=== PATIENT | male | born 1965 | race Caucasian/White ===

== ENCOUNTER 2021-04-20 14:09 | Outpatient (REF) | payer MEDICAID, SELFPAY | END 2021-04-20 14:10 | disposition home or self-care (01) | LOC: HO.SCI 14:09 | PROVIDERS: Visit Provider Nurse Practitioner Family | DX: Z13.89 Encounter for screening for other disorder (principal) ==

== ENCOUNTER 2021-07-24 10:24 | Outpatient (REF) | payer MEDICAID, SELFPAY ==
--- NOTE | ~2021-07-24 | US_ITS ---
EXAMINATION: US COMPLETE ABDOMEN WITH LIVER ELASTOGRAPHY CLINICAL INFORMATION: Viral hepatitis C. COMPARISON: None. TECHNIQUE: Real-time imaging of the abdominal viscera. Noninvasive ultrasound liver fibrosis assessment is performed using Uriah ElastPQ point quantification shear wave elastography (pSWE) with a C5-2 MHz transducer. Multiple elastography samples are obtained. FINDINGS: PANCREAS: Normal. The visualized pancreatic head and body are normal in appearance. The remainder of the pancreas is obscured from visualization by the overlying bowel gas. ABDOMINAL AORTA: The proximal, middle, and distal aortic segments are normal in caliber. INFERIOR VENA CAVA: Visualized portions are normal. LIVER: The liver demonstrates normal size, nodular contour and echogenicity. No focal lesion or intrahepatic biliary duct dilatation. The right lobe measures 17.3 cm in length. The left lobe measures 11.0 cm in length. Portal flow is hepatopedal. Shear wave liver elastography median stiffness is 1.71 m/s (reference: normal median stiffness is 1.3 m/s or less). IQR/median stiffness to assess sampling precision is 0.44 (reference: good quality data set is IQR/median stiffness of 0.15 or less). GALLBLADDER: Normal. The gallbladder is physiologically distended without evidence of stones, sludge, polyps, wall thickening or pericholecystic fluid. COMMON BILE DUCT: Normal in caliber measuring 0.2 cm in diameter. RIGHT KIDNEY: There is punctate foci lower pole with no twinkle artifact. No hydronephrosis. No renal calculi or focal parenchymal lesions. The kidney measures 11.4 cm in maximum dimension. LEFT KIDNEY: Normal. No hydronephrosis. No renal calculi or focal parenchymal lesions. The kidney measures 12.2 cm in maximum dimension. SPLEEN: Normal. The spleen measures 12.7 cm in maximum dimension. FREE FLUID: None. US/US abdomen comp w elastography IMPRESSION: 1. Punctate foci lower pole with no twinkle artifact. Question calcification right kidney. Slightly nodular surface of the liver but no focal lesion. Hepatopedal flow seen in the main portal vein on Doppler exam. 2. Liver elastography: Liver stiffness measures 1.71m/s; cACLD ruled out. REFERENCE: Society of Radiologists in Ultrasound Liver Stiffness Thresholds (2020): LIVER STIFFNESS THRESHOLDS: *Liver Stiffness equal or less than 1.3 m/s: High probability of being normal. *Liver Stiffness less than 1.7 m/s: In the absence of other known clinical signs, rules out compensated advanced chronic liver disease. *Liver Stiffness 1.7-2.1 m/s: Suggestive of compensated advanced chronic liver disease but need further test for confirmation. *Liver Stiffness over 2.1 m/s: Rules in compensated advanced chronic liver disease. *Liver Stiffness over 2.4 m/s: Suggestive of clinically significant portal hypertension. QUALITY OF DATA SET: *IQR/Median value equal or less than 0.15 implies a quality data set. *IQR/Median value over 0.15 implies a poor quality data set. SIGNIFICANT CHANGE FROM PRIOR EXAM: Significant change if liver stiffness measurement is 10% or greater from prior exam. OTHER CONSIDERATIONS: The stage of liver fibrosis may be overestimated in the setting of acute hepatitis, liver inflammation, elevated liver function tests, hepatic vascular congestion, obstructive cholestasis, non-fasting state, and infiltrative diseases such as amyloidosis and lymphoma. In some patients with NAFLD, the liver stiffness thresholds for compensated advanced chronic liver disease may be lower. In causes other than viral hepatitis and NAFLD, liver stiffness thresholds are not well established.
== END 2021-07-24 10:25 | disposition home or self-care (01) ==
LOC: HO.US 10:24
DX: B19.20 Unspecified viral hepatitis C without hepatic coma (principal)
CPT/HCPCS: 76705; 76981

== ENCOUNTER 2023-04-21 11:31 | Outpatient (REF) | payer MEDICAID, SELFPAY | END 2023-04-21 11:32 | disposition home or self-care (01) | LOC: HO.HHCL 11:31 | PROVIDERS: Visit Provider Emergency Medicine | DX: F11.20 Opioid dependence, uncomplicated (principal) | CPT/HCPCS: 36415; 86780 ==

== ENCOUNTER 2023-05-06 18:45 | Outpatient (REF) | payer MEDICAID, SELFPAY | END 2023-05-06 18:46 | disposition home or self-care (01) | LOC: HO.HHCLNP 18:45 | PROVIDERS: Visit Provider Registered Nurse | DX: L03.818 Cellulitis of other sites (principal) | CPT/HCPCS: 87070; 87491; 87591 ==

== ENCOUNTER 2023-05-16 08:56 | Outpatient (REF) | payer MEDICAID, SELFPAY ==
--- NOTE | ~2023-05-16 | XR_ITS ---
EXAMINATION: Bilateral knee x-ray CLINICAL INFORMATION: Pain COMPARISON: None. TECHNIQUE: Standing AP, lateral and sunrise views of both knees FINDINGS: Right: Bone alignment is normal. No fracture or dislocation. Normal joint spaces. No joint effusion. Left: Bone alignment is normal. No fracture or dislocation. Normal joint spaces. No joint effusion. XR/XR knee standing BI IMPRESSION: Unremarkable examination.
--- NOTE | ~2023-05-16 | XR_ITS ---
EXAMINATION: Bilateral knee x-ray CLINICAL INFORMATION: Pain COMPARISON: None. TECHNIQUE: Standing AP, lateral and sunrise views of both knees FINDINGS: Right: Bone alignment is normal. No fracture or dislocation. Normal joint spaces. No joint effusion. Left: Bone alignment is normal. No fracture or dislocation. Normal joint spaces. No joint effusion. XR/XR knee LT 2V IMPRESSION: Unremarkable examination.
--- NOTE | ~2023-05-16 | XR_ITS ---
EXAMINATION: Bilateral knee x-ray CLINICAL INFORMATION: Pain COMPARISON: None. TECHNIQUE: Standing AP, lateral and sunrise views of both knees FINDINGS: Right: Bone alignment is normal. No fracture or dislocation. Normal joint spaces. No joint effusion. Left: Bone alignment is normal. No fracture or dislocation. Normal joint spaces. No joint effusion. XR/XR knee RT 2V IMPRESSION: Unremarkable examination.
== END 2023-05-16 08:57 | disposition home or self-care (01) ==
LOC: HO.HOSX 08:56
PROVIDERS: Visit Provider Orthopaedic Surgery
DX: M17.11 Unilateral primary osteoarthritis, right knee (principal); M25.562 Pain in left knee; Z91.81 History of falling
CPT/HCPCS: 73560; 73565; 99202

== ENCOUNTER 2023-05-16 09:54 | Outpatient (AMB) | payer MEDICAID, SELFPAY ==
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
[2023-05-16 10:11] VITALS: BMI 32.7
== END 2023-05-16 10:33 | disposition home or self-care (01) ==
PROVIDERS: PCP Registered Nurse; Visit Provider Orthopaedic Surgery
DX: M17.11 Unilateral primary osteoarthritis, right knee (principal)
CPT/HCPCS: 99203

== ENCOUNTER 2023-06-20 10:38 | Outpatient (REF) | payer MEDICAID, SELFPAY | END 2023-06-20 10:39 | disposition home or self-care (01) | LOC: HO.HOSX 10:38 | PROVIDERS: Visit Provider Orthopaedic Surgery | DX: Z13.89 Encounter for screening for other disorder (principal) ==

== ENCOUNTER 2023-07-07 12:06 | Outpatient (REF) | payer MEDICAID, SELFPAY | END 2023-07-07 12:07 | disposition home or self-care (01) | LOC: HO.HOSX 12:06 | PROVIDERS: Visit Provider Orthopaedic Surgery | DX: Z13.89 Encounter for screening for other disorder (principal) ==

== ENCOUNTER 2024-01-28 15:02 | Outpatient (REF) | payer MEDICAID, SELFPAY ==
[2024-01-28 18:20] LABS: Appearance Urine Clear; Color Urine Yellow; Glucose Urine UA Negative (Negative); Leukocyte Esterase Urine Negative (Negative); Nitrite Urine Negative (Negative); Specific Gravity - Urine 1.015 (1.005-1.025); Urine Blood Negative (Negative); Urine Ketones Negative (Negative); Urine Protein Negative (Neg-Trace)
[2024-01-28 18:23] LABS: Bacteria Urine None Seen (None Seen); Hyaline Casts Urine 0-2 /LPF (0-2); RBC Urine 0-2 /HPF (0-2); Squamous Epithelial Cell Urine 0-2 /HPF (0-2); WBC Urine 0-5 /HPF (0-5)
[2024-01-28 18:37] LABS: Alanine Aminotransferase 49 U/L (0-40); Albumin Level 4.1 g/dL (3.5-5.0); Alkaline Phosphatase 77 U/L (39-117); Anion Gap 13 (12-20); Aspartate Amino Transferase 60 U/L (5-37); Bilirubin Total 0.4 mg/dL (0.0-1.0); Blood Urea Nitrogen 12 mg/dL (9-16); Calcium 8.4 mg/dL (8.4-10.2); Carbon Dioxide 23 mmol/L (22-29); Chloride 110 mmol/L (96-108); Estimated Glomerular Filt Rate > 60; Glucose Random 102 mg/dL (60-115); Potassium 3.8 mmol/L (3.3-5.1); Sodium 142 mmol/L (135-145)
[2024-01-28 18:48] LABS: TSH reflex Free T4 1.86 uIU/mL (0.32-4.0)
== END 2024-01-28 15:03 | disposition home or self-care (01) ==
LOC: HO.CHCLDS 15:02
PROVIDERS: Visit Provider Internal Medicine
DX: R60.0 Localized edema (principal)
CPT/HCPCS: 36415; 80053; 81001; 84443

== ENCOUNTER 2024-02-06 08:56 | Outpatient (REF) | payer MEDICAID, SELFPAY ==
--- NOTE | ~2024-02-06 | XR_ITS ---
EXAMINATION: XR SHOULDER, RIGHT CLINICAL INFORMATION: Reason for Exam M25.519 - Pain in unspecified shoulder COMPARISON: Shoulder 12/05/2009 TECHNIQUE: Four views of the shoulder. FINDINGS: No acute fracture or dislocation. Moderate osteoarthritis of the shoulder with loss of glenohumeral joint space and bulky osteophytes. Osteolysis of the distal clavicle which may be chronic posttraumatic in etiology. Soft tissues are unremarkable. XR/XR shoulder RT min 2V IMPRESSION: 1. Moderate osteoarthritis of the shoulder with loss of glenohumeral joint space and bulky osteophytes. 2. Osteolysis of the distal clavicle which may be chronic posttraumatic in etiology.
== END 2024-02-06 08:57 | disposition home or self-care (01) ==
LOC: HO.HOSX 08:56
PROVIDERS: Visit Provider Orthopaedic Surgery
DX: M25.511 Pain in right shoulder (principal); M75.101 Unspecified rotator cuff tear or rupture of right shoulder, not specified as traumatic; Z91.81 History of falling
CPT/HCPCS: 73030; 99212

== ENCOUNTER 2024-02-06 12:26 | Outpatient (AMB) | payer MEDICAID, SELFPAY ==
--- NOTE | 2024-02-06 12:32 | MHC.OFFVIS ---
Intake Visit Reasons: New Prob - Right shoulder Pain Intake Note: Ananda is a 58 year old right hand dominant male who presents today for a new problem visit with complaints of right shoulder pain s/p fall. Patient reports that he took a fall on 01/12/34, since the fall he has had increased pain and limited ROM. He explains that he felt a tearing sensation. Pain is felt all the time but worse with particularly movements. hx of arthroscopic surgeries of bilateral shoulders. MRI done at [facility] 01/08/24: IMPRESSION: 1. Large central rotator cuff tear. 2. Full-thickness tear of the subscapularis tendon. 3. Moderate chondrosis inferior glenoid with subchondral cystic change. 4. Large joint effusion. 5. Probable anterior inferior labral tear. Pieter Hooker MD Signed by Pieter Hooker MD Allergies No Known Allergies Allergy (Verified 05/16/23 10:13) HPI HPI New Prob - Right shoulder Pain: Details: Ananda is a 58 year old right hand dominant male who presents today for a new problem visit with complaints of right shoulder pain s/p fall. Patient reports that he took a fall on 01/12/34, since the fall he has had increased pain and limited ROM. He explains that he felt a tearing sensation. Pain is felt all the time but worse with particularly movements. hx of arthroscopic surgeries of bilateral shoulders. The last one was done > 10 years ago on the right. He states this was a RTC repair. No he feels weak and cannot sleep or engage in lifting/reaching activities. 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 \ MRI done at [facility] 01/08/24: IMPRESSION: 1. Large central rotator cuff tear. There is no obvious atrophy. 2. Full-thickness tear of the subscapularis tendon. 3. Moderate chondrosis inferior glenoid with subchondral cystic change. 4. Large joint effusion. 5. Probable anterior inferior labral tear. Assessment & Plan Assessment & Plan (1) Rotator cuff tear, right: Code(s): M75.101 - Unspecified rotator cuff tear or rupture of right shoulder, not specified as traumatic Category: Medical Plan: This is a 58 yo M with a large massive RTC tear in setting of prior surgery > 10 years ago. He fell ~ one month ago and has pain and weakness in both abduction and internal rotation. I recommend RTC repair. I discussed the risks benefits and alternatives including but not limited to the risk of pain, infection, stiffness, need for further surgery as well as potential medical complications such as blood clots, pulmonary embolism and cardiac complications. He takes a very low dose of methadone which we discussed. This is chronic. Plan Our surgical forceps fabricator will reach out to book surgery, Right RTC Repair Orders: Orders XR shoulder RT min 2V 02/06/24 M25.519 - Pain in unspecified shoulder Coding Level of Care Code Est Pt Level 4 (99467) Diagnoses Rotator cuff tear, right M75.101
== END 2024-02-06 13:32 | disposition home or self-care (01) ==
PROVIDERS: PCP Registered Nurse; Visit Provider Orthopaedic Surgery
DX: S46.011A Strain of muscle(s) and tendon(s) of the rotator cuff of right shoulder, initial encounter (principal)
CPT/HCPCS: 99214

== ENCOUNTER 2024-04-16 11:12 | Outpatient (REF) | payer MEDICAID, SELFPAY | END 2024-04-16 11:13 | disposition home or self-care (01) | LOC: HO.LNP 11:12 | PROVIDERS: Visit Provider Emergency Medicine | DX: F11.20 Opioid dependence, uncomplicated (principal) | CPT/HCPCS: 80307 ==

== ENCOUNTER 2024-05-18 11:01 | Outpatient (REF) | payer MEDICAID, SELFPAY ==
[2024-05-18 13:30] LABS: MANUAL DIFF FLAG NO
[2024-05-18 13:38] LABS: INTERNATIONAL NORM RATIO 0.9 (0.9-1.1); Prothrombin Time 11.5 SEC (11.1-13.3)
[2024-05-18 13:50] LABS: Basophils Percent Auto 0.7 % (0-2); Eosinophils Absolute Auto 0.2 X10*3/uL (0.0-0.4); Eosinophils Percent Auto 4.8 % (0-4); Hematocrit 36.8 % (42.0-52.0); Hemoglobin 12.7 g/dl (14.0-18.0); Imm Gran Abs Auto 0.02 X10*3/uL (0.00-0.03); Imm Gran Pct Auto 0.4 % (0.0-0.4); Lymphocytes Absolute Auto 1.5 X10*3/uL (1.2-4.9); Lymphocytes Percent Auto 32.7 % (20-40); Mean Corpuscular HGB Conc 34.5 g/dl (31.0-36.0); Mean Corpuscular Hemoglobin 36.1 pg (27.0-33.0); Mean Corpuscular Volume 104.5 fL (80.0-98.0); Mean Platelet Volume 10.7 fL (9.4-12.4); Monocytes Absolute Auto 0.4 X10*3/uL (0.1-1.2); Monocytes Percent Auto 8.6 % (2-11); Neutrophils Absolute Auto 2.4 x10*3/uL (2.0-8.3); Neutrophils Percent Auto 52.8 % (45-73); Platelet Count 179 X10*3/uL (160-400); Red Blood Count 3.52 X10*6/uL (4.60-5.80); Red Cell Distribution Width 14.6 % (11.0-16.0); White Blood Count 4.6 X10*3/uL (4.8-10.8)
[2024-05-18 14:03] LABS: Alanine Aminotransferase 34 U/L (0-40); Albumin Level 3.9 g/dL (3.5-5.0); Alkaline Phosphatase 68 U/L (39-117); Anion Gap 15 (12-20); Aspartate Amino Transferase 58 U/L (5-37); Bilirubin Total 0.5 mg/dL (0.0-1.0); Blood Urea Nitrogen 9 mg/dL (9-16); Calcium 8.3 mg/dL (8.4-10.2); Carbon Dioxide 20 mmol/L (22-29); Chloride 112 mmol/L (96-108); Estimated Glomerular Filt Rate > 60; Glucose Random 122 mg/dL (60-115); Potassium 3.8 mmol/L (3.3-5.1); Sodium 143 mmol/L (135-145); Total Protein 6.7 g/dL (6.5-8.0)
== END 2024-05-18 11:02 | disposition home or self-care (01) ==
LOC: HO.HHCL 11:01
PROVIDERS: Visit Provider Family Medicine
DX: Z01.812 Encounter for preprocedural laboratory examination (principal)
CPT/HCPCS: 36415; 80053; 85025; 85610

== ENCOUNTER 2024-08-26 08:34 | Outpatient (AMB) | payer MEDICAID, SELFPAY ==
--- NOTE | 2024-08-26 08:36 | A.OFFVIS_ITS ---
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 He denies any previous cardiac history including coronary disease or myocardial infarction or cardiomyopathy. However, he has got many other issues listed including bronchiectasis, COPD, history of opiate dependence and currently taking Suboxone. Long-term smoking but not in the last few months. Per [facility], there is also mention of congestive heart failure. EKG today shows bifascicular block. Apparently, he also need shoulder surgery and requires preoperative evaluation. Within limits of his activity, he does not really have any overt complaints. Denies any angina or shortness of breath. [facility] Medical History (Updated 08/26/24 @ 08:55 by Vaughn Jacobo MD) Acute respiratory failure with hypoxia Knee pain Skin lesion Obesity Tobacco use Cellulitis Atopic dermatitis Opioid dependence Viral hepatitis C Rupture of rotator cuff of shoulder Orthopedic hardware present Opioid abuse Depression Anxiety Lumbar radiculopathy History of alcohol abuse Chronic pain Family History (Updated 08/26/24 @ 08:52 by Vaughn Jacobo MD) Father No problems noted. Mother No problems noted. 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 Review of Systems Const Denies chills, Denies fatigue, Denies fever(s), Denies frequent falls, Denies weakness, Denies weight gain and Denies weight loss ENT Denies dizziness Card Denies chest pain, Denies leg edema, Denies lightheadedness, Denies palpitations, Denies dyspnea, Denies dyspnea on exertion and Denies orthopnea Resp Denies cough, Denies dyspnea and Denies dyspnea on exertion GI Denies bloating and Denies change in bowel habits Musc Denies muscle weakness, Denies numbness and Denies tingling Neuro Denies dizziness, Denies frequent falls, Denies numbness, Denies tingling and Denies weakness Endo Denies fatigue and Denies palpitations Physical Exam Vital Signs: Last Vital Signs Pulse 91 08/26/24 08:37 BP 130/72 08/26/24 08:37 BMI result Body Mass Index 33.8 Const General: comfortable and no acute distress Orientation/consciousness: patient oriented x3 HEENT Other: Unremarkable Head: Yes normal to inspection Neck Neck: Yes normal visual inspection Chest Chest palpation & inspection: normal inspection of the chest Resp Auscultation: clear to auscultation bilaterally Cardio Palpation: normal PMI Heart sounds: S1 normal heart sound present, S2 normal heart sound present, no gallops, no murmurs and no rubs GI Palpation (GI): Soft to palpation Back/Spine/Pelvis Other: unremarkable Skin General skin exam: no rashes or lesions noted Neuro General: patient oriented x3 Extrem General: Yes normal to inspection Psych Mental Status: mental status grossly normal Office Procedures EKG Details: EKG with underlying sinus rhythm at 91/Min; right bundle-branch block and left anterior fascicular [place]; [place]. [id number], Complete Assessment & Plan Assessment & Plan (1) Preoperative cardiovascular examination: Code(s): Z01.810 - Encounter for preprocedural cardiovascular examination Category: Medical (2) Bifascicular block: Code(s): I45.2 - Bifascicular block Category: Medical Plan EKG with bifascicular block pattern. Clinically, no overt symptoms. Considering smoking history as well as substance abuse history, needs further cardiac evaluation. Echocardiogram/stress test ordered. He has some ankle pain but states he can still try to walk on the treadmill. Hence we can get as much information is able. We can review these and make an addendum. Orders: Orders CA echo transthoracic complete Today I45.2 - Bifascicular block CA echo stress exercise Today I45.2 - Bifascicular block Coding Level of Care Code New Pt Level 4 (79128) Diagnoses Preoperative cardiovascular examination Z01.810 Bifascicular block I45.2 CPT Codes EKG - CPT: 15384-[id number], Complete ([id number])
[2024-08-26 08:37] VITALS: BP 130/72; PULSE 91; BMI 33.8
== END 2024-08-26 09:05 | disposition home or self-care (01) ==
PROVIDERS: PCP Registered Nurse; Visit Provider Internal Medicine
DX: Z01.810 Encounter for preprocedural cardiovascular examination (principal); I45.2 Bifascicular block
CPT/HCPCS: 93010; 99204

== ENCOUNTER → 2024-08-26 08:34 | Outpatient (BNVA) | payer MEDICAID, SELFPAY | PROVIDERS: PCP Registered Nurse; Visit Provider Internal Medicine | DX: Z01.810 Encounter for preprocedural cardiovascular examination (principal); I45.2 Bifascicular block; F11.20 Opioid dependence, uncomplicated; Z79.899 Other long term (current) drug therapy | CPT/HCPCS: 93005; 99202 ==

== ENCOUNTER → 2024-09-21 14:06 | Outpatient (REF) | payer MEDICAID, SELFPAY ==
--- NOTE | 2024-09-21 14:08 | CA_ITS ---
Transthoracic Echocardiogram Patient (Last, First, Middle): Ananda Coles, Gender: Male Date of : 1965 Age: 59 Procedure Date: 09/21/2024 Procedure Type: Transthoracic Echocardiogram Location: OP Height: 172.72 cm Weight: 97.52 kg BSA: 2.11 m2 Heart Rate: bpm BP: 124 / 70 mmHg Hospital Education Coordinator: Referring MD: Vaughn Jacobo MD Panel Flow Machine Operator: Erasmo Tang MD Symptoms: I45.2 - Bifascicular block, Pre op Study Quality: Fair ECG Rhythm: Sinus Conclusions: - 1. Technically limited study 2. Normal LV ejection fraction of 55-60% with mild LVH with grade 1 diastolic dysfunction 3. Cardiac valvular Dopplers within normal limits 4. Mildly dilated ascending aorta at 3.8 cm 5. Normal RV systolic pressure Findings Procedure Information Contrast agent, definity, is being given per protocol without apparent complications. Left Ventricle Normal left ventricular size and systolic function. There is mildly increased left ventricular wall thickness. The visually estimated ejection fraction is between 55-60%. Regional wall motion abnormalities can not be excluded due to suboptimal endocardial definition. Spectral Doppler is indicative of an impaired relaxation filling pattern. E/E prime ratio is <8, consistent with normal filling pressures. Evidence suggests grade I (mild) diastolic dysfunction. Right Ventricle The right ventricle was not well visualized. Atria The left atrium is likely dilated. Interatrial shunt cannot be excluded. The right atrium was not well visualized. Aortic Valve The aortic valve was not well visualized. There is no aortic valve stenosis. There is no aortic valve regurgitation. Mitral Valve Likely normal mitral valve structure and function. There is trace mitral valve regurgitation. There is no mitral valve stenosis. Pulmonic Valve The pulmonic valve was not well visualized. Tricuspid Valve Likely normal tricuspid valve structure and function. There is trace tricuspid valve regurgitation. The right ventricular systolic pressure is normal. The right ventricular systolic pressure is 13 mmHg. Normal right atrial pressure. There is no evidence of pulmonary hypertension. Great Vessels The pulmonary artery was not well visualized. There is mild dilatation of the ascending aorta measuring 3.80 cm. Venous The inferior vena cava is normal in size. Pericardium/Pleural There is no evidence of pericardial effusion. Prior Study Comparison No prior study available for comparison. Measurements 2D Linear Measurements IVSd: 1.33 0.6-0.9/0.6-1.0 cm LVIDd: 5.21 3.9-5.3/4.2-5.9 cm LVIDd Index: 2.47 2.4-3.2/2.2-3.1 cm/m2 LVIDs: 3.24 2.0-3.6 cm LVPWd: 1.30 0.7-1.1 cm Ao Root: 3.90 2.1-3.5 cm LA Diam: 4.40 2.7-3.8/3.0-4.0 cm LAIDs Index: 2.09 1.5-2.3 cm/m2 LV Mass: 354.09 67-162/88-224 g LV Mass Index: 167.81 43-95/49-115 g/m2 LVOT Diam: 2.60 3.0+(-)1.3 cm 2D Systolic Function EF 4C: 60.00 >55% EF 2C: 58.20 >55% EF BiP: 58.70 >55% Mitral Valve MV Pk E: 0.38 MV PK A: 0.76 MV Decel Time: 127.00 E/A: 0.50 E'Lateral: 7.29 E'Medial: 3.59 E/E' Med: 10.60 E/E' Lat: 5.20 PHT: 37.00 MVA PHT: 5.95 Decel Woodruff: 2.99 Aortic Valve AoV Pk Ho: 1.15 AoV Mn Ho: 0.77 AoV VTI: 0.25 AoV Pk Grad: 5.00 Aov Mn Grad: 3.00 SELENA Cont.VTI: 3.81 LVOT LVOT Pk Ho: 0.89 LVOT Mn Ho: 0.58 LVOT VTI: 0.18 LVOT Pk Grad: 3.00 LVOT Mn Grad: 2.00 LVOT Diam: 2.60 LVOT Area: 5.31 Diastolic Function MV Pk E: 0.38 MV Pk A: 0.76 E/A: 0.50 E'Medial: 3.59 E/E' Med: 10.60 E' Laterial: 7.29 E/E' Lat: 5.20 Right Ventricle TAPSE (mm): 19.00 TVS' Ho: 10.00 Tricuspid Valve TR Pk Ho: 1.55 TR Pk Grad: 10.00 RA Press: 3.00 RVSP: 13.00 Great Vessels Aorta Ao Root-2D: 3.90 2.0-3.7 cm Ao Asc: 3.80 2.1-3.4 cm Pulmonary Valve PV Pk Ho: 0.77 Peak PV Grad: 2.00 Updated in Other Vendor System with Status of Final Erasmo Tang MD electronically signed on 09/22/2024 5:44:32 PM with status of Final
== END ==
LOC: HO.CARD 14:06
PROVIDERS: PCP Registered Nurse; Visit Provider Internal Medicine
DX: I45.2 Bifascicular block (principal)
CPT/HCPCS: 93306; Q9957

== ENCOUNTER → 2024-09-21 14:08 | Outpatient (BNV) | payer MEDICAID, SELFPAY | PROVIDERS: PCP Registered Nurse; Visit Provider Internal Medicine Cardiovascular Disease | DX: I42.8 Other cardiomyopathies (principal) | CPT/HCPCS: 93306 ==

== ENCOUNTER 2024-09-30 17:28 | Inpatient (IN) | payer MEDICAID, SELFPAY ==
--- NOTE | ~2024-09-30 | CT_ITS ---
EXAMINATION: CT HEAD WITHOUT CONTRAST CLINICAL INFORMATION: Seizure , fall and dizziness. COMPARISON: None available. TECHNIQUE: Contiguous axial imaging was performed from the skull base to vertex without intravenous administration of contrast. This CT examination was performed using dose optimization techniques as appropriate, variously including the following: *Automated exposure control *Adjustment of mA and/or kV according to patient size (this includes techniques or standardized protocols for targeted exams where dose is matched to indication/reason for exam; i.e. extremities or head) *Use of iterative reconstruction technique DLP: 716 mGy-cm FINDINGS: There is no acute intra-axial, extra-axial bleed, masses or midline shift. There is no acute infarction evolution. There is no edema. The mortensen to white matter differentiation is maintained normal. The lateral ventricles are symmetrical in size but enlarged. Bone windows reveal no calvarial abnormality. There is no scalp soft tissue abnormality. Mild mucoperiosteal thickening seen in the right maxillary sinus. Rest of the paranasal sinuses are well-aerated and clear. CT/CT head/brain wo IV con IMPRESSION: 1. No acute intracranial process seen. 2. Mild chronic right maxillary sinus inflammatory changes. Electronically signed by: Vu Lopez MD 09/30/2024 10:15 PM THIERRY
[2024-09-30 17:35] VITALS: BP 141/73; PULSE 114; O2SAT 92
--- NOTE | 2024-09-30 17:44 | ECG_ITS ---
Test Reason : SEIZURE Blood Pressure : / mmHG Vent. Rate : 083 BPM Atrial Rate : 083 BPM P-R Int : 178 ms QRS Dur : 164 ms QT Int : 434 ms P-R-T Axes : 047 -43 010 degrees QTc Int : 509 ms Normal sinus rhythm Left axis deviation Right bundle branch block Abnormal ECG No previous ECGs available Referred By: Kyung Oconnor Electronically Signed By:CHASE SAMANO
[2024-09-30 17:49] VITALS: BP 123/89; PULSE 103; RESP 18; TEMP 36.6; O2SAT 96; BMI 34.2
--- NOTE | 2024-09-30 18:00 | ED_ITS ---
HPI - Seizure General Chief Complaint: Seizure Stated Complaint: found unresponsive,hx seizures,nips found on scene Time Seen by Provider: 09/30/24 17:33 Source: patient, EMS and old records reviewed Mode of arrival: EMS Limitations: other (postictal) History of Present Illness ED Provider: MUKUL HPI Narrative: 59 yo male with PMH of depression, anxiety, opiate abuse, ETOH abuse, reported prior seizure but he tells me he is not on meds and they are not related to withdrawal - he reportedly was sitting in a chair and friends found him confused, speech slurred and nips were on the scene. He tells me he had a seizure, no head trauma. He states he is fine and this has happened before. He is very upset at the mention of possible CT head and states he had no trauma and he refuses imaging. He is alert and oriented x 3 but speech is hard to understand he did bite his tongue. MD complaint: possible seizure Onset (ago): unknown Witnessed: No Trauma: No Seizure History: Yes Place: Home Possible Precipitating Event: alcohol withdrawal and medication Associated symptoms: denies other symptoms Treatments prior to arrival: none Related Data Home Medications ?Medication ?Instructions ?Recorded ?Confirmed gabapentin 300 mg capsule 300 mg PO TID 08/26/24 08/26/24 Allergies Allergy/AdvReac Type Severity Reaction Status Date / Time No Known Allergies Allergy Verified 09/30/24 17:57 Review of Systems 2 Review of Systems: Constitutional : No Fever, No Chills, No Fatigue ENT/Mouth : No sore throat, No Rhinorrhea Eyes: No Eye Pain, No Swelling, No Redness Cardiovascular : No Chest Pain, No SOB, No Dyspnea on Exertion Respiratory : No Cough, No Sputum Gastrointestinal : No Nausea, No Vomiting, No Diarrhea, No abdominal Pain Genitourinary : No Dysuria, No Urinary Frequency, No Hematuria, Musculoskeletal : No joint pain, No Myalgias, No Joint Swelling Skin : No Skin Lesions, No rash Neuro : No Weakness, No Numbness, No Dizziness, no Headache Psych : No Anxiety/Panic, No Depression All other systems reviewed and are negative [facility] Past Medical History Attestation statement: The following information was validated with the patient. Source: old records reviewed Medical History Acute respiratory failure with hypoxia Knee pain Skin lesion Obesity Tobacco use Cellulitis Atopic dermatitis Opioid dependence Viral hepatitis C Rupture of rotator cuff of shoulder Orthopedic hardware present Opioid abuse Depression Anxiety Lumbar radiculopathy History of alcohol abuse Chronic pain Family History Family History (Updated 08/26/24 @ 08:52 by Vaughn Jacobo MD) Father No problems noted. Mother No problems noted. 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 Oriented X3. No acute distress. Eyes: Pupils equal, round and reactive to light. ENT: Pharynx mild abrasion on L lateral aspect of tongue Neck: Normal inspection. Neck supple. CVS: Normal heart rate and rhythm. Pulses normal. Respiratory: No respiratory distress. Breath sounds normal. Abdomen: Soft and non-tender. Skin: Skin warm and dry. Normal skin color. Normal skin turgor. Extremities: No lower extremity edema. No calf ttp Neuro: Oriented X 3. No motor deficit. No sensory deficit. speech slurred on arrival then cleared up Course Course Course Narrative: agreed to labs consistent with elevated liver enzymes and ETOH use 171 level Medications Administered Discontinued Medications Generic Name Dose Route Start Last Admin Trade Name Freq PRN Reason Stop Dose Admin Thiamine HCl 200 mg/ Sodium 102 mls @ 204 mls/hr 09/30/24 20:56 09/30/24 21:10 Chloride IV 09/30/24 21:25 204 mls/hr ONCE ONE Administration Medical Decision Making Medical Decision Making MDM Narrative: 59 yo male with PMH of depression, anxiety, opiate abuse, ETOH abuse, reported prior seizure here with c/o possible seizure but then refuses imaging, labs, he states this has happened before but not due to withdrawal. He is GCS 15 and is able to refuse care. Will continue to offer workup and monitor Differential Diagnosis Differential Diagnoses: The differential diagnosis associated with the presentation includes seizure, intoxication, withdrawal Admission/Observation Consideration of admission/observation: Escalation of care including admission/observation considered patient now less angry he states he remembers talking to friends sitting in a chair felt his body tense and then he cannot remember he states he drank as much ETOH as he normally does, he agrees to labs now and CT scan will start on phenobarb and admit for seizure and ETOH use Consult Healthcare Provider Management of the patient was discussed with: Hospitalist (will admit) Lab Data MDM Lab Attestation statement: I reviewed the patient's lab results. 09/30/24 19:46 09/30/24 19:46 Labs: Lab Results 09/30/24 Range/Units 19:46 WBC 6.8 (4.8-10.8) X10*3/uL RBC 3.93 L (4.60-5.80) X10*6/uL Hgb 14.2 (14.0-18.0) g/dl Hct 38.5 L (42.0-52.0) % MCV 98.0 (80.0-98.0) fL MCH 36.1 H (27.0-33.0) pg MCHC 36.9 H (31.0-36.0) g/dl RDW 13.8 (11.0-16.0) % Plt Count 166 (160-400) X10*3/uL MPV 9.8 (9.4-12.4) fL Immature Gran % (Auto) 0.4 (0.0-0.4) % Neut % (Auto) 55.9 (45-73) % Lymph % (Auto) 36.5 (20-40) % Andrews % (Auto) 5.4 (2-11) % Eos % (Auto) 1.2 (0-4) % Baso % (Auto) 0.6 (0-2) % Lymph # (Auto) 2.5 (1.2-4.9) X10*3/uL Andrews # (Auto) 0.4 (0.1-1.2) X10*3/uL Eos # (Auto) 0.1 (0.0-0.4) X10*3/uL Baso # (Auto) 0.0 (0.0-0.2) X10*3/uL Abs Immat Gran (auto) 0.03 (0.00-0.03) X10*3/uL Absolute Neuts (auto) 3.8 (2.0-8.3) x10*3/uL Absolute Nucleated RBC 0.000 (0.0-0.012) X10*3/uL Nucleated RBC % (auto) 0.0 (0.0-0.2) /100WBC Sodium 145 (135-145) mmol/L Potassium 3.3 (3.3-5.1) mmol/L Chloride 108 (96-108) mmol/L Carbon Dioxide 23 (22-29) mmol/L Anion Gap 17 (12-20) BUN 14 (9-16) mg/dL Creatinine 1.08 (0.5-1.4) mg/dL Estim Creat Clear Calc 85.2 Estimated GFR > 60 Random Glucose 116 H (60-115) mg/dL Calcium 8.5 (8.4-10.2) mg/dL Magnesium 1.8 (1.6-2.6) mg/dL Total Bilirubin 1.6 H (0.0-1.0) mg/dL Direct Bilirubin 0.7 H (0.0-0.5) mg/dL AST 377 H (5-37) U/L ALT 144 H (0-40) U/L Alkaline Phosphatase 51 (39-117) U/L Total Creatine Kinase 199 H (38-174) U/L Troponin I High Sens 5.2 (<3.5-35.0) ng/L Total Protein 7.2 (6.5-8.0) g/dL Albumin 4.2 (3.5-5.0) g/dL Lipase 21 (8-78) U/L Ethyl Alcohol 171 mg/dL Influenza Type A (PCR) NEGATIVE (Negative) Influenza Type B (PCR) NEGATIVE (Negative) RSV RNA Qual (PCR) NEGATIVE (Negative) SARS-CoV-2 RNA (RT-PCR) NEGATIVE (Negative) Independent Interpretation I performed an independent interpretation of an: EKG and CT Scan (normal ) Interpretation: Rate: 83 Rhythm: NSR Melissa: left Normal P waves. Normal GRACE. RBBB ST T wave : inverted t waves V1 and V2/V3, no NADINE qTC: 509 prior studies: no acute ischemia The study has been interpreted contemporaneously by me. . Radiology Impression Discussion of test interpretation with radiology: I have reviewed the radiologist's reading. Independent Historian Clinical information obtained from an independent historian. History obtained from or confirmed by: EMS External Record Review External record reviewed: Outpatient record Discharge Plan Discharge Clinical Impression: Seizure, Elevated liver enzymes, Alcohol intoxication Patient Disposition: Admitted As Inpatient Prescriptions: No Action gabapentin 300 mg capsule 300 mg PO TID Print Language: Pashto
--- NOTE | 2024-09-30 18:23 | PC.NURSE ---
patient being rude and aggressive and refusing lab draw and medications.
--- NOTE | 2024-09-30 18:25 | PC.NURSE ---
after some attempt at therapeutic communication and education on importance of treatment patient refuses any further care and states I just need a little more time to wake up and so I can just walk out . made aware.
--- NOTE | 2024-09-30 18:35 | MHC.EDTECH ---
Patient was sitting on edge of the bed when T/W entered the room . Patient started to yell that he didn't feel good. T/W approached patient he became belligerent refusing blood draws, seizure pads. Stating he was already stuck like a fucking stuffed pig. . I explained the EKG and patient reluctantly agreed. As I prepared patient for EKG he raised a fist at me .I told patient that behavior would not be tolerated. Heallowed the EKG. Nurse and notified.
[2024-09-30 19:52] LABS: MANUAL DIFF FLAG NO
[2024-09-30 19:53] LABS: Basophils Percent Auto 0.6 % (0-2); Eosinophils Absolute Auto 0.1 X10*3/uL (0.0-0.4); Eosinophils Percent Auto 1.2 % (0-4); Hematocrit 38.5 % (42.0-52.0); Hemoglobin 14.2 g/dl (14.0-18.0); Imm Gran Abs Auto 0.03 X10*3/uL (0.00-0.03); Imm Gran Pct Auto 0.4 % (0.0-0.4); Lymphocytes Absolute Auto 2.5 X10*3/uL (1.2-4.9); Lymphocytes Percent Auto 36.5 % (20-40); Mean Corpuscular HGB Conc 36.9 g/dl (31.0-36.0); Mean Corpuscular Hemoglobin 36.1 pg (27.0-33.0); Mean Platelet Volume 9.8 fL (9.4-12.4); Monocytes Absolute Auto 0.4 X10*3/uL (0.1-1.2); Monocytes Percent Auto 5.4 % (2-11); Neutrophils Absolute Auto 3.8 x10*3/uL (2.0-8.3); Neutrophils Percent Auto 55.9 % (45-73); Platelet Count 166 X10*3/uL (160-400); Red Blood Count 3.93 X10*6/uL (4.60-5.80); Red Cell Distribution Width 13.8 % (11.0-16.0); White Blood Count 6.8 X10*3/uL (4.8-10.8)
[2024-09-30 20:11] LABS: Ethanol 171 mg/dL
[2024-09-30 20:13] VITALS: BP 142/91; PULSE 70; RESP 18; TEMP 36.7; O2SAT 92
[2024-09-30 20:15] LABS: Alanine Aminotransferase 144 U/L (0-40); Albumin Level 4.2 g/dL (3.5-5.0); Alkaline Phosphatase 51 U/L (39-117); Anion Gap 17 (12-20); Aspartate Amino Transferase 377 U/L (5-37); Bilirubin Direct 0.7 mg/dL (0.0-0.5); Bilirubin Total 1.6 mg/dL (0.0-1.0); Blood Urea Nitrogen 14 mg/dL (9-16); Calcium 8.5 mg/dL (8.4-10.2); Carbon Dioxide 23 mmol/L (22-29); Chloride 108 mmol/L (96-108); Creatinine Clr Calc Pharmacy 85.2; Estimated Glomerular Filt Rate > 60; Glucose Random 116 mg/dL (60-115); Lipase 21 U/L (8-78); Magnesium 1.8 mg/dL (1.6-2.6); Potassium 3.3 mmol/L (3.3-5.1); Sodium 145 mmol/L (135-145); Total Protein 7.2 g/dL (6.5-8.0)
[2024-09-30 20:20] LABS: Troponin-I High Sensitivity 5.2 ng/L (<3.5-35.0)
[2024-09-30 20:35] LABS: Influenza A PCR NEGATIVE (Negative); Influenza B PCR NEGATIVE (Negative); Resp Syncy Virus RNA Qual PCR NEGATIVE (Negative); SARS COV2 PCR INHOUSE NEGATIVE (Negative)
--- NOTE | 2024-09-30 20:43 | PC.NURSE ---
Assumed care of pt at 1900. PT a/ox4, calm and cooperative and apologized for prior behaviors states he is no longer grumpy willing to do labs- labs. PT reports he drinks daily 7 nips. PT requested and provided sandwich and beverage.
[2024-09-30] MEDS: Thiamine HCL 200 MG in 0.9 % Sodium Chloride 100 ML 204 MG IV (21:10)
--- NOTE | 2024-09-30 21:56 | PM.IMHP ---
History of Present Illness Date of Service: 09/30/24 <MEIR Grossman - Last Filed: 09/30/24 23:14> Attending physician on admission: Reina Phillips <MEIR Grossman - Last Filed: 09/30/24 23:14> Chief Complaint: ?Seizure <MEIR Grossman - Last Filed: 09/30/24 23:14> Pt is a 59-year-old male with a PMH significant for HTN, COPD, ?CHF, opiate use disorder on Suboxone, and alcohol use disorder not on home meds who presents to the ED after pt was found by friends in a motel room sitting in a chair unresponsive. Pt apparently eventually woke up and was confused with slurred speech. Multiple nips were also found near the patient. Patient is a rather poor and vague historian. States he was visiting friends when he ?felt a seizure? coming on. [place] very sweaty, though is unable to further elaborate on what other symptoms he experienced. Reports this has happened a few times in the past, though it is unclear exactly how long ago these were, possibly a few years ago. Patient reports he is currently experiencing a great deal anxiety, though otherwise feels fine without any acute medical complaints. Denies headache or acute vision changes. No auditory or visual hallucinations. Denies diaphoresis. No nausea, vomiting, abdominal pain. Denies chest pain/pressure, palpitations. No shortness a breath or difficulty breathing. Patient is a rather vague as to how much he drinks, though admits to drinking at least 7 nips daily for ?quite awhile?; last drink around noon today. Denies history of alcohol withdrawal in the past. Has not seen anyone from Neurology for possible seizure disorder. In the ED pt was tachycardic up to 103 with vitals otherwise WNL and stable Labs were significant for T bili 1.6, AST 377, ALT 144, and ethyl alcohol level 171. No leukocytosis. Stable H&H. No significant electrolyte abnormalities. Renal function baseline. Troponin WNL. Magnesium WNL. Tested negative for flu, COVID, RSV. CTA of head negative for acute intracranial process. EKG demonstrated normal sinus rhythm with RBBB. Pt was treated with thiamine 200 mg IV, acetaminophen, and started on phenobarb protocol. Pt will be admitted to the hospital for treatment and further evaluation of possible seizure activity in the setting of acute alcohol withdrawal. <MEIR Grossman - Last Filed: 09/30/24 23:14> Review of Systems Review of Systems: Negative except for that which is stated in the HPI <MEIR Grossman - Last Filed: 09/30/24 23:14> FOR[facility] Medical History: Medical History Acute respiratory failure with hypoxia Knee pain Skin lesion Obesity Tobacco use Cellulitis Atopic dermatitis Opioid dependence Viral hepatitis C Rupture of rotator cuff of shoulder Orthopedic hardware present Opioid abuse Depression Anxiety Lumbar radiculopathy History of alcohol abuse Chronic pain <MEIR Grossman - Last Filed: 09/30/24 23:14> Family History: Family History Father No problems noted. Mother No problems noted. 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 <MEIR Grossman - Last Filed: 09/30/24 23:14> Meds Allergies/Adverse reactions: Allergies Allergy/AdvReac Type Severity Reaction Status Date / Time No Known Allergies Allergy Verified 09/30/24 17:57 <MEIR Grossman - Last Filed: 09/30/24 23:14> Active Medications: Current Medications Pharmacy Consult (Consult Rx Etoh Phenob Im/Po) 1 each MISCELLANE ONCE PRN; Protocol PRN Reason: Consult order Phenobarbital (Phenobarbital 15 Mg Tablet) 45 mg PO BID NATHALIE Stop: 10/02/24 21:01 Phenobarbital (Phenobarbital 15 Mg Tablet) 15 mg PO BID NATHALIE Stop: 10/04/24 21:01 Phenobarbital (Phenobarbital 15 Mg Tablet) 15 mg PO DAILY NATHALIE Stop: 10/06/24 09:01 Phenobarbital Sodium (Phenobarbital Sodium 130 Mg/Ml Im Once) 274 mg IM ONCE@2200 NATHALIE Stop: 09/30/24 22:01 Phenobarbital Sodium (Phenobarbital Sodium 130 Mg/Ml Vial Im Q3hx2) 205 mg IM 0100,0400 NATHALIE Stop: 10/01/24 04:01 <MEIR Grossman - Last Filed: 09/30/24 23:14> Home medications: Home Medications ?Medication ?Instructions ?Recorded ?Confirmed ?Last Taken ?Type gabapentin 300 mg capsule 300 mg PO TID 08/26/24 08/26/24 Unknown History <MEIR Grossman - Last Filed: 09/30/24 23:14> Physical Exam Vital Signs and Narrative: Vital Signs: Last Vital Signs Temp 98.0 F 09/30/24 20:13 Pulse 70 09/30/24 20:13 Resp 18 09/30/24 20:13 BP 142/91 H 09/30/24 20:13 Pulse Ox 92 09/30/24 20:13 O2 Del Method Room Air 09/30/24 20:13 BMI result Body Mass Index 34.2 <MEIR Grossman - Last Filed: 09/30/24 23:14> Constitutional: Alert, in no acute distress. Mental Status: Oriented to person, place and time. Eyes: Pupils are equal, round, and reactive to light. Ear, Nose, and Throat: Oropharynx clear, mucous membranes moist. Ears and nose without deformities. Trachea midline. Respiratory: Clear to auscultation bilaterally. No wheezing, rales, or rhonchi. Cardiovascular: S1, S2 regular. No murmurs, rubs, or gallops. Gastrointestinal: Abdomen soft, non-tender, non-distended. Normal bowel sounds. Neurologic: Cranial nerves II-XII are grossly intact bilaterally. No focal neurological deficits. Moves all extremities spontaneously. Mild upper extremity tremors noted. Skin: Warm, dry. Musculoskeletal: No cyanosis or clubbing. Extremities: No edema. Psychiatric: Normal mood and affect. <MEIR Grossman - Last Filed: 09/30/24 23:14> Results Labs CBC and Chem 7: 09/30/24 19:46 09/30/24 19:46 <MEIR Grossman - Last Filed: 09/30/24 23:14> Labs: Laboratory Results - last 24 hr 09/30/24 19:46 MCV 98.0 MCH 36.1 H MCHC 36.9 H RDW 13.8 Plt Count 166 MPV 9.8 Immature Gran % (Auto) 0.4 Neut % (Auto) 55.9 Lymph % (Auto) 36.5 Mccone % (Auto) 5.4 Eos % (Auto) 1.2 Baso % (Auto) 0.6 Lymph # (Auto) 2.5 Mccone # (Auto) 0.4 Eos # (Auto) 0.1 Baso # (Auto) 0.0 Abs Immat Gran (auto) 0.03 Absolute Neuts (auto) 3.8 Absolute Nucleated RBC 0.000 Nucleated RBC % (auto) 0.0 Anion Gap 17 Estim Creat Clear Calc 85.2 Estimated GFR > 60 Random Glucose 116 H Calcium 8.5 Magnesium 1.8 Total Bilirubin 1.6 H Direct Bilirubin 0.7 H AST 377 H ALT 144 H Alkaline Phosphatase 51 Total Creatine Kinase 199 H Troponin I High Sens 5.2 Total Protein 7.2 Albumin 4.2 Lipase 21 Ethyl Alcohol 171 Influenza Type A (PCR) NEGATIVE Influenza Type B (PCR) NEGATIVE RSV RNA Qual (PCR) NEGATIVE SARS-CoV-2 RNA (RT-PCR) NEGATIVE <MEIR Grossman - Last Filed: 09/30/24 23:14> Assessment and Plan (1) Elevated liver enzymes: Status: Acute <MEIR Grossman - Last Filed: 09/30/24 23:14> Pt is a 59-year-old male with a PMH significant for HTN, COPD, ?CHF, opiate use disorder on Suboxone, and alcohol use disorder not on home meds who presents to the ED after pt was found by friends in a motel room sitting in a chair unresponsive. Pt will be admitted to the hospital for treatment and further evaluation of possible seizure activity in the setting of acute alcohol withdrawal. ?Seizure activity Pt found unresponsive with confusion and slurred speech upon awakening Likely secondary to alcohol withdrawal Patient daily drinker of unclear amount, last drink around noon today CT of head negative Patient given IV thiamine and started on phenobarb protocol in the ED Continue phenobarb protocol P.o. thiamine, multivitamin, folic acid, famotidine Addiction medicine consult Monitor on [place] Seizure precautions Monitor on telemetry If patient has repeat seizure episode will start on antiepileptics and get Neurology consult Opioid use disorder Reports sober for many years Continue Suboxone ?CHF Reports history of CHF 1 year ago Not verified by Cardiology on 08/26/2024 visit Not on home meds COPD Not in acute exacerbation Not on home inhalers Full Code Attending:?Dr. Phillips DVT Prophylaxis: Lovenox Pt will require a hospitalization of at least two nights for treatment of?possible seizure activity in the setting of acute alcohol withdrawal requiring phenobarb protocol as well as close cardiac and lab monitoring. <MEIR Grossman - Last Filed: 09/30/24 23:14> Pt is a 59-year-old male with a PMH significant for HTN, COPD, ?CHF, opiate use disorder on Suboxone, and alcohol use disorder not on home meds who presents to the ED after pt was found by friends in a motel room sitting in a chair unresponsive. Pt will be admitted to the hospital for treatment and further evaluation of possible seizure activity in the setting of acute alcohol withdrawal. Seizure activity Pt found unresponsive with confusion and slurred speech upon awakening Likely secondary to alcohol withdrawal Patient daily drinker of unclear amount, last drink around noon today CT of head negative Patient given IV thiamine and started on phenobarb protocol in the ED Continue phenobarb protocol P.o. thiamine, multivitamin, folic acid, famotidine Addiction medicine consult Monitor on [place] Seizure precautions Monitor on telemetry If patient has repeat seizure episode will start on antiepileptics and get Neurology consult Opioid use disorder Reports sober for many years Continue Suboxone ?CHF Reports history of CHF 1 year ago Not verified by Cardiology on 08/26/2024 visit Not on home meds COPD Not in acute exacerbation Not on home inhalers Full Code Attending:?Dr. Phillips DVT Prophylaxis: Lovenox Pt will require a hospitalization of at least two nights for treatment of?possible seizure activity in the setting of acute alcohol withdrawal requiring phenobarb protocol as well as close cardiac and lab monitoring. <Reina Phillips MD - Last Filed: 10/01/24 02:40> Quality Stroke Does the patient have a stroke diagnosis?: No <MEIR Grossman - Last Filed: 09/30/24 23:14> VTE Prior VTE?: No <MEIR Grossman - Last Filed: 09/30/24 23:14> VTE Risk Level:: Medical - moderate - high <MEIR Grossman - Last Filed: 09/30/24 23:14> VTE Device Contraindication: Treatment Not Indicated <MEIR Grossman - Last Filed: 09/30/24 23:14> VTE Drug Contraindication: N/A - Med Ordered <MEIR Grossman - Last Filed: 09/30/24 23:14>
[2024-09-30 22:15] VITALS: BP 124/77; PULSE 100; RESP 20; TEMP 36.7; O2SAT 95
[2024-09-30] MEDS: PHENobarbitaL sodium 130 MG/ML IM ONCE 274 MG IM (22:21)
[2024-09-30] MEDS: Acetaminophen 325 MG TABLET 650 MG PO (22:26)
[2024-09-30] MEDS: Enoxaparin Sodium 40 MG/0.4 ML SYRINGE SUBCUT (23:58)
[2024-10-01] LABS: Appearance Urine Clear; Color Urine Dark Yellow; Glucose Urine UA Negative (Negative); Leukocyte Esterase Urine Negative (Negative); Nitrite Urine Negative (Negative); Specific Gravity - Urine 1.025 (1.005-1.025); UMIC TRIGGER UACC YES; Urine Blood Moderate (2+) (Negative); Urine Ketones Trace mg/dL (Negative); Urine Protein 30 (1+) mg/dL (Neg-Trace)
[2024-10-01 00:04] LABS: Bacteria Urine None Seen (None Seen); Hyaline Casts Urine 0-2 /LPF (0-2); RBC Urine >20 /HPF (0-2); Squamous Epithelial Cell Urine 0-2 /HPF (0-2); WBC Urine 0-5 /HPF (0-5)
[2024-10-01 00:13] LABS: Amphetamine Screen Urine Not Detected (Not Detect); Barbiturates, Urine Not Detected (Not Detect); Benzodiazepines Screen Urine Not Detected (Not Detect); Buprenorphine Scr Positive (Not Detect); Cannabinoid Screen Urine Not Detected (Not Detect); Cocaine Screen Urine POSITIVE (Not Detect); Fentanyl, urine Not Detected (Not Detect); Methadone Screen, Urine Not Detected (Not Detect); Opiate Screen Urine Not Detected (Not Detect); Oxycodone Screen Urine Not Detected (Not Detect); Phencyclidine Screen Urine Not Detected (Not Detect)
[2024-10-01] MEDS: PHENobarbitaL sodium 130 MG/ML VIAL IM Q3Hx2 205 MG IM ×2 (03:06→06:53)
[2024-10-01 04:37] LABS: Anion Gap 15 (12-20); Blood Urea Nitrogen 15 mg/dL (9-16); Calcium 8.5 mg/dL (8.4-10.2); Carbon Dioxide 27 mmol/L (22-29); Chloride 106 mmol/L (96-108); Creatinine Clr Calc Pharmacy 94.9; Estimated Glomerular Filt Rate > 60; Glucose Random 118 mg/dL (60-115); Potassium 3.3 mmol/L (3.3-5.1); Sodium 145 mmol/L (135-145)
[2024-10-01 04:43] LABS: Basophils Percent Auto 0.7 % (0-2); Eosinophils Absolute Auto 0.1 X10*3/uL (0.0-0.4); Eosinophils Percent Auto 2.2 % (0-4); Hematocrit 35.8 % (42.0-52.0); Imm Gran Abs Auto 0.03 X10*3/uL (0.00-0.03); Imm Gran Pct Auto 0.5 % (0.0-0.4); Lymphocytes Absolute Auto 2.3 X10*3/uL (1.2-4.9); Lymphocytes Percent Auto 38.8 % (20-40); MANUAL DIFF FLAG SCAN; Mean Corpuscular Volume 96.5 fL (80.0-98.0); Mean Platelet Volume 9.4 fL (9.4-12.4); Monocytes Absolute Auto 0.4 X10*3/uL (0.1-1.2); Monocytes Percent Auto 6.4 % (2-11); Neutrophils Percent Auto 51.4 % (45-73); Platelet Count 142 X10*3/uL (160-400); Red Blood Count 3.71 X10*6/uL (4.60-5.80); SCAN SMEAR FLAG 1; White Blood Count 5.9 X10*3/uL (4.8-10.8)
[2024-10-01 04:51] VITALS: BP 157/94; PULSE 74; RESP 16; TEMP 36.6; O2SAT 95
[2024-10-01 04:57] LABS: Mean Corpuscular HGB Conc 33.5 g/dl (31.0-36.0); Mean Corpuscular Hemoglobin 32.3 pg (27.0-33.0)
[2024-10-01 05:07] LABS: SLIDE REVIEW VERIFIED
--- NOTE | 2024-10-01 08:34 | HO.PM.IMPN ---
Subjective Subjective Date of Service: 10/01/24 Interval History: light headed Physical Exam Vital Signs: Vital Signs: Last Vital Signs Temp 97.9 F 10/01/24 04:51 Pulse 74 10/01/24 04:51 Resp 16 10/01/24 04:51 BP 157/94 H 10/01/24 04:51 Pulse Ox 95 10/01/24 04:51 O2 Del Method Room Air 10/01/24 04:51 BMI result Body Mass Index 34.2 General: AO X 3, no acute distress Resp: CTA bilateral, no accessory muscles used CVS: S1,S2,RRR GI: soft, non tender, non distended Neuro: motor grossly intact, alert Psych: appropriate affect, appropriate insight Objective Data Active Medications Acetaminophen (Acetaminophen 325 Mg Tablet) 650 mg PO Q6H PRN PRN Reason: Pain, Mild (Pain Scale 1-3), fever or headache Calcium Carbonate (Calcium Carbonate 750 Mg Tab.Chew) 750 mg PO Q4H PRN PRN Reason: Heartburn Enoxaparin Sodium (Enoxaparin Sodium 40 Mg/0.4 Ml Syringe) 40 mg SUBCUT Q24H [facility] Last Admin: 09/30/24 23:58 Dose: 40 mg Documented By: RICH Folic Acid (Folic Acid 1 Mg Tablet) 1 mg PO DAILY [facility] Magnesium Hydroxide (Milk Of Magnesia 30 Ml Oral.Susp) 30 ml PO DAILY PRN PRN Reason: Constipation Melatonin (Melatonin 3 Mg Tablet) 6 mg PO BEDTIME PRN PRN Reason: Insomnia Multivitamins/Vitamin C (Multivitamin Tablet) 1 tab PO DAILY [facility] Ondansetron HCl (Ondansetron Hcl 4 Mg/2 Ml Vial) 4 mg IVPUSH Q8H PRN PRN Reason: Nausea and Vomiting Pharmacy Consult (Consult Rx Etoh Phenob Im/Po) 1 each MISCELLANE ONCE PRN; Protocol PRN Reason: Consult order Phenobarbital (Phenobarbital 15 Mg Tablet) 45 mg PO BID [facility] Stop: 10/02/24 21:01 Phenobarbital (Phenobarbital 15 Mg Tablet) 15 mg PO BID [facility] Stop: 10/04/24 21:01 Phenobarbital (Phenobarbital 15 Mg Tablet) 15 mg PO DAILY [facility] Stop: 10/06/24 09:01 Phenobarbital Sodium (Phenobarbital Sodium 130 Mg/Ml Vial Im Q3hx2) 205 mg IM 0300,0600 [facility] Stop: 10/02/24 03:01 Last Admin: 10/01/24 06:53 Dose: 205 mg Documented By: CARLENE Sodium Chloride (0.9 % Sodium Chloride Flush 3 Ml Syringe) 3 ml IVFLUSH QSHIFT [facility] Last Admin: 10/01/24 00:00 Dose: 3 ml Documented By: RICH Thiamine HCl (Thiamine Hcl 100 Mg Tablet) 100 mg PO DAILY [facility] Labs 10/01/24 04:12 10/01/24 04:12 Labs: Laboratory Results - last 24 hr 09/30/24 09/30/24 10/01/24 19:46 23:53 04:12 MCV 98.0 96.5 MCH 36.1 H 32.3 MCHC 36.9 H 33.5 RDW 13.8 14.0 Plt Count 166 142 L MPV 9.8 9.4 Immature Gran % (Auto) 0.4 0.5 H Neut % (Auto) 55.9 51.4 Lymph % (Auto) 36.5 38.8 [place] % (Auto) 5.4 6.4 Eos % (Auto) 1.2 2.2 Baso % (Auto) 0.6 0.7 Lymph # (Auto) 2.5 2.3 [place] # (Auto) 0.4 0.4 Eos # (Auto) 0.1 0.1 Baso # (Auto) 0.0 0.0 Abs Immat Gran (auto) 0.03 0.03 Absolute Neuts (auto) 3.8 3.0 Absolute Nucleated RBC 0.000 0.000 Nucleated RBC % (auto) 0.0 0.0 Smear Tech's Comments VERIFIED Anion Gap 17 15 Estim Creat Clear Calc 85.2 94.9 Estimated GFR > 60 > 60 Random Glucose 116 H 118 H Calcium 8.5 8.5 Magnesium 1.8 Total Bilirubin 1.6 H Direct Bilirubin 0.7 H AST 377 H ALT 144 H Alkaline Phosphatase 51 Total Creatine Kinase 199 H Troponin I High Sens 5.2 Total Protein 7.2 Albumin 4.2 Lipase 21 Urine Color Dark Yellow Urine Appearance Clear Urine pH 7.0 Ur Specific [place] 1.025 Urine Protein 30 (1+) H Urine Glucose (UA) Negative Urine Ketones Trace Urine Blood Moderate (2+) H Urine Nitrite Negative Ur Leukocyte Esterase Negative Urine RBC >20 H Urine WBC 0-5 Ur Squamous Epith Cells 0-2 Urine Bacteria None Seen Hyaline Casts 0-2 Urine Opiates Screen Not Detected Ur Buprenorphine Scrn Positive H Ur Oxycodone Screen Not Detected Urine Methadone Screen Not Detected Urine Fentanyl Screen Not Detected Ur Barbiturates Screen Not Detected Ur Phencyclidine Scrn Not Detected Ur Amphetamines Screen Not Detected U Benzodiazepines Scrn Not Detected Urine Cocaine Screen POSITIVE H U Marijuana (THC) Screen Not Detected Ethyl Alcohol 171 Influenza Type A (PCR) NEGATIVE Influenza Type B (PCR) NEGATIVE RSV RNA Qual (PCR) NEGATIVE SARS-CoV-2 RNA (RT-PCR) NEGATIVE Assessment and Plan (1) Alcohol intoxication: Status: Acute Plan 59M PMH etoh dependence, opiate dependence, copd, htn presented with unresponsiveness Alcohol dependence with withdrawal seizure Phenobarbital, monitor CIWA Addiction eval Opiate dependence Suboxone COPD Stable, bronchodilators as needed Obesity Weight loss recommended DVT prophylaxis with Lovenox Full Code reason for continued hospitalization: Treating and monitoring withdrawal Quality Stroke Does the patient have a stroke diagnosis?: No VTE Prior VTE?: No VTE Risk Level:: Medical - moderate - high VTE Device Contraindication: Treatment Not Indicated VTE Drug Contraindication: N/A - Med Ordered
[2024-10-01 09:13] VITALS: BP 140/93; PULSE 83; RESP 16; O2SAT 95
[2024-10-01] MEDS: Thiamine HCL 100 MG TABLET PO (09:15)
[2024-10-01] MEDS: Folic Acid 1 MG TABLET PO (09:15)
[2024-10-01] MEDS: PHENobarbitaL 15 MG TABLET 45 MG PO ×2 (09:15→20:30)
[2024-10-01] MEDS: 0.9 % Sodium Chloride Flush 3 ML SYRINGE IVFLUSH ×4 (09:16→20:30)
--- NOTE | 2024-10-01 09:21 | PHA.MEDREC ---
Addendum entered by Torres Nuñez 10/01/24 09:25: reviewed Original Note: Pharmacy Consult ? Medication Reconciliation Pharmacy has completed the medication reconciliation. Spoke to patient to confirm med list.
[2024-10-01 10:49] VITALS: BP 139/77; PULSE 72; RESP 16; TEMP 36.1; O2SAT 95
--- NOTE | 2024-10-01 11:04 | MHC.RECOVRN ---
AUDIT-C Brief Intervention Pt had positive screen for unhealthy alcohol use on admission. Attempted to meet with pt to discuss alcohol use and offer resources, pt declined.
[2024-10-01] MEDS: Buprenorphine/Naloxone 8/2 mg FILM 1 FILM SUBLINGUAL ×2 (15:15→20:30)
[2024-10-01 15:33] VITALS: BP 134/83; PULSE 66; RESP 17; TEMP 36.4; O2SAT 95
[2024-10-01 19:16] VITALS: BP 142/84; PULSE 76; RESP 18; TEMP 36.3; O2SAT 94
[2024-10-01] MEDS: Enoxaparin Sodium 40 MG/0.4 ML SYRINGE SUBCUT (22:50)
[2024-10-02 03:31] VITALS: BP 122/82; PULSE 87; RESP 18; TEMP 37.4; O2SAT 96
[2024-10-02] MEDS: Acetaminophen 325 MG TABLET 650 MG PO (03:50)
[2024-10-02 06:32] LABS: Hematocrit 36.7 % (42.0-52.0); Hemoglobin 13.5 g/dl (14.0-18.0); Mean Corpuscular HGB Conc 36.8 g/dl (31.0-36.0); Mean Corpuscular Hemoglobin 35.8 pg (27.0-33.0); Mean Corpuscular Volume 97.3 fL (80.0-98.0); Mean Platelet Volume 10.2 fL (9.4-12.4); Platelet Count 136 X10*3/uL (160-400); Red Blood Count 3.77 X10*6/uL (4.60-5.80)
[2024-10-02 06:49] LABS: Alanine Aminotransferase 95 U/L (0-40); Albumin Level 3.7 g/dL (3.5-5.0); Alkaline Phosphatase 87 U/L (39-117); Anion Gap 12 (12-20); Aspartate Amino Transferase 189 U/L (5-37); Blood Urea Nitrogen 12 mg/dL (9-16); Calcium 8.5 mg/dL (8.4-10.2); Carbon Dioxide 26 mmol/L (22-29); Chloride 104 mmol/L (96-108); Estimated Glomerular Filt Rate > 60; Glucose Random 108 mg/dL (60-115); Magnesium 1.7 mg/dL (1.6-2.6); Potassium 3.3 mmol/L (3.3-5.1); Sodium 139 mmol/L (135-145); Total Protein 6.4 g/dL (6.5-8.0)
--- NOTE | 2024-10-02 07:58 | PM.DS ---
DS: Providers Provider Date of Service: 10/02/24 Date of admission: 09/30/24 22:32 Date of discharge: 10/02/24 Primary care physician: GRECIA Dorman Consults: 09/30/24 21:56 Addiction Medicine Routine Consulting Provider: Sherry Etienne Reason for consultation: alcohol use disorder DS: Diagnosis Discharge Diagnosis (1) Alcohol intoxication: Status: Acute DS: Summary Hospital Course Hospital Course: from initial hpi: 59-year-old male with a PMH significant for HTN, COPD, ?CHF, opiate use disorder on Suboxone, and alcohol use disorder not on home meds who presents to the ED after pt was found by friends in a motel room sitting in a chair unresponsive. Pt apparently eventually woke up and was confused with slurred speech. Multiple nips were also found near the patient. Patient is a rather poor and vague historian. States he was visiting friends when he ?felt a seizure? coming on. [place] very sweaty, though is unable to further elaborate on what other symptoms he experienced. Reports this has happened a few times in the past, though it is unclear exactly how long ago these were, possibly a few years ago. Patient reports he is currently experiencing a great deal anxiety, though otherwise feels fine without any acute medical complaints. Denies headache or acute vision changes. No auditory or visual hallucinations. Denies diaphoresis. No nausea, vomiting, abdominal pain. Denies chest pain/pressure, palpitations. No shortness a breath or difficulty breathing. Patient is a rather vague as to how much he drinks, though admits to drinking at least 7 nips daily for ?quite awhile?; last drink around noon today. Denies history of alcohol withdrawal in the past. Has not seen anyone from Neurology for possible seizure disorder. In the ED pt was tachycardic up to 103 with vitals otherwise WNL and stable Labs were significant for T bili 1.6, AST 377, ALT 144, and ethyl alcohol level 171. No leukocytosis. Stable H&H. No significant electrolyte abnormalities. Renal function baseline. Troponin WNL. Magnesium WNL. Tested negative for flu, COVID, RSV. CTA of head negative for acute intracranial process. EKG demonstrated normal sinus rhythm with RBBB. Pt was treated with thiamine 200 mg IV, acetaminophen, and started on phenobarb protocol. Pt will be admitted to the hospital for treatment and further evaluation of possible seizure activity in the setting of acute alcohol withdrawal. hospital course: Patient was admitted for alcohol dependence with withdrawal seizure. Was treated phenobarbital and CIWA improved. Patient is feeling back to his baseline. For opiate dependence was continued on Suboxone. For COPD remained stable. For obesity weight loss recommended. Also noted to have mild acute alcoholic hepatitis. Recommendation to avoid alcohol. Time Attestation Discharge Coordination Time (in mins): 32 Quality: Safe Use of Opioids Does Pt have an Active Cancer Diagnosis on the Problem List?: No Quality: Stroke Does the patient have a stroke diagnosis?: No Physical Exam Vital Signs: Vital Signs: Last Vital Signs Temp 99.4 F 10/02/24 03:31 Pulse 87 10/02/24 03:31 Resp 18 10/02/24 03:31 BP 122/82 10/02/24 03:31 Pulse Ox 96 10/02/24 03:31 O2 Del Method Room Air 10/02/24 03:31 BMI result Body Mass Index 34.2 General: AO X 3, no acute distress Resp: CTA bilateral, no accessory muscles used CVS: S1,S2,RRR GI: soft, non tender, non distended Neuro: motor grossly intact, alert Psych: appropriate affect, appropriate insight DS: Data Data Completed and Pending Labs on day of discharge: Laboratory Results - last 24 hr 10/02/24 05:33 WBC 6.0 RBC 3.77 L Hgb 13.5 L Hct 36.7 L MCV 97.3 MCH 35.8 H MCHC 36.8 H RDW 14.0 Plt Count 136 L MPV 10.2 Absolute Nucleated RBC 0.000 Nucleated RBC % (auto) 0.0 Sodium 139 Potassium 3.3 Chloride 104 Carbon Dioxide 26 Anion Gap 12 BUN 12 Creatinine 0.78 Estim Creat Clear Calc 118.0 Estimated GFR > 60 Random Glucose 108 Calcium 8.5 Magnesium 1.7 Total Bilirubin 2.0 H Direct Bilirubin 1.0 H AST 189 H ALT 95 H Alkaline Phosphatase 87 Total Protein 6.4 L Albumin 3.7 Discharge Plan Discharge Anticipated Discharge Date/Time: 10/02/24 07:57 Patient Disposition: Home, Self-Care Discharge Diagnosis: etoh withdrawal, hepatitis, seizure Referrals: Lana Couch FNP [Primary Care Provider] - 1 Week Discharge Medications: Continued triamcinolone acetonide 0.1 % cream 1 appl topical BID buprenorphine-naloxone [Suboxone] 8-2 mg film 1 film sublingual TID ibuprofen 800 mg tablet 800 mg PO BID PRN (Reason: pain) Discharge Orders: Discharge Order (Routine); Ordered 10/02/24 Ordered By: Jani Auguste Diet: Advance to usual diet Activity on Discharge: no driving Stand Alone Forms: Patient Portal Discharge page Print Language: Estonian Care Plan Goals: recovery Health Concerns: etoh dependence, withdrawal Plan of Treatment: avoid etoh Assessment: see above
[2024-10-02 08:00] VITALS: BP 151/94; PULSE 73; RESP 18; TEMP 36.3; O2SAT 98
[2024-10-02 08:14] VITALS: BP 107/65; PULSE 98; RESP 16; TEMP 36.8; O2SAT 97
[2024-10-02] MEDS: Multivitamin TABLET 1 TAB PO (08:16)
[2024-10-02] MEDS: Thiamine HCL 100 MG TABLET PO (08:16)
[2024-10-02] MEDS: Folic Acid 1 MG TABLET PO (08:16)
[2024-10-02] MEDS: Buprenorphine/Naloxone 8/2 mg FILM 1 FILM SUBLINGUAL (08:17)
[2024-10-02] MEDS: PHENobarbitaL 15 MG TABLET 45 MG PO (08:17)
[2024-10-02] MEDS: 0.9 % Sodium Chloride Flush 3 ML SYRINGE IVFLUSH (08:18)
== END 2024-10-02 11:46 | disposition home or self-care (01) | DRG 773 ==
LOC: HO.ED 22:23 → HO.EDOVER 22:42 → HO.S3 10-01 09:29
PROVIDERS: Admitting Provider Student in an Organized Health Care Education/Training Program; Emergency Provider Emergency Medicine; PCP Registered Nurse; Visit Provider Internal Medicine
DX: F10.239 Alcohol dependence with withdrawal, unspecified (principal); F11.20 Opioid dependence, uncomplicated; F10.229 Alcohol dependence with intoxication, unspecified; Z20.822 Contact with and (suspected) exposure to COVID-19; Y90.6 Blood alcohol level of 120-199 mg/100 ml; Z87.891 Personal history of nicotine dependence; Z79.899 Other long term (current) drug therapy
CPT/HCPCS: 0241U; 36415; 70450; 80048; 80076; 80307; 81001; 81003; 82550; 83690; 83735; 84484; 85025; 85027; 93005; 99285; J1650; J2560; J3411

== ENCOUNTER → 2024-09-30 17:44 | Outpatient (BNV) | payer MEDICAID, SELFPAY | PROVIDERS: Admitting Provider Student in an Organized Health Care Education/Training Program; Emergency Provider Emergency Medicine; PCP Registered Nurse; Visit Provider Internal Medicine | DX: R94.31 Abnormal electrocardiogram [ECG] [EKG] (principal) | CPT/HCPCS: 93010 ==

== ENCOUNTER → 2024-09-30 22:32 | Outpatient (BNV) | payer MEDICAID, SELFPAY | PROVIDERS: Admitting Provider Student in an Organized Health Care Education/Training Program; Emergency Provider Emergency Medicine; PCP Registered Nurse; Visit Provider Student in an Organized Health Care Education/Training Program | DX: F10.929 Alcohol use, unspecified with intoxication, unspecified (principal) | CPT/HCPCS: 99239 ==

== ENCOUNTER → 2024-11-25 11:49 | Outpatient (REF) | payer MEDICAID, SELFPAY ==
--- NOTE | 2024-11-25 11:52 | CA_ITS ---
Acquisition Time: 2024-11-25 11:58:14 Total Exercise Time: 00:07:00 Test Indications: Abnormal ECG,Pre-Op Evaluation Medications: GABAPENTIN SUBOXONE Protocol: SILVA Max HR: 136 BPM 84% of Pred: 161 BPM Max BP: 140/88 mmHG Max Work Load: 6.3 METS Exercise Stress Test with exercise 7 minutes of Silva Protocol, held at Stage 1 due to ankle pain, able to increase speed to 2.0mph adn incline to 14%, achieving 83% MPHR, with no reports of anginal symptoms, with isolated PACs, with normotensive response to exercise. Without EKG changes meeting criteria for ischemia. Echo images obtained by tech at rest and post peak exercise. Definity contrast utilized. Test reviewed with Dr. Tang. Referred By: Vaughn Jacobo Electronically Signed By: Jeremiah Huff
== END ==
LOC: HO.CARD 11:49
PROVIDERS: PCP Registered Nurse; Visit Provider Internal Medicine
DX: I45.2 Bifascicular block (principal)
CPT/HCPCS: 93350; Q9957

== ENCOUNTER → 2024-11-25 11:52 | Outpatient (BNV) | payer MEDICAID, SELFPAY | PROVIDERS: PCP Registered Nurse | DX: I51.89 Other ill-defined heart diseases (principal); I49.1 Atrial premature depolarization | CPT/HCPCS: 93016; 93018; 93350; 93352 ==

== ENCOUNTER 2025-01-21 11:43 | Outpatient (REF) | payer MEDICAID, SELFPAY ==
[2025-01-24 10:59] LABS: Lorazepam GCMS Urine NEGATIVE; Nordiazepam, GCMS Urine NEGATIVE; Oxazepam, GCMS Urine 124
[2025-01-24 11:00] LABS: Alphahydroxymidazolam,GCMS Ur NEGATIVE; Alphahydroxytriazolam, GCMS Ur NEGATIVE; Alprazolam, GCMS Urine NEGATIVE; Aminoclonazepam, GCMS Urine NEGATIVE; Flurazepam Metabolite,GCMS Ur NEGATIVE; Temazepam, GCMS Urine NEGATIVE
== END 2025-01-21 11:44 | disposition home or self-care (01) ==
LOC: HO.HHCLNP 11:43
PROVIDERS: Visit Provider Emergency Medicine
DX: F11.20 Opioid dependence, uncomplicated (principal)
CPT/HCPCS: 80346

== ENCOUNTER 2025-02-23 10:26 | Outpatient (REF) | payer MEDICAID, SELFPAY ==
--- OUTSIDE RECORDS SUMMARY | 2025-02-23 11:27 | XMS_ITS | Encounter Summary ---
Author Organization [employer] Address [address] [facility] [address] [place] [address] Care Team Providers Care Automatic Serging Machine Operator Name Role Phone Lana Couch Primary Care Provider [phone] Reason for Visit * Reason Onset Date Comments Verbal Orders 02/04/2023 Encounter Details Date Type Department Care Team ([facility] st Contact Info) Description 02/04/2023 Telephone [facility] MEDICINE [address] [place] [address] Lana Couch FNP [address] [place] [address] Verbal Orders Social History Tobacco Use Types Packs/Day Years Used Date Smoking Tobacco: Every Day Cigarettes Passive Smoke Exposure: Current Smokeless Tobacco: Never Alcohol Use Standard Drinks/Week Comments Yes 0 (1 standard drink = 0.6 oz pur e alcohol) Sex and Gender Information Value Date Recorded Sex Assigned at Male 08/12/2022 10:37 AM EDT Legal Sex Male 10:37 AM EDT Gender Identity Male 08/12/2022 10:37 AM EDT Sexual Orientation Straight 08/12/2022 10 :37 AM EDT COVID-19 Exposure Response Date Recorded In the last 10 days, have yo u been in contact with someone who was confirmed or suspected to have Coronavirus/COVID-19? No / Unsure 01/28/2023 2:04 PM EDT documented as of this encounter Miscellaneous Notes * Telephone Encounter - Tito Worthington - 02/04/2023 11:43 AM EDT Tc from [facility] requesting some Verbal orders regarding pt Please contact at [phone] documented in this encounter Plan of Treatment Upcoming Encounters Date Type Department Care Team (Late st Contact Info) Description 03/14/2025 1:15 PM EDT Office Visit [facility] CHC MED & PEDS [address] [place], [place] [phone] Lana Couch FNP [address] [place], [place] 03/18/2025 10:00 AM EDT Office Visit [facility] MEDICINE [address] [place] [address] Anil Metzger MD [address] [place] [address] 03/25/2025 2:30 PM EDT Office Visit [facility] MEDICINE [address] [place] [address] Joe De Leon MD [address] [place] [address] documented as of this encounter Visit Diagnoses Not on filedocumented in this encounter Care Teams Automatic Serging Machine Operator Relationship Specialty Start Date End Date Lana Couch FNP [address] [place] [id number] PCP - General Family Medicine 01/28/23 documented as of this encounter
--- OUTSIDE RECORDS SUMMARY | 2025-02-23 11:27 | XMS_ITS | Encounter Summary ---
Author Organization [employer] Address [address] [facility] [address] [place] [address] Care Team Providers Care General Foreman Name Role Phone Lana Couch Primary Care Provider [phone] Encounter Details Date Type Department Care Team (Late st Contact Info) Description 03/24/2023 Orders Only [facility] MEDICINE [address] [place] [address] Lana Couch FNP [address] [place] [address] Social History Tobacco Use Types Packs/Day Years [...] Orientation Straight 08/12/2022 10 :37 AM EDT documented as of this encounter Plan of Treatment Upcoming Encounters Date Type Department Care Team (Late st Contact Info) Description 03/14/2025 1:15 PM EDT Office Visit [facility] CHC MED & PEDS [address] [place] [address] Lana Couch FNP [address] [place] [address] 03/18/2025 10:00 AM EDT Office Visit [facility] MEDICINE [address] [place] [address] Anil Metzger MD [address] [place] [address] 03/25/2025 2:30 PM EDT Office Visit [facility] MEDICINE [address] [place] [address] Joe De Leon MD [address] [place] [address] documented as of this encounter Visit Diagnoses Not on filedocumented in this encounter Care Teams General Foreman Relationship Specialty Start Date End Date Lana Couch FNP [address] [place] [address] PCP - General Family Medicine 01/28/23 documented as of this encounter
--- OUTSIDE RECORDS SUMMARY | 2025-02-23 11:27 | XMS_ITS | Encounter Summary ---
Author Organization [employer] Address [address] [facility] [address]t [place] [address] Care Team Providers Care Plant Propagator Name Role Phone Lana Couch GRECIA Primary Care Provider [phone] Reason for Visit * Reason Onset Date Comments Med Refill 12/27/2024 Encounter Details Date Type Department Care Team (Late st Contact Info) Description 12/27/2024 Refill [facility] MEDICINE [address] [place] [address] Macie Mcgregor RN Uncomplicated opioid dependence (CMS/HCC) Social History Tobacco Use Types Packs/Day Years Used Date Smoking Tobacco: Every Day Cigarettes Passive Smoke Exposure: Current Smokeless Tobacco: Never Alcohol Use Standard Drinks/Week Comments Yes 0 (1 standard drink = 0.6 oz pur e alcohol) Depression Answer Date Recorded Patient Health Questionnaire-9 Score 0 05/29/2023 Housing Stability Answer Date Recorded What is your housing situation today? I do not have housing (Staying with others, in a hotel, in a group home, living outside on the street, on a beach, in a car, or in a park 09/24/[address] you li ve. Do you have problems with any of the following? None of the above 09/24/2023 Food Insecurity Answer Date Recorded Within the past 12 months, y ou worried that your food would run out before you got money to buy more: Never True 08/14/2023 Within the past 12 months,th e food you bought just didn't last and you didn't have enough money to get more: Never True 11/2022 Transportation Answer Date Recorded In the past 12 months, has l ack of transportation kept you from medical appts, meetings, work or from getting things needed for daily living? Yes, it has kept me from medical appointments or getting medications. 09/24/2023 Utilities Answer Date Recorded In the past 12 months, has t he electric, gas, oil or water [employer] threatened to shut off services in your home? No 08/14/2023 Depression Answer Date Recorded Patient Health Questionnaire-2 Score 0 05/29/2023 Sex and Gender Information Value Date Recorded Sex Assigned at Male 08/12/2022 10:37 AM EDT Legal Sex Male 10:37 AM EDT Gender Identity Male 08/12/2022 10:37 AM EDT Sexual Orientation Straight 08/12/2022 10 :37 AM EDT documented as of this encounter Plan of Treatment Upcoming Encounters Date Type Department Care Team (Late st Contact Info) Description 03/14/2025 1:15 PM EDT Office Visit [facility] MED & PEDS [address] [place] [address] Lana Couch FNP [address] [place] [address] 03/18/2025 10:00 AM EDT Office Visit [facility] MEDICINE [address] [place] [address] Anil Metzger MD [address] [place] [address] 03/25/2025 2:30 PM EDT Office Visit [facility]INE [address] [place] [phone] Joe De Leon MD [address] [place] [address] documented as of this encounter Visit Diagnoses Diagnosis Uncomplicated opioid dependence (CMS/HCC) documented in this encounter Additional Health Concerns Assessment Noted Time PHQ-9 Depression Total Score: 0 05/29/20 11:15 AM EDT documented as of this encounter Care Teams Plant Propagator Relationship Specialty Start Date End Date Lana Couch FNP [address] [place] [address] PCP - General Family Medicine 01/28/23 documented as of this encounter
--- OUTSIDE RECORDS SUMMARY | 2025-02-23 11:27 | XMS_ITS | Encounter Summary ---
Author Organization [employer] Address [address] [facility] [address] [place] [address] Care Team Providers Care Hand Driller Name Role Phone Lana Couch Primary Care Provider [phone] Reason for Visit * Reason Onset Date Comments Pt1 12/31/2022 Encounter Details Date Type Department Care Team ([facility] st Contact Info) Description 12/31/2022 Telephone [facility] MEDICINE [address] [place] [address] Lana Couch FNP [address] [place] [address] Pt1 Social History Tobacco Use Types Packs/Day Years Used Date Smoking Tobacco: Every Day Cigarettes Passive Smoke Exposure: Current Smokeless Tobacco: Never Sex and Gender Information Value Date Recorded [...] suspected to have Coronavirus/COVID-19? No / Unsure 12/31/2022 1:48 PM EDT documented as of this encounter Miscellaneous Notes * Telephone Encounter - Tito Worthington - 12/31/2022 10:13 AM EDT Tc from pt requesting a PT1 PT1 Name of facility: [facility] Specialty: Appt Location: [address] [place] [address] Date: n/a Time: n/a fax: n/a Phone: n/a wheelchair: n/a Truck Trailer Mechanic: n/a documented in this encounter Plan of Treatment Upcoming Encounters Date Type Department Care Team (Late st Contact Info) Description 03/14/2025 1:15 PM EDT Office Visit [facility] CHC MED & PEDS [address] [place] [address] Lana Couch FNP [address] [place] [address] 03/18/2025 10:00 AM EDT Office Visit [facility] MEDICINE [address] [place] [address] Anil Metzger MD [address] [place] [address] 03/25/2025 2:30 PM EDT Office Visit [facility] [address] [place] [address] Joe De Leon MD [address] [place] [address] documented as of this encounter Visit Diagnoses Diagnosis Opioid abuse (CMS/[facility]) Nondependent opioid abuse, unspecified documented in this encounter Care Teams Hand Driller Relationship Specialty Start Date End Date Lana Couch FNP [address] [place] [phone] PCP - General Family Medicine 01/28/23 documented as of this encounter
--- OUTSIDE RECORDS SUMMARY | 2025-02-23 11:27 | XMS_ITS | Encounter Summary ---
Author Organization [employer] Address [address] [facility] [address] [place] [address] Care Team Providers Care Telegraphic Service Dispatcher Name Role Phone Lana Couch GRECIA Primary Care Provider [phone] Encounter Details Date Type Department Care Team (Late st Contact Info) Description 12/29/2024 Telephone [facility] MEDICINE [address] [place] [address] Macie Mcgregor RN Social History Tobacco Use Types Packs/Day Years [...] with others, in a hotel, in a mcc, living outside on the street, on a [...] t he electric, gas, oil or water company threatened to shut off services in your home? No 08/14/2023 Depression Answer Date Recorded Patient Health Questionnaire-2 Score 0 05/29/2023 Sex and Gender Information Value Date Recorded Sex Assigned at Male 08/12/2022 10:37 AM EDT Legal Sex Male 10:37 AM EDT Gender Identity Male 08/12/2022 10:37 AM EDT Sexual Orientation Straight 08/12/2022 10 :37 AM EDT documented as of this encounter Miscellaneous Notes * Telephone Encounter - GRECIA Dorman - 12/30/2024 6:47 PM EDT I am so sorry to hear about the loss of his . Sending my condolences. Unfortunately, I am unable to prescribe him the Ativan. However, if he is interested in speaking with one of our clinicians regarding grief, I am sure we could set that up HARRIETT. Thank you. * Telephone Encounter - Macie Mcgregor RN - 12/29/2024 3:11 PM EDT Ananda's . He is extremely anxious, and is asking for Ativan. He said he hasn't slept since she on Friday. I told him I would reach out to pcp and the team to see if this would be appropriate. documented in this encounter Plan of Treatment Upcoming Encounters Date Type Department Care Team (Late st Contact Info) Description 03/14/2025 1:15 PM EDT Office Visit [facility] CHC MED & PEDS [address] [place] [address] Lana Couch FNP [address] [place] [address] 03/18/2025 10:00 AM EDT Office Visit [facility] MEDICINE [address] [place] [address] Anil Metzger MD [address] [place] [address] 03/25/2025 2:30 PM EDT Office Visit [facility] MEDICINE [address] [place] [address] Joe De Leon MD [address] [place] [address] documented as of this encounter Visit Diagnoses Not on filedocumented in this encounter Additional Health Concerns Assessment Noted Time PHQ-9 Depression Total Score: 0 05/29/20 11:15 AM EDT documented as of this encounter Care Teams Telegraphic Service Dispatcher Relationship Specialty Start Date End Date Lana Couch FNP [address] [place] [address] PCP - General Family Medicine 01/28/23 documented as of this encounter
--- OUTSIDE RECORDS SUMMARY | 2025-02-23 11:27 | XMS_ITS | Encounter Summary ---
Author Organization [employer] Address 75 [facility] 7t [place] [address] Care Team Providers Care Crossing Supervisor Name Role Phone Lana Couch Primary Care Provider [phone] Reason for Visit * Reason Onset Date Comments Pre op 01/28/2025 Encounter Details Date Type Department Care Team (Late st Contact Info) Description 01/28/2025 Telephone [facility] MEDICINE [address] [place] [address] Lana Couch FNP [address] [place], [place] [phone] Pre op Social History Tobacco Use Types Packs/Day Years [...] with others, in a hotel, in a long-term, living outside on the street, on a [...] encounter Miscellaneous Notes * Telephone Encounter - Sharon Zheng - 02/03/2025 9:23 AM EDT Facility agreed to pre op appointment on 02/23/25 with Jose. Appointment reminder letter mailed. * Telephone Encounter - Javed Samson - 01/28/2025 10:26 AM EDT Date of Surgery: 03/16/25 Surgical procedure being done: Right Rotator Cuff repair Type of anesthesia: general anesthesia Lab needed: Yes EKG: Yes Surgeon's name: Dr.Noah Barcenas Facility name: [facility] Surgeon's office number: [phone] Surgeon's office fax number: [phone] Contact name (person you spoke with): Leann Last office note from surgeon requested: Yes Send Message to Sharon Zheng and Ricardo Javier Pt was Cleared by [facility] Cardiology. Contact Leann at [phone] documented in this encounter Plan of Treatment Upcoming Encounters Date Type Department Care Team (Late st Contact Info) Description 03/14/2025 1:15 PM EDT Office Visit [facility] MED & PEDS [address] [place] [address] Lana Couch, GRECIA [address] [place] [address] 03/18/2025 10:00 AM EDT Office Visit [facility] MEDICINE [address] [place] [address] Anil Metzger MD [address] [place], [place] [phone] 03/25/2025 2:30 PM EDT Office Visit [facility] MEDICINE [address] [place], [place] [phone] Joe De Leon MD [address] [place] [address] documented as of this encounter Visit Diagnoses Not on filedocumented in this encounter Additional Health Concerns Assessment Noted Time PHQ-9 Depression Total Score: 0 05/29/20 11:15 AM EDT documented as of this encounter Care Teams Crossing Supervisor Relationship Specialty Start Date End Date Lana Couch FNP [address] [place] [phone] PCP - General Family Medicine 01/28/23 documented as of this encounter
--- OUTSIDE RECORDS SUMMARY | 2025-02-23 11:27 | XMS_ITS | Encounter Summary ---
Author Organization [employer] Address 75 [facility] 7t [place] [address] Care Team Providers Care Guest Service Aide Name Role Phone Lana Couch Primary Care Provider [phone] Reason for Visit * Reason Onset Date Comments Pt1 05/16/2023 Encounter Details Date Type Department Care Team (Late st Contact Info) Description 05/16/2023 Telephone [facility] MEDICINE [address] [place] [address] Lana Couch FNP [address] [place] [address] Pt1 Social History Tobacco Use Types Packs/Day [...] suspected to have Coronavirus/COVID-19? No / Unsure 04/21/2023 9:20 AM EDT documented as of this encounter Miscellaneous Notes * Telephone Encounter - Hafsa Coello - 05/16/2023 2:00 PM EDT Fire Information Officer left message for pt stating to call [facility] today to schedule pickup for 05/20/23. Per [facility] policy you must call at least 3 days in advance to schedule transportation. * Telephone Encounter - Hafsa Coello - 05/16/2023 1:58 PM EDT Patient will recieve approval / denial letter via mail. PT-1 Request [id number] [address] [address] * Telephone Encounter - Carly Brown - 05/16/2023 1:02 PM EDT Tc from pt requesting a pt1 Location: [address] [place] [address] Specialty: Urology Date&Time: 05/20/23 Belt Builder Helper: no * Telephone Encounter - Carly Brown - 05/16/2023 12:52 PM EDT Tc from pt requesting a pt1 Location: [address] [place] [address] Specialty: Urology Date&Time: 05/20/23 Belt Builder Helper: no documented in this encounter Plan of Treatment Upcoming Encounters Date Type Department Care Team (Late st Contact Info) Description 03/14/2025 1:15 PM EDT Office Visit [facility] CHC MED & PEDS [address] [place] [address] Lana Couch FNP [address] [place] [address] 03/18/2025 10:00 AM EDT Office Visit [facility] MEDICINE [address] [place] [address] Anil Metzger MD [address] [place] [address] 03/25/2025 2:30 PM EDT Office Visit [address] [address] Joe De Leon MD 230 [place] [address] documented as of this encounter Visit Diagnoses Not on filedocumented in this encounter Care Teams Guest Service Aide Relationship Specialty Start Date End Date Lana Couch FNP [address] [place] [address] PCP - General Family Medicine 01/28/23 documented as of this encounter
--- OUTSIDE RECORDS SUMMARY | 2025-02-23 11:27 | XMS_ITS | Encounter Summary ---
Author Organization [employer] Address 75 [facility] 7t [place] [address] Care Team Providers Care Greeting Card Maker Name Role Phone Lana Couch Primary Care Provider [phone] Reason for Visit * Reason Onset Date Comments Nurse Triage 12/15/2023 Encounter Details Date Type Department Care Team ([facility] st Contact Info) Description 12/15/2023 Telephone [facility] CHC MED & PEDS [address] [place], [place] [phone] Lana Couch FNP [address] [place] [address] Nurse Triage Social History Tobacco Use Types Packs/Day Years [...] with others, in a hotel, in a care home, living outside on the street, on [...] encounter Miscellaneous Notes * Telephone Encounter - Wing Todd RN - 12/31/2023 10:05 AM EDT Tc to pt regarding pulmonary nodule concern. Pt was frustrated and requested MRI for right shoulderdue to falling at a gas station and saying in regards to his shoulder that he, tore it . Scheduledappt with Dr. Cooney for 01/04 at 3:30 pm to discuss pulmonary nodules along with the imaging that may be needed and the shoulder MRI question. Pt verbalizes understanding and agreement with plan. * Telephone Encounter - GRECIA Dorman - 12/31/2023 7:38 AM EDT Reviewed [facility] ED notes, there was concern for possible pulmonary nodules. Pt will require ED follow up visit to discuss next steps for imaging regarding lungs and shoulder. Thank you. * Telephone Encounter - Vee Lovelace RN - 12/19/2023 1:24 PM EST [facility] ED notes received and scanned into chart. Pt informed of need to be seen prior to MRI being ordered. Pt agrees to sick appt next week. * Telephone Encounter - GRECIA Dorman - 12/19/2023 12:02 PM EST Please call pt to let him know that we are still waiting on ED note from [facility]. If sufficient documentation, insurance may approve MRI w/o a visit. However, possible that he will still need to be seen here first for eval. If he would like to expedite eval, I would recommend that he be scheduled for avisit for further eval. Thank you! * Telephone Encounter - Vee Lovelace RN - 12/19/2023 9:36 AM EST ED notes not yet received. Faxed ED request to [facility] again and will scan into chart once it arrives for PCP review. * Telephone Encounter - Yara Geller - 12/17/2023 2:51 PM EST Tc from pt requesting MR order for shoulder pain. * Telephone Encounter - GRECIA Dorman - 12/16/2023 9:05 PM EST I will need some degree of documentation in order for further imaging to be ordered/approved through insurance. If [facility] ED note sufficient, I may be able to place order directly. [facility] * Telephone Encounter - Ericka Molina LPN - 12/15/2023 2:53 PM EST Please obtain notes from [facility] ED date 12/13/23. No appt scheduled at this time patient reports xray was completed at time of visit. * Telephone Encounter - Ericka Molina LPN - 12/15/2023 2:52 PM EST Triage call returned to patient for reported shoulder pain. Patient reports that he fell 2 [facility] in [facility] ED and had xray completed. is in a sling and reports i know my body i did not break anything i tore something in my shoulder . No ED report on file at time of call. No PCPor Team appts available. Patient does not want any further advice and request only a referral for MRI. Unable to complete triage at time of call. [facility] ED records requested. No appts booked as patient declines evaluation. Team tasked to follow with PCP and patient. Protocol Used: Shoulder Injury (Adult) Protocol-Based Disposition: See in Office or Video Visit Today Override (Final) Disposition: Discuss with PCP and Callback by Nurse Today Override Reason: Caller refused suggested disposition Override Notes: Patient wants referral for MRI only. Please see note. Positive Triage Question: * Severe pain (e.g., excruciating) * All higher-acuity triage questions were negative * Telephone Encounter - Tito Worthington - 12/15/2023 2:32 PM EST Symptom: Shoulder Pain - Not From Injury Outcome: Schedule an urgent appointment (within 1 hour) or talk to a nurse or provider soon Reason: Severe pain now The caller accepted this outcome Please contact pt @ [phone] documented in this encounter Plan of Treatment Upcoming Encounters Date Type Department Care Team (Late st Contact Info) Description 03/14/2025 1:15 PM EDT Office Visit [facility] CHC MED & PEDS [address] [place] [address] Lana Couch FNP [address] [place] [address] 03/18/2025 10:00 AM EDT Office Visit [facility] MEDICINE [address] [place] [address] Anil Metzger MD [address] [place] [address] 03/25/2025 2:30 PM EDT Office Visit [facility] MEDICINE [address] [place] [address] Joe De Leon MD [address] [place] [address] documented as of this encounter Visit Diagnoses Not on filedocumented in this encounter Additional Health Concerns Assessment Noted Time PHQ-9 Depression Total Score: 0 05/29/20 11:15 AM EDT documented as of this encounter Care Teams Greeting Card Maker Relationship Specialty Start Date End Date Lana Couch FNP [address] [place] [address] PCP - General Family Medicine 01/28/23 documented as of this encounter
--- OUTSIDE RECORDS SUMMARY | 2025-02-23 11:27 | XMS_ITS | Encounter Summary ---
Author Organization [employer] Address 75 [facility] 7t [place] [address] Care Team Providers Care Oracle Agile Plm Consultant Name Role Phone Lana Couch Primary Care Provider [phone] Encounter Details Date Type Department Care Team (Late st Contact Info) Description 02/07/2023 Orders Only [facility] MEDICINE [address] [place], [place] [phone] Ying Rudolph RN Social History Tobacco Use Types Packs/Day [...] PM EDT documented as of this encounter Plan of Treatment Upcoming Encounters Date Type Department Care Team (Late st Contact Info) Description 03/14/2025 1:15 PM EDT Office Visit [facility] CHC MED & PEDS [address] [place] [address] Lana Couch FNP [address] [place], [place] [phone] 03/18/2025 10:00 AM EDT Office Visit [facility] MEDICINE [address] [place], [place] [phone] Anil Metzger MD [address] [place], [place] [phone] 03/25/2025 2:30 PM EDT Office Visit [facility] MEDICINE [address] [place], [place] [phone] Joe De Leon MD [address] [place], [place] [phone] documented as of this encounter Visit Diagnoses Not on filedocumented in this encounter Care Teams [employer] Pl[employer] Consultant Relationship Specialty Start Date End Date Lana Couch FNP [address] [place] [phone] PCP - General Family Medicine 01/28/23 documented as of this encounter
--- OUTSIDE RECORDS SUMMARY | 2025-02-23 11:27 | XMS_ITS | Encounter Summary ---
Author Organization [employer] Address 75 [facility] 7t [place] [address] Care Team Providers Care Detail Supervisor Name Role Phone Lana Couch Primary Care Provider [phone] Reason for Visit * Reason Onset Date Comments Letter for School/Work 05/05/2023 Encounter Details Date Type Department Care Team ([facility] st Contact Info) Description 05/05/2023 Telephone [facility] MEDICINE [address] [place] [address] Lana Couch FNP [address] [place] [address] Letter for School/Work Social History Tobacco Use Types Packs/Day Years [...] * Telephone Encounter - Tito Worthington - 05/05/2023 10:28 AM EDT Tc from pt requesting a letter for work indicating all pt medical conditions. Please contact pt at [phone] documented in this encounter Plan of Treatment Upcoming Encounters Date Type Department Care Team (Late st Contact Info) Description 03/14/2025 1:15 PM EDT Office Visit [facility] CHC MED & PEDS [address] [place], [place] [phone] Lana Couch FNP [address] [place] [address] 03/18/2025 10:00 AM EDT Office Visit [facility] MEDICINE [address] [place] [address] Anil Metzger MD 230 [place] [address] 03/25/2025 2:30 PM EDT Office Visit [address] [address] Joe De Leon MD [address] [place] [address] documented as of this encounter Visit Diagnoses Not on filedocumented in this encounter Care Teams Detail Supervisor Relationship Specialty Start Date End Date Lana Couch FNP [address] [place] [address] PCP - General Family Medicine 01/28/23 documented as of this encounter
--- OUTSIDE RECORDS SUMMARY | 2025-02-23 11:27 | XMS_ITS | Encounter Summary ---
Author Organization [employer] Address 75 [facility] 7t [place] [address] Care Team Providers Care Staff Nurse Midwife Name Role Phone Lana Couch Primary Care Provider [phone] Reason for Visit * Reason Onset Date Comments Call Back Request 10/09/2023 Encounter Details Date Type Department Care Team ([facility] st Contact Info) Description 10/09/2023 Telephone [facility] CHC MED & PEDS [address] [place], [place] [phone] Lana Couch FNP [address] [place] [address] Call Back Request Social History Tobacco Use Types Packs/Day Years [...] with others, in a hotel, in a custodial, living outside on the street, on a [...] encounter Miscellaneous Notes * Telephone Encounter - Heath Cole - 10/09/2023 4:21 PM EST Tc from pt calling in regards regards to message below. Please contact pt at [phone]. CHW Dori Braun placed outbound call to patient for follow up call on SDOH needs. No answer at this time. CHW LVM introducing herself from [facility] CM Department. Requested call back. CHW reinforced direct contact information or CM for any additional questions or concerns and extended clinic hours on Mondays and Wednesdays, and Walk-In Urgent Care Located in [facility] of [facility]. Patient provided with after-hours line for [facility], , which offer night time triage service and option to transfer to absorption and adsorption engineer provider if needed. CHW will attempt another follow up call within 10 days.[id number] documented in this encounter Plan of Treatment Upcoming Encounters Date Type Department Care Team (Late st Contact Info) Description 03/14/2025 1:15 PM EDT Office Visit [facility] CHC MED & PEDS [address] [place] [address] Lana Couch FNP [address] [place] [address] 03/18/2025 10:00 AM EDT Office Visit [facility] MEDICINE [address] [place] [address] Anil Metzger MD [address] [place] [address] 03/25/2025 2:30 PM EDT Office Visit [facility] MEDICINE [address] [place], [place] [phone] Jeo De Leon MD [address] [place] [address] documented as of this encounter Visit Diagnoses Not on filedocumented in this encounter Additional Health Concerns Assessment Noted Time PHQ-9 Depression Total Score: 0 05/29/20 11:15 AM EDT documented as of this encounter Care Teams Staff Nurse Midwife Relationship Specialty Start Date End Date Lana Couch FNP [address] [place] [phone] PCP - General Family Medicine 01/28/23 documented as of this encounter
--- OUTSIDE RECORDS SUMMARY | 2025-02-23 11:28 | XMS_ITS | Encounter Summary ---
Author Organization [employer] Address 75 [facility] 7t [place] [address] Care Team Providers Care Cant Gang Sawyer Name Role Phone Lana Couch GRECIA Primary Care Provider [phone] Reason for Visit * Reason Comments Med Refill Encounter Details Date Type Department Care Team (Late st Contact Info) Description 09/02/2024 Refill [facility] 230 [place], [place] [phone] Aditya Summers MD 230 [place], [place] [phone] Social History Tobacco Use Types Packs/Day Years [...] with others, in a hotel, in a jail, living outside on the street, on a [...] Description 03/14/2025 1:15 PM EDT Office Visit [facility] CHC MED & PEDS [address] [place], [place] [phone] Lana Couch FNP [address] [place] [address] 03/18/2025 10:00 AM EDT Office Visit [facility] MEDICINE [address] [place] [address] Anil Metzger MD [address] [place] [address] 03/25/2025 2:30 PM EDT Office Visit [address] [address] Joe De Leon MD [address] [place] [address] documented as of this encounter Visit Diagnoses Not on filedocumented in this encounter Additional Health Concerns Assessment Noted Time PHQ-9 Depression Total Score: 0 05/29/20 11:15 AM EDT documented as of this encounter Care Teams Cant Gang Sawyer Relationship Specialty Start Date End Date Lana Couch FNP [address] [place] [address] PCP - General Family Medicine 01/28/23 documented as of this encounter
--- OUTSIDE RECORDS SUMMARY | 2025-02-23 11:28 | XMS_ITS | Encounter Summary ---
Author Organization [employer] Address 75 [facility] 7t [place] [address] Care Team Providers Care Field Support Engineer Name Role Phone Lana Couch GRECIA Primary Care Provider [phone] Reason for Visit * Reason Comments Pre-op Exam Encounter Details Date Type Department Care Team ([facility] st Contact Info) Description 02/23/2025 9:45 AM EDT Office Visit [facility] CHC MED & PEDS [address] [place], [place] [phone] Megan Garcia MD 505 [place] [address] Preop examination (Primary Dx); Acute respiratory failure with hypoxia (CMS/HCC) Social History Tobacco Use Types Packs/Day [...] with others, in a hotel, in a prison, living outside on the street, on a [...] AM EDT documented as of this encounter Last Filed Vital Signs Vital Sign Reading Time Taken Comments Blood Pressure 124/91 02/23/2025 9:59 AM EDT Pulse 93 02/23/2025 9:59 AM EDT Temperature 36.1 ??C (96.9 ??F) 02/23/2025 9:59 AM ED T Respiratory Rate 20 02/23/2025 9:59 AM EDT Oxygen Saturation 97% 02/23/2025 9:59 AM EDT Inhaled Oxygen Concentration - - Weight 98.9 kg (218 lb) 02/23/2025 9:59 AM EDT Height 172.7 cm (5' 8 ) 02/23/2025 9:59 AM EDT Body Mass Index 33.15 02/23/2025 9:59 AM EDT documented in this encounter Plan of Treatment Upcoming Encounters Date Type Department Care Team (Late st Contact Info) Description 03/14/2025 1:15 PM EDT Office Visit [facility] CHC MED & PEDS [address] [place] [address] Lana Couch FNP [address] [place] [address] 03/18/2025 10:00 AM EDT Office Visit [facility] MEDICINE [address] [place] [address] Anil Metzger MD [address] [place] [address] 03/25/2025 2:30 PM EDT Office Visit [facility] MEDICINE [address] [place] [address] Joe De Leon MD [address] [place] [address] Scheduled Orders Name Type Priority Associated Diagnoses Orde r Schedule Basic Metabolic Panel Lab Routine Preop examination Expected: 02/23/2025 (Approximate), Expires: 02/23/2026 CBC auto differential Lab Routine Preop examination Expected: 02/23/2025 (Approximate), Expires: 02/23/2026 Prothrombin Time-INR Lab Routine Preop examination Expected: 02/23/2025, Expires: 02/23/2026 documented as of this encounter Visit Diagnoses Diagnosis Preop examination- Primary Unspecified pre-operative examination Acute respiratory failure with hypoxia (CMS/HCC) documented in this encounter Additional Health Concerns Assessment Noted Time PHQ-9 Depression Total Score: 0 05/29/20 11:15 AM EDT documented as of this encounter Care Teams Field Support Engineer Relationship Specialty Start Date End Date Lana Couch FNP [address] [place] [address] PCP - General Family Medicine 01/28/23 documented as of this encounter
--- OUTSIDE RECORDS SUMMARY | 2025-02-23 11:28 | XMS_ITS | Encounter Summary ---
Author Organization [employer] Address [address] [place] [address] Care Team Providers Care Reproductive Healthcare Assistant Name Role Phone Lana Couch GRECIA Primary Care Provider [phone] Reason for Visit * Reason Comments OBAT Encounter Details Date Type Department Care Team (Latest Contact Info) Description 02/18/2025 9:30 AM EDT Office Visit [facility] [address], [place] [phone] Anil Metzger MD [address], [place] [phone] Uncomplicated opioid dependence (CMS/HCC) (Primary Dx); Alcohol use disorder; Vapes nicotine containing substance; Cellulitis, unspecified cellulitis site; Seborrheic dermatitis Social History Tobacco Use Types Packs/Day Years [...] AM EDT documented as of this encounter Progress Notes * Anil Metzger MD - 02/18/2025 9:30 AM EDT Ananda Coles is a 59 y.o. male who presents for OBOT f/u. Suboxone dose 24/6 mg (12/26/23) On a 4 week schedule. Induction: 09/16/23 LFTs done: 04/07/23 WNL (post Hep C treatment) PCP: Lana Couch, last visit 08/15/23 Tobacco: vaping with occasional cigarette 01/21/25 Utox BUP BNZ Ananda's recently . It's been tough. No family contact. He is now staying with a good friend. She has been in recovery from alcohol for many years. This isreally helpful. Great that he is no longer in the motel. She she insistent that he not drink. Reports drinking around every 3 days. Gets a little, not bad. Can go 5 days without alcohol. He has not been to Detox and declines same. Denies any benzo use. Smoking ~ 1 cigarette daily. ~ 3 vapes per month. Declines BH. Needs a form filled for 'food stamps'. As above. Looks better than the last few times he did. Alcohol use way down. Aware of ANALY. Utox send to [facility]. F/U 4 weeks. Uncomplicated opioid dependence (CMS/HCC) Continues to do well. Ask him to do labs ordered by Dr. Keenan To bring food stamp form to his PCP's team. No ADRs Vapes nicotine containing substance As above. Continue to review. Today 02/18/25 F/U for opioid use disorder Utox BUP, THC Doing ok. 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 Asks for Rx for facial rash (has had some crusting of his ears in the the past. Short course of prednisone has helped in the past. Having trouble falling a sleep. Drinking a lot less. Can go 4 days without then gets shaky. When he drinks he has 4 + nips. He is interested in extended stay detox. Needs PT1 for post surgery appointments. Rotary cuff surgery 03/17. No ADRs. Objective Physical Exam Constitutional: Appearance: Normal appearance. Skin: Comments: Erythema and scaling labial folds. Scatter crusted lesions of arms and legs. Minimal surrounding erythema. No tenderness. Neurological: Mental Status: He is alert and oriented to person, place, and time. Psychiatric: Mood and Affect: Mood normal. Behavior: Behavior normal. Thought Content: Thought content normal. Assessment/Plan Alcohol use disorder Utox BUP, THC Doing ok. 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 Asks for Rx for facial rash (has had some crusting of his ears in the the past. Short course of prednisone has helped in the past. Having trouble falling a sleep. Also, areas of 'scabs' which seem to just come on. He scratches these. No drainage. Drinking a lot less. Can go 4 days without then gets shaky. When he drinks he has 4 + nips. He is interested in extended stay detox. Needs PT1 for post surgery appointments. Rotary cuff surgery 03/17. No ADRs. As above. Met with a refinery operator vapor recovery unit to assist in getting into Detox. Offer acamprosate or topiramate post Detox. If does not go to Detox, discuss gabapentin. Reminded he has a pre-op next week with Dr. Garcia and a March appointment with Dr. Goodrich. Will try HS hydroxyzine for sleep/anxiety. Will review other treatment on f/u if needed F/U 4 weeks. Uncomplicated opioid dependence ([facility]) As above. Doing well Vapes nicotine containing substance Not reviewed today. Seborrheic dermatitis Dicussed Reviewed. Ketoconazole 2%. ? etiology of arm and skin 'lesions'. Reports short term prednisone has helped in the past. Rxed prednisone 4o mg daily x 5 days. Diagnoses and all orders for this visit: Uncomplicated opioid dependence ([facility]) - POCT RONAK-14 Urine Drug Screen Alcohol use disorder Vapes nicotine containing substance Cellulitis, unspecified cellulitis site - predniSONE (Deltasone) 20 MG tablet; 2 tabs po daily for 5 days. Take with food. Seborrheic dermatitis Other orders - hydrOXYzine pamoate (Vistaril) 25 MG capsule; 1 or 2 capsule PO at bedtime prn sleep - ketoconazole (NIZOral) 2 % cream; Apply twice daily for rash This information has been disclosed to you from records protected by federal confidentiality rules(42 CFR Part 2). The federal rules prohibit you from making any further disclosure of information in this record that identifies a patient as having or having had a substance use disorder either directly, by reference to publicly available information, or through verification of such identificationby another person unless further disclosure is expressly permitted by the written consent of the individual whose information is being disclosed or as otherwise permitted by (see 2.3.1). The federal rules restrict any use of the information to investigate or prosecute with regard to a crime any patient with a substance use disorder, except as provided at 2.12??(5) and 2.65. documented in this encounter Plan of Treatment Upcoming Encounters Date Type Department Care Team (Late st Contact Info) Description 03/14/2025 1:15 PM EDT Office Visit [facility] [address] [place], [place] [phone] Lana CouchRAYMUNDOP [address] [place] [address] 03/18/2025 10:00 AM EDT Office Visit [facility] [address] [place] [phone] Anil Metzger MD [address], [place] [phone] 03/25/2025 2:30 PM EDT Office Visit [facility] [address] [place] [address] Joe De Leon MD [address] [place] [address] documented as of this encounter Procedures Procedure Name Priority Date/Time Associated Diagnosis Comments POCT RONAK-14 URINE DRUG SCREEN Routine 02/18/2025 9:27 AM EDT Uncomplicated opioid dependence ([facility]) documented in this encounter Results * POCT RONAK-14 Urine Drug Screen (02/18/2025 9:27 AM EDT) THC Positive Cocaine Screen, Urine Negative Opiate Screen, Urine Negative Methamphetamine Screen Urine Negative Amphetamine Screen, Urine Negative Benzodiazepines Screen, Urine Negative Barbiturate Screen, Urine Negative Methadone Screen, Urine Negative Buprenophine Screen, Urine Positive TCA, Urine Negative MDMA Urine Negative ng/mL Oxycodone Screen, Urine Negative Phencyclidine (PCP), Urine Negative Fentanyl, Urine Negative Urine Urine specimen obtained by clean catch procedure / Unknown 02/18/2025 9:27 AM EDT Anil Metzger MD POINT OF CARE TEST ENTER/EDIT ORDERABLES Final Result documented in this encounter Visit Diagnoses Diagnosis Uncomplicated opioid dependence ([facility])- Primary Alcohol use disorder Vapes nicotine containing substance Cellulitis, unspecified cellulitis site Seborrheic dermatitis Unspecified seborrheic dermatitis documented in this encounter Additional Health Concerns Assessment Noted Time PHQ-9 Depression Total Score: 0 05/29/20 11:15 AM EDT documented as of this encounter Care Teams Reproductive Healthcare Assistant Relationship Specialty Start Date End Date Lana Couch FNP [address] [place] [id number] PCP - General Family Medicine 01/28/23 documented as of this encounter
--- OUTSIDE RECORDS SUMMARY | 2025-02-23 11:28 | XMS_ITS | Clinical Summary ---
Author Organization [employer] Address [address] [facility] [place] [address] Care Team Providers Care Gmat Tutor Name Role Phone Lana Couch GRECIA Primary Care Provider [phone] Allergies No known active allergies Medications * This document contains information received from the source organization and may not represent a complete record from that organization. gabapentin (Neurontin) 800 MG tabletIndication s:Lumbar radiculopathy Take 1 tablet (800 mg) by mouth 3 times daily. 90 tablet 5 08/25/20 23 Active tiotropium (Spiriva Respimat) 1.25 MCG/ACT inhalerIndicatio ns:Acute respiratory failure with hypoxia (CMS/HCC) Inhale 2 puffs Once per day. 4 g 3 02/09/20 24 Active triamcinolone (Kenalog) 0.1 % cream Apply topically 2 times daily. 15 g 1 09/24/20 24 Active Blood Pressure kit 1 each 2 times daily. 1 kit 09/24/20 24 025 Active furosemide (Lasix) 40 MG tabletIndication s:Lower extremity edema Take 1 tablet (40 mg) by mouth Once per day. 90 tablet 1 11/16/19 25 026 Active amoxicillin (Amoxil) 500 MG capsuleIndicatio ns:Cellulitis, unspecified cellulitis site Take 1 tab po bid for 10 days 20 capsule 11/24/19 25 Active acamprosate (Campral) 333 MG EC tabletIndication s:Alcohol use disorder 1 pill PO BID on first, then 1 pill PO TID for 2 days, then 2 pills PO TID. day Do not crush, chew, or split. 90 tablet 12/03/19 25 Active folic acid (Folvite) 1 MG tabletIndication s:Alcohol use disorder Take 1 tablet (1 mg) by mouth Once per day. 90 tablet 2 12/03/19 25 026 Active Multiple Vitamin (multivitamin) tabletIndication s:Alcohol use disorder Take 1 tablet by mouth Once per day. 90 tablet 2 12/03/19 25 Active acamprosate (Campral) 333 MG EC tabletIndication s:Alcohol use disorder I tablet PO BID x 2 days, then 2 tablets PO TID. Do not crush, chew, or split. 90 tablet 2 12/08/19 25 Active folic acid (Folvite) 1 MG tabletIndication s:Alcohol use disorder Take 1 tablet (1 mg) by mouth Once per day. 90 tablet 2 12/08/19 25 025 Active thiamine (Vitamin B-1) 100 MG tabletIndication s:Alcohol use disorder Take 1 tablet (100 mg) by mouth Once per day. 90 tablet 2 12/08/19 25 025 Active Multiple Vitamin (multivitamin) tabletIndication s:Alcohol use disorder Take 1 tablet by mouth Once per day. 90 tablet 2 12/08/19 25 025 Active ibuprofen 800 MG tabletIndication s:Acute pain of right shoulder TAKE 1 TABLET BY MOUTH TWICE A DAY NEEDED FOR PAIN 100 tablet 2 02/03/20 25 Active Buprenorphine HCl-Naloxone HCl (Suboxone) 8-2 MG SL filmIndications: Uncomplicated opioid dependence (CMS/HCC) Place 1 Film under the tongue 3 times daily for 28 days. Do not start before February 18, 2025. 84 Film 02/19/20 25 025 Active hydrOXYzine pamoate (Vistaril) 25 MG capsule 1 or 2 capsule PO at bedtime prn sleep 30 capsule 1 02/19/20 25 Active predniSONE (Deltasone) 20 MG tabletIndication s:Cellulitis, unspecified cellulitis site 2 tabs po daily for 5 days. Take with food. 10 tablet 02/19/20 25 Active ketoconazole (NIZOral) 2 % cream Apply twice daily for rash 60 g 02/19/20 25 Active mupirocin (Bactroban) 2 % ointment APPLY TWICE A DAY FOR 7 DAYS 08/12/20 17 Active albuterol (Ventolin HFA) 108 (90 Base) MCG/ACT inhalerIndicatio ns:Acute respiratory failure with hypoxia (CMS/HCC) INHALE 2 PUFFS BY MOUTH EVERY 4 HOURS NEEDED FOR WHEEZING OR SHORTNESS OF BREATH 18 g 3 02/24/20 25 Active DULoxetine (Cymbalta) [address] capsule Take 20 mg by mouth 2 times daily. 12/04/19 23 025 Discontinued(T herapy completed) ibuprofen 800 MG tabletIndication s:Acute pain of right shoulder TAKE 1 TABLET BY MOUTH TWICE A DAY NEEDED FOR PAIN 100 tablet 2 12/24/19 24 025 Discontinued(R eorder (will not trigger notification to Pharmacy)) FLUoxetine (PROzac) 40 MG capsule TAKE 1 CAPSULE BY MOUTH EVERY MORNING WITH FOOD 02/03/20 24 025 Discontinued(T herapy completed) albuterol (Ventolin HFA) 108 (90 Base) MCG/ACT inhalerIndicatio ns:Acute respiratory failure with hypoxia (CMS/HCC) INHALE 2 PUFFS BY MOUTH EVERY 4 HOURS NEEDED FOR WHEEZING OR SHORTNESS OF BREATH 18 g 3 08/24/20 24 025 Discontinued(R eorder (will not trigger notification to Pharmacy)) diazePAM (Valium) 5 MG tablet 1 or 2 tablets Po TID (~ q8 hours) prn alcohol withdrawal. 20 tablet 10/29/19 25 025 Discontinued(T herapy completed) predniSONE (Deltasone) 20 MG tabletIndication s:Cellulitis, unspecified cellulitis site 2 tabs po daily for 5 days 10 tablet 11/24/19 25 025 Discontinued(R eorder (will not trigger notification to Pharmacy)) predniSONE (Deltasone) 20 MG tablet 2 pills PO once daily for 3 days. Take with food. 6 tablet 12/03/19 25 025 Discontinued(D uplicate order (will not trigger notification to Pharmacy)) Buprenorphine HCl-Naloxone HCl (Suboxone) 8-2 MG SL filmIndications: Uncomplicated opioid dependence (CMS/HCC) Place 1 Film under the tongue 3 times daily for 28 days. 84 Film 01/22/20 25 025 Discontinued(R eorder (will not trigger notification to Pharmacy)) ketoconazole (NIZOral) 2 % cream Apply twice daily for rash 60 g 02/19/20 25 025 Discontinued Active Problems Problem Noted Date Diagnosed Date Lower extremity edema 11/16/2024 Overview (11/16/2024): -H/o CHF, Off Lasix for months for unclear reasons advised to resume lasix 40 mg once a day Labs ordered. pt will be contacted w/ results. Assessment & Plan (11/16/2024 2:41 PM EST): H/o CHF, Off Lasix for months for unclear reasons. Refuses CXR or ER for further work up. Denies cerebral pain or SOB. -advised to resume lasix 40 mg once a day -labs ordered -ER precautions discussed Cellulitis 11/16/2024 Assessment & Plan (11/24/2024 4:29 PM EST): Rash with evidence of superimposed cellulitis. Pt refuses all medications except amoxicillin and prednisone. Not the first choice of coverage but he was instant on that combo which is likely better than nothing given evidence of inflammation. Assessment & Plan (11/16/2024 2:42 PM EST): Rash with evidence of superimposed cellulitis. Pt refuses all medications except amoxicillin and prednisone. I explained this is not the first choice of coverage but he was instant on that combo which is likely better than nothing given evidence of inflammation. Chronic left shoulder pain 05/23/2024 Acute respiratory failure with hypoxia 4 Assessment & Plan (02/15/2024 2:13 PM EDT): Hx of tobacco use - ?COPD Also with concern of possible pulm nodules during [facility] ED visit 12/31/23 Maintenance: Spiriva 1.25mcg/act, 2 puffs daily Rescue: albuterol PRN Referral to Pulm Abnormal electrocardiogram (ECG) (EKG) 4 Overview (11/24/2024): Dx: suspected CAD/diastolic CHF/EKG changes noted during hospitalization January: Referral to [facility] 08/26/24: [facility] Cards - Dr. Jacobo. Eval for abnormal EKG - at office demonstrated bifasicular block: right bundle branch block & left anterior fasicular block. Needs further cardiac clearance - Echo/stress test ordered. Assessment & Plan (11/24/2024 4:19 PM EST): - Reports scheduled for stress test on 11/25/2024 - Continues with furosemide 40 mg daily with good response - ED/urgent care precautions reviewed Assessment & Plan (02/15/2024 2:32 PM EDT): Echo and Cards eval pending Knee pain 04/07/2023 Assessment & Plan (04/07/2023 1:33 PM EDT): Reports acute on chronic knee pain w no jhx of trauma No major findings on exam but painful w ambulation no swelling -requested today SAGAR-Delisa in [facility] to try to get record of last XR report -x now lidocaine patch and diclofenac prn cream -will avoid tylenol and NSAIDS w significantly elevated hx of LFTS -referred To orthopedic -pt reports following w one x back pain and given acute on chronic symptoms advised to f w specialist Tobacco use 01/28/2023 Assessment & Plan (11/24/2024 4:29 PM EST): -Currently smoking 1 ppd, vaping -Encouraged smoking cessation resources such as pharmacomtherapy, [facility] smoking cessation group, and [facility] pharmacy smoking cessation clinic -Recommended low-dose CT for lung cancer screening. Patient declines 11/24/2024 Assessment & Plan (08/28/2023 2:22 PM EST): -Currently smoking 1 ppd -Encouraged smoking cessation resources such as pharmacomtherapy, [facility] smoking cessation group, and [facility] pharmacy smoking cessation clinic Assessment & Plan (04/27/2023 8:33 PM EDT): -Currently smoking 1/2-1 ppd -Encouraged smoking cessation resources such as pharmacomtherapy, [facility] smoking cessation group, and [facility] pharmacy smoking cessation clinic Assessment & Plan (01/28/2023 6:32 PM EDT): -Currently smoking 1 ppd -Initially hesitant about smoking cessation resources, but then expressed interest in patch -Start 21mg NRT patch daily Recurrent cellulitis 12/31/2022 Assessment & Plan (05/11/2023 11:00 AM EDT): -Scattered lesions on body, not affecting plantar surface of hands/feets -Acute on chronic concern for pt, concern for superimprosed bacterial infx/cellulitis from persistent excoriation -Tx for cellulitis with course of Bactrim and Duricef. Reviewed med safety and SE -Rx topical mupirocin for future use PRN to prevent need for PO abx -Wound culture to eval for MRSA - pt may benefit from decolonization protocol if positive -Encouraged to avoid picking as much as possible, cont following with psych team -Referral to [facility] Derm team placed Assessment & Plan (12/31/2022 3:48 PM EDT): Prescribed Bactrim for cellulitis infection and hydrocortisone for surrounding areas with atopic dermatitis. Opioid dependence, uncomplicated 12/10/2022 Alcohol use disorder 09/10/2022 Assessment & Plan (11/24/2024 4:29 PM EST): Currently drinking approximately 10 nips per day Declines assistance with rehab on 11/24/2024, met with refinery operator vapor recovery unit Scheduled for [facility] appointment on 11/26/2024 Continues with Suboxone for OUD. Naltrexone interacts with Suboxone, may be candidate for acamprosate Lumbar radiculopathy 09/10/2022 Assessment & Plan (05/23/2024 3:18 PM EDT): MRI on 01/14/23 showed multilevel degenerative changes of the lumbar spine most severe at L3-L4 and L4-L5 Soreness and pain in BLE, shared decision making to increase gabapentin to 800mg TID. Reviewed med safety and SE Referral to [facility] Pain Management placed 08/28/23 Referral to [facility] Pain Management place 05/23/24 Assessment & Plan (08/28/2023 2:18 PM EST): ?? MRI on 01/14/23 showed multilevel degenerative changes of the lumbar spine most severe at L3-L4 and L4-L5 ?? Soreness and pain in BLE, shared decision making to increase gabapentin to 800mg TID. Reviewed med safety and SE ?? Referral to [facility] Pain Management placed 08/28/23 Assessment & Plan (04/27/2023 8:39 PM EDT): Refill of gabapentin 600mg TID, reviewed med safety and SE Orthopedic hardware present 09/10/2022 Mixed anxiety and depressive disorder 10/25/2021 History of repair of rotator cuff 10/25/2021 Overview (02/15/2024): Followed by [facility] Ortho Per consult January 2024: Large massive RTC tear in setting of prior surgery > 10 years ago Plan to book surgery for RTC repair Assessment & Plan (05/23/2024 3:24 PM EDT): Pre-op completed 05/18/24. In need of cardiac clearance/eval prior to scheduling surgery Assessment & Plan (06/01/2023 9:07 AM EDT): With current chronic bilat shoulder pain Referral to [facility] Ortho on 05/30/23 History of hepatitis C virus infection Assessment & Plan (02/15/2024 2:21 PM EDT): -Pt with hx of Hep C s/p tx -Plan for Hep C screening, abd US, and AFP Q6 months Labs and abd US pending as of April 2023 Assessment & Plan (04/07/2023 12:56 PM EDT): -advised to have labs today order today and once from 01/2023 -Referred x liver US to f results w PCP at upcoming visit -pt will f up after hospital visit w PCP in 2 weeks but from bried review today -pt needs to see cardiology x possible CHF ? Referred to cards today and resumed lasix 20 mg daily and refilled inh sent from hospital --- I sent a message today to [facility] specialist to call w image and referrals apts to his current residency [facility] given pt does not have a phone number Resolved Problems Problem Noted Date Diagnosed Date Resolved Date Alcohol use disorder 10/20/2024 025 Alcohol use disorder 10/20/2024 025 Hepatitis C virus infection cured after antiviral drug therapy 05/12/2023 02/15/2024 Skin lesion 04/07/2023 08/28/2023 Assessment & Plan (04/07/2023 1:00 PM EDT): Pt w mx skin lesions appears from scratching -reports itching -from previous notes symptoms are recurrent -will need to eval systemic dx --Dr Summers did already mx orders in 01/2023 to check x liver , hiv,rpr,hepC,but pt not done yet--advised to have today already ordered labs ,specially to monitor hep C VL and LFTs and CBC -ok to continue topical steroids ,and antihistamines PO prn -will tx empirically w cephalexin BID x 5 days for possible superinfected lesions -pt to come to see PCP to f lab results and skin rash in 2 weeks -if no improvement will need to see procurement analyst if ongoing symptoms. Class 1 obesity 02/14/2023 02/15/2024 Atopic dermatitis 12/31/2022 08/28/2023 Assessment & Plan (12/31/2022 3:47 PM EDT): Prescribed hydrocortisone 2.5% cream. Instructed patient to use it on dry affected skin but to not place it on open wounds. Chronic pain 10/25/2021 08/28/2023 Opioid abuse 10/25/2021 08/28/2023 Encounters * This document contains information received from the source organization and may not represent a complete record from that organization. Date Type Department Care Team Description 02/23/2025 9:45 AM EDT Office Visit [facility] [address] [place] [address] Megan Garcia MD Preop examination (Primary Dx); Acute respiratory failure with hypoxia (CMS/HCC) 02/23/2025 Travel 02/22/2025 Telephone [facility] [address] [place] [address] Barbara Chakraborty MA 02/18/2025 9:30 AM EDT Office Visit [facility] [address] [place] [phone] Anil Metzger MD Uncomplicated opioid dependence ([facility]/HCC) (Primary Dx); Alcohol use disorder; Vapes nicotine containing substance; Cellulitis, unspecified cellulitis site; Seborrheic dermatitis 02/18/2025 Travel 02/15/2025 Patient Outreach [address] [address] David Marcial Recovery Supports 02/15/2025 Refill [facility] [address] [place] [phone] Macie Mcgregor RN Uncomplicated opioid dependence ([facility]/HCC) 02/14/2025 Patient Outreach [address] [address] Fabrice Cantu [facility]orts 02/14/2025 Telephone [facility] [address] [place] [address] Aditya Summers MD 02/02/2025 Refill [facility] [address] [place] [address] Lana Couch FNP Acute pain of right shoulder 01/28/[address] [address] Lana Couch FNP Pre op 01/21/2025 9:00 AM EDT Office Visit [address] [address] Anil Metzger MD Opioid type dependence, continuous (CMS/HCC) (Primary Dx); Alcohol use disorder; Uncomplicated opioid dependence (CMS/HCC); Vapes nicotine containing substance 01/21/2025 Travel 01/14/[address] [address] Macie Mcgregor RN Uncomplicated opioid dependence ([facility]/HCC) 01/03/2025 Patient Outreach [address] [address] Alfredo Coello Outreach/No Answer (F/u on possible inpatient detox treatment ) 12/31/[address] [address] Macie Mcgregor RN 12/29/2024 Refill [facility] [address] [place] [address] Macie Mcgregor RN Uncomplicated opioid dependence ([facility]/HCC) 12/29/2024 Telephone [facility] [address] [place] [address] Macie Mcgregor RN 12/27/2024 Refill [facility] [address] [place] [address] Macie Mcgregor RN Uncomplicated opioid dependence ([facility]/HCC) 12/27/2024 Refill [facility] [address] [place] [address] Lana Couch FNP Cellulitis, unspecified cellulitis site; Uncomplicated opioid dependence (CMS/HCC) 12/24/2024 Population Health Risk Score [facility] () [address] [phone] Provider, Population Health Generic 12/22/2024 Telephone [facility] [address] [place] [address] Lana Couch FNP 12/20/2024 Telephone [facility] [address] [place] [address] Sarika Escalante MA Chart Prep 12/20/2024 Refill [facility] [address] [place] [address] Macie Mcgregor RN Uncomplicated opioid dependence ([facility]/HCC) 12/08/2024 Telephone [facility] [address] [place] [address] Anil Metzger MD 12/08/2024 Telephone [facility] [address] [place] [address] Anil Metzger MD 12/03/2024 9:45 AM EST Office Visit [facility] [address] [place] [address] Anil Metzger MD Uncomplicated opioid dependence ([facility]/HCC) (Primary Dx); Alcohol use disorder; Vapes nicotine containing substance 12/03/2024 Travel 12/01/2024 Refill [facility] [address] [place] [address] Macie Mcgregor, RN Uncomplicated opioid dependence (CMS/HCC) 11/26/2024 Telephone [facility] [address] [place] [address] Macie Mcgregor, JOHN 11/26/2024 Refill [facility] [address] [place] [address] Lana Couch, GRECIA Cellulitis, unspecified cellulitis site from Last 3 Months Immunizations Immunization Administration Dates Next Due Influenza, IIV3, injectable 07/14/2013 Pfizer Covid-19 Vaccine 12+ 07/13/2021, Pfizer Covid-19 Vaccine 12+ Bivalent 12/31/2022 Tdap 09/01/2023 Social History Tobacco Use Types Packs/Day Years Used Date Smoking Tobacco: Every Day Cigarettes Passive Smoke Exposure: Current Smokeless Tobacco: Never Tobacco Cessation:Ready to Q uit: Not Asked; Counseling Given: Not Answered Alcohol Use Standard Drinks/Week Comments Yes 0 (1 standard drink = 0.6 oz pur e alcohol) Depression Answer Date Recorded Patient Health Questionnaire-9 Score 0 05/29/2023 Housing Stability Answer Date Recorded What is your housing situation today? I do not have housing (Staying with others, in a hotel, in a halfway, living outside on the street, on a [...] the past 12 months, has t he [employer], [employer], [employer] or ehealthtracker threatened to shut off services in your home? No 08/14/2023 Depression Answer Date Recorded Patient Health Questionnaire-2 Score 0 05/29/2023 Sex and Gender Information Value Date Recorded Sex Assigned at Male 08/12/2022 10:37 AM EDT Legal Sex Male 10:37 AM EDT Gender Identity Male 08/12/2022 10:37 AM EDT Sexual Orientation Straight 08/12/2022 10 :37 AM EDT Last Filed Vital Signs Vital Sign Reading [...] Mass Index 33.15 02/23/2025 9:59 AM EDT Plan of Treatment Upcoming Encounters Date Type Department Care Team (Late st Contact Info) Description 03/14/2025 1:15 PM EDT Office Visit [facility] [address] [place] [address] Lana Couch, SOLAR SALES ESTIMATOR [address] [place] [address] 03/18/2025 10:00 AM EDT Office Visit [facility] [address] [place] [address] Anil Metzger MD [address] [place] [id number] 03/25/2025 2:30 PM EDT Office Visit [facility] [address] [place] [phone] Joe De Leon MD [address] [place] [address] Health Maintenance Due Date Last Done Comments CT Colonography 1965 FIT DNA/Cologuard 1965 FIT 1965 FOBT 1965 Sigmoidoscopy 1965 Alcohol/Substance Use Screening 1977 Hepatitis A Vaccines (1 of 2 - Risk 2-dose series) 02/26/1984 Hepatitis B Vaccines (1 of 3 - 19+ 3-dose series) 02/26/1984 Pneumococcal Vaccine: 50+ Years (1 of 2 - PCV) 02/26/1984 Zoster Vaccines (1 of 2) 2015 Colonoscopy 02/26/2020 2010 Colorectal Cancer Screening 02/26/2020 Depression Screening 05/29/2024 05/29/2023, 05/29/2023 COVID-19 Vaccine (4 - 2023-2 5 season) 2024 12/31/2022, 07/13/2021, 06/22/2021 Influenza Vaccine (#1) 2024 07/14/2013 SDOH Screening 09/24/2024 09/24/2023 Tobacco Screening 11/24/2025 11/24/2024 Lipid Panel 03/01/2027 03/01/2022 DTaP/Tdap/Td Vaccines (2 - T d or Tdap) 09/01/2033 09/01/2023 RSV Patients and Patients Aged 60 years or older (1 - 1-dose 75+ series) 02/26/2040 HIV Screening Completed 04/07/2023, 01/12/2021 HIB Vaccines Aged Out No longer eligi ble based on patient's age to complete this topic HPV Vaccines Aged Out No longer eligi ble based on patient's age to complete this topic IPV Vaccines Aged Out No longer eligi ble based on patient's age to complete this topic Meningococcal B Vaccine Aged Out No l onger eligible based on patient's age to complete this topic Meningococcal Vaccine Aged Out No romina lissette eligible based on patient's age to complete this topic RSV under 20 months Aged Out No longe r eligible based on patient's age to complete this topic Rotavirus Vaccines Aged Out No longer eligible based on patient's age to complete this topic Procedures Procedure Name Priority Date/Time Associated Diagnosis Comments POCT RONAK-14 URINE DRUG SCREEN Routine 02/18/2025 9:27 AM EDT Uncomplicated opioid dependence (CMS/HCC) DRUG MONITORING, BENZODIAZEPINES, QUANTITATIVE, URINE Routine 01/21/2025 9:46 AM EDT Opioid type dependence, continuous (CMS/HCC) POCT RONAK-14 URINE DRUG SCREEN Routine 01/21/2025 9:08 AM EDT Opioid type dependence, continuous (CMS/HCC) HIV 1/2 ANTIGEN/ANTIBODY, FOURTH GENERATION W/RFL Routine 04/07/2023 10:08 AM EDT Opioid dependence, uncomplicated (CMS/HCC) LIPID PANEL, STANDARD Routine 03/01/2022 11:10 AM EDT HM COLONOSCOPY Routine 2010 from Last 3 Months or Most Recently Relevant to Health Maintenance Results * POCT RONAK-14 Urine Drug Screen (02/18/2025 9:27 AM EDT) Only the most recent of2 resultswithin the time period is included. THC Positive Cocaine Screen, Urine Negative Opiate [...] procedure / Unknown 02/18/2025 9:27 AM EDT us Anil Metzger MD POINT OF CARE TEST ENTER/EDIT ORDERABLES Final Result * Drug Monitoring, Benzodiazepines, Quantitative, Urine (01/21/2025 9:46 AM EDT) Nordiazepam, GCMS Urine NEGATIVE [facility] Comment:REFERENCE RANGE: <50 ng/mL Oxazepam, GCMS Urine 124 [facility] Comment:REFERENCE RANGE: <50 ng/mL Lorazepam GCMS Urine NEGATIVE [facility] Comment:REFERENCE RANGE: <50 ng/mL Alprazolam, GCMS Urine NEGATIVE [facility] Comment:REFERENCE RANGE: <25 ng/mL Alphahydroxytriazolam, GCMS Ur NEGATIVE [facility] Comment:REFERENCE RANGE: <50 ng/mL Temazepam, GCMS Urine NEGATIVE [facility] Comment:REFERENCE RANGE: <50 ng/mL Alphahydroxymidazolam,GC MS Ur NEGATIVE [facility] Comment:REFERENCE RANGE: <50 ng/mL Aminoclonazepam, GCMS Urine NEGATIVE [facility] Comment:REFERENCE RANGE: <25 ng/mL Flurazepam Metabolite,GCMS Ur NEGATIVE [facility] Comment:REFERENCE RANGE: <50 ng/mL Benzodiazepines Comments SEE NOTE [facility] Comment:This drug testing is for medical treatment only. Analysiswas performed as non-forensic testing and these resultsshould be used only by healthcare providers to renderdiagnosis or treatment, or to monitor progress of medicalconditions.Benzodiazepines Notes:Oxazepam detected is consistent with the use of the drugOxazepam. Oxazepam can be a prescribed drug and is also ametabolite of Diazepam, Chlordiazepoxide, Clorazepate andTemazepam.LDT Notes:Confirmation tests were developed and their analyticalperformance characteristics have been determined by [employer]. It has not been cleared or approved by the FDA.This assay has been validated pursuant to the CLIAregulations and is used for clinical purposes.Healthcare Providers needing Interpretation assistance,please contact us at [phone] ( ) M-F,8am to 10pm ESTTHIS TEST PERFORMED AT:[facility] [address] [phone] DIRECTOR: DIGNA HOOKS MD Urine 01/21/2025 9:46 AM EDT 01/21/2025 11:45 AM EDT us Anil Metzger MD LAB URINE ORDERABLES Final Res ult Performing Organization Address [facility] [place]/ZIP Co de Phone Number [facility] [address] [place] [address] [phone] * HIV-1/2 Antigen and Antibodies, Fourth Generation, with Reflexes (04/07/2023 10:08 AM EDT) Pathologist [facility] [place] [facility] HIV Antigen/Antibody, 4th Generation NON-REAC TIVE NON-REAC TIVE [facility] [place] [employer] Comment: HIV-1 antigen and HIV-1/HIV-2 antibodies were not detected. There is no laboratory evidence of HIV infection. PLEASE NOTE: This information has been disclosed to you from records whose confidentiality may be protected by state law. ??If your state requires such protection, then the state law prohibits you from making any further disclosure of the information without the specific written consent of the person to whom it pertains, or as otherwise permitted by law. A general authorization for the release of medical or other information is NOT sufficient for this purpose. ?? For additional information please refer to http://education.[employer]/faq/MSA222 (This link is being provided for informational/ educational purposes only.) The performance of this assay has not been clinically validated in patients less than 2 years old. Blood Venous blood specimen / Unknown 04/07/2023 10:08 AM EDT 04/07/2023 10:08 AM EDT Narrative [facility] - 04/13/2023 11:56 PM EDT FASTING:NO FASTING: NO Aditya Summers MD LAB BLOOD ORDERABLES Final Resul t Performing Organization Address City/[facility]/ZIP Co de Phone Number [facility] [address], [place] [address] [facility] [place] [facility] [address] [place] [address] * LIPID PANEL, STANDARD (03/01/2022 11:10 AM EDT) Chol/HDLC Ratio 3.3 <5.0 (calc) [facility] Cholesterol, Total 150 <200 mg/dL [facility] HDL Cholesterol 45 > OR = 40 mg/dL [facility] LDL Cholesterol 91 mg/dL (calc) [facility] Comment: Reference range: <100 ?? Desirable range <100 mg/dL for primary prevention; ?? <70 mg/dL for patients with CHD or diabetic patients ?? with > or = 2 CHD risk factors. ?? LDL-C is now calculated using the Denys ?? calculation, which is a validated novel method providing ?? better accuracy than the Friedewald equation in the ?? estimation of LDL-C. ?? Didier FLORES et al. DANIEL. 2013;310(19): 9117-0981 ?? (http://education.[employer]/faq/JSA207) Non-HDL Cholesterol 105 <130 mg/dL (calc) [facility] Comment: For patients with diabetes plus 1 major ASCVD risk ?? factor, treating to a non-HDL-C goal of <100 mg/dL ?? (LDL-C of <70 mg/dL) is considered a therapeutic ?? option. 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
--- OUTSIDE RECORDS SUMMARY | 2025-02-23 11:28 | XMS_ITS | Encounter Summary ---
Author Organization [employer] Address 75 [facility] 7t [place] [address] Care Team Providers Care Refrigeration Engineering Teacher Name Role Phone Lana Couch GRECIA Primary Care Provider [phone] Encounter Details Date Type Department Care Team (Latest Contact Info) Description 02/18/2025 Travel Social History Tobacco Use Types Packs/Day Years [...] with others, in a hotel, in a nursing home, living outside on the street, on [...] Description 03/14/2025 1:15 PM EDT Office Visit [facility] MED & PEDS [address] [place] [address] Lana Couch FNP 505 [place] [address] 03/18/2025 10:00 AM EDT Office Visit [facility] MEDICINE [address] [place] [address] Anil Metzger MD [address] [place] [address] 03/25/2025 2:30 PM EDT Office Visit [address] [address] Joe De Leon MD [address] [place] [address] documented as of this encounter Visit Diagnoses Not on filedocumented in this encounter Additional Health Concerns Assessment Noted Time PHQ-9 Depression Total Score: 0 05/29/20 23 11:15 AM EDT documented as of this encounter Care Teams Refrigeration Engineering Teacher Relationship Specialty Start Date End Date Lana Couch FNP [address] [place] [address] PCP - General Family Medicine 01/28/23 documented as of this encounter
--- OUTSIDE RECORDS SUMMARY | 2025-02-23 11:28 | XMS_ITS | Encounter Summary ---
Author Organization [employer] Address 75 [facility] 7t [place] [address] Care Team Providers Care Bull Rider Name Role Phone Lana Couch GRECIA Primary Care Provider [phone] Encounter Details Date Type Department Care Team (Latest Contact Info) Description 02/23/2025 Travel Social History Tobacco Use Types Packs/Day [...] Description 03/14/2025 1:15 PM EDT Office Visit [facility] MED & [facility]EDS [address] [place] [address] Lana Couch FNP 505 [place] [address] 03/18/2025 10:00 AM EDT Office Visit [facility] MEDICINE [address] [place] [address] Anil Metzger MD [address] [place] [address] 03/25/2025 2:30 PM EDT Office Visit [address] [address] Joe De Leon MD [address] [place] [address] documented as of this encounter Visit Diagnoses Not on filedocumented in this encounter Additional Health Concerns Assessment Noted Time PHQ-9 Depression Total Score: 0 05/29/20 23 11:15 AM EDT documented as of this encounter Care Teams Bull Rider Relationship Specialty Start Date End Date Lana Couch FNP [address] [place] [address] PCP - General Family Medicine 01/28/23 documented as of this encounter
--- OUTSIDE RECORDS SUMMARY | 2025-02-23 11:28 | XMS_ITS | Encounter Summary ---
Author Organization [employer] Address [address] [facility] [address] 7t [place] [address] Care Team Providers Care Nursing Informatics Specialist Name Role Phone Lana Couch Primary Care Provider [phone] Reason for Visit * Reason Onset Date Comments Appointment Request 09/22/2023 Encounter Details Date Type Department Care Team (Late st Contact Info) Description 09/22/2023 Telephone [facility] MEDICINE [address] [place] [address] Lana Couch FNP [address] [place], [place] [phone] Appointment Request Social History Tobacco Use Types Packs/Day [...] with others, in a hotel, in a fdc, living outside on the street, on a [...] encounter Miscellaneous Notes * Telephone Encounter - Vee Lovelace RN - 09/22/2023 2:44 PM EST TC X1 to pt regarding message below. Pt had appt on 09/26/23 and was cancelled. Unsure why appt wascancelled yet pt requesting appt. LVM to return call to nurses. * Telephone Encounter - Eleno Bal - 09/22/2023 10:48 AM EST Tc from patient requesting a appt to speak with PCP patient was not giving information on why needing appt documented in this encounter Plan of Treatment Upcoming Encounters Date Type Department Care Team (Late st Contact Info) Description 03/14/2025 1:15 PM EDT Office Visit [facility] MED & PEDS [address] [place] [address] Lana Couch FNP [address] [place] [address] 03/18/2025 10:00 AM EDT Office Visit [facility]INE [address] [place] [address] Anil Metzger MD [address] [place] [address] 03/25/2025 2:30 PM EDT Office Visit [facility] MED[facility]INE [address] [place] [address] Joe De Leon MD 230 [place] [address] documented as of this encounter Visit Diagnoses Not on filedocumented in this encounter Additional Health Concerns Assessment Noted Time PHQ-9 Depression Total Score: 0 05/29/20 11:15 AM EDT documented as of this encounter Care Teams Nursing Informatics Specialist Relationship Specialty Start Date End Date Lana Couch FNP [address] [place] [address] PCP - General Family Medicine 01/28/23 documented as of this encounter
--- OUTSIDE RECORDS SUMMARY | 2025-02-23 11:28 | XMS_ITS | Encounter Summary ---
Author Organization [employer] Address 75 [facility] 7t [place] [address] Care Team Providers Care Manager Landscape Name Role Phone Lana Couch GRECIA Primary Care Provider [phone] Encounter Details Date Type Department Care Team (Late st Contact Info) Description 02/22/2025 Telephone [facility] MEDICINE [address] [place], [place] [phone] Barbara Chakraborty [place] Social History Tobacco Use Types Packs/Day Years [...] with others, in a hotel, in a mcfp, living outside on the street, on a [...] encounter Miscellaneous Notes * Telephone Encounter - Barbara Chakraborty MA - 02/22/2025 9:00 AM EDT Called pt in regards to a letter pt wanted signed. No answer lvm to call back documented in this encounter Plan of Treatment Upcoming Encounters Date Type Department Care Team ([facility] st Contact Info) Description 03/14/2025 1:15 PM EDT Office Visit [facility] MED & PEDS [address] [place] [address] Lana Couch FNP [address] [place] [address] 03/18/2025 10:00 AM EDT Office Visit [facility] MEDICINE [address] [place] [address] Anil Metzger MD [address] [place] [address] 03/25/2025 2:30 PM EDT Office Visit [facility] MED[facility]INE [address] [place] [address] Joe De Leon MD [address] [place] [address] documented as of this encounter Visit Diagnoses Not on filedocumented in this encounter Additional Health Concerns Assessment Noted Time PHQ-9 Depression Total Score: 0 05/29/20 23 11:15 AM EDT documented as of this encounter Care Teams Manager Landscape Relationship Specialty Start Date End Date Lana Couch FNP [address] [place] [address] PCP - General Family Medicine 01/28/23 documented as of this encounter
[2025-02-23 14:55] LABS: MANUAL DIFF FLAG NO
[2025-02-23 15:03] LABS: Basophils Absolute Auto 0.1 X10*3/uL (0.0-0.2); Basophils Percent Auto 0.7 % (0-2); Eosinophils Absolute Auto 0.4 X10*3/uL (0.0-0.4); Eosinophils Percent Auto 5.2 % (0-4); Hematocrit 40.6 % (42.0-52.0); Hemoglobin 14.5 g/dl (14.0-18.0); Imm Gran Abs Auto 0.03 X10*3/uL (0.00-0.03); Imm Gran Pct Auto 0.4 % (0.0-0.4); Lymphocytes Absolute Auto 2.4 X10*3/uL (1.2-4.9); Lymphocytes Percent Auto 34.4 % (20-40); Mean Corpuscular HGB Conc 35.7 g/dl (31.0-36.0); Mean Corpuscular Hemoglobin 36.3 pg (27.0-33.0); Mean Corpuscular Volume 101.8 fL (80.0-98.0); Mean Platelet Volume 10.9 fL (9.4-12.4); Monocytes Percent Auto 14.6 % (2-11); Neutrophils Absolute Auto 3.2 x10*3/uL (2.0-8.3); Neutrophils Percent Auto 44.7 % (45-73); Platelet Count 271 X10*3/uL (160-400); Red Blood Count 3.99 X10*6/uL (4.60-5.80); Red Cell Distribution Width 13.1 % (11.0-16.0); White Blood Count 7.1 X10*3/uL (4.8-10.8)
[2025-02-23 15:16] LABS: Anion Gap 13 (12-20); Blood Urea Nitrogen 10 mg/dL (9-16); Calcium 8.9 mg/dL (8.4-10.2); Carbon Dioxide 20 mmol/L (22-29); Chloride 113 mmol/L (96-108); Estimated Glomerular Filt Rate > 60; Glucose Random 98 mg/dL (60-115); Potassium 3.8 mmol/L (3.3-5.1); Sodium 142 mmol/L (135-145)
[2025-02-24 07:41] LABS: Prothrombin Time 11.1 SEC (10.9-12.4)
== END 2025-02-23 10:27 | disposition home or self-care (01) ==
LOC: HO.CHCLDS 10:26
PROVIDERS: Visit Provider Pediatrics
DX: Z01.818 Encounter for other preprocedural examination (principal)
CPT/HCPCS: 36415; 80048; 85025; 85610

== ENCOUNTER 2025-03-10 14:07 | Outpatient (AMB) | payer MEDICAID, SELFPAY ==
--- OUTSIDE RECORDS SUMMARY | 2025-03-10 14:18 | XMS_ITS | Encounter Summary ---
Author Organization [employer] Address [address] [facility] 7t [place] [address] Care Team Providers Care Pcmh Specialist Name Role Phone Lana Couch GRECIA Primary Care Provider [phone] Encounter Details Date Type Department Care Team (Late st Contact Info) Description 12/29/2024 Telephone [facility] MEDICINE [address] [place] [address] Macie Mcgregor RN Social History Tobacco Use [facility] [address] [place] [address] Lana Couch FNP [address] [place] [address] 03/18/2025 10:00 AM EDT Office Visit [facility] MEDICINE [address] [place] [address] Anil Metzger MD [address] [place] [address] 03/25/2025 2:30 PM EDT Office Visit [facility] MEDICINE [address] [place] [address] Joe De Leon MD [address] [place] [address] documented as of this encounter Visit Diagnoses Not on filedocumented in this encounter Additional Health Concerns Assessment Noted Time PHQ-9 Depression Total Score: 0 05/29/20 11:15 AM EDT documented as of this encounter Care Teams Pcmh Specialist Relationship Specialty Start Date End Date Lana Couch FNP [address] [place] [address] PCP - General Family Medicine 01/28/23 documented as of this encounter
--- NOTE | 2025-03-10 14:41 | MHC.OFFVIS ---
Vital Signs 03/10/25 14:42 Height 5 ft 8 in Weight 219 lb BMI 33.3 Intake Visit Reasons: Preop RT RTC repair 03/16/25 NE Intake Note: Ananda is a 60 year old - hand dominant male who presents today for a pre op appointment for his right rotator cuff repair 03/16/25 NE. Patient was sized for the ultra sling. Patient was given the pain management form to sign with pendulum exercises. Allergies No Known Allergies Allergy (Verified 03/10/25 14:42) HPI HPI Preop RT RTC repair 03/16/25 NE: Details: Mr. Coles is a 60-year-old right-hand dominant male who presents to the office today for his routine preoperative history and physical examination pending right shoulder rotator cuff repair scheduled on 03/16/[address] Barcenas[address] [facility] Medical History (Updated 02/28/25 @ 10:50 by Britney Greene RN) Wears dentures Recent bereavement Back pain History of fracture of ankle Acute respiratory failure with hypoxia Knee pain Skin lesion Obesity Tobacco use Cellulitis Atopic dermatitis Opioid dependence Viral hepatitis C Rupture of rotator cuff of shoulder Orthopedic hardware present Opioid abuse Depression Anxiety Lumbar radiculopathy History of alcohol abuse Chronic pain Surgical History (Updated 02/28/25 @ 10:26 by Britney Greene RN) History of surgery History of repair of rotator cuff Family History Father No problems noted. Mother No problems noted. Social History (Updated 02/28/25 @ 10:50 by Britney Greene RN) Household Members Other:: step sister Housing: Apartment Are you a primary rn acute care to a significant other at home: No Do you presently have visiting nurse or other home services: No Patient Tobacco Use Status: Current everyday Tobacco user Tobacco use type: Cigarette Cigarettes Per Day: 3 Second Hand Smoke Exposure: No Substance Use Type: Opiates Current occupational status: unemployed Review of Systems Const All systems reviewed & are unremarkable except as noted in HPI and below Physical Exam Vital Signs: BMI result Body Mass Index 33.3 Const General: cooperative, healthy appearing, comfortable, no acute distress, well developed, alert and awake Orientation/consciousness: patient oriented x3 HEENT Head: Yes normal to inspection, Yes normocephalic and Yes atraumatic Eyes General: appearance normal, both eyes and all related structures Neck Neck: Yes normal visual inspection and Yes no lymphadenopathy Resp Effort & Inspection: normal respiratory effort and able to speak in complete sentences Cardio Rate: regular rate Peripheral pulses: Peripheral pulses 2+ throughout GI Inspection: Yes normal to inspection Palpation (GI): Soft to palpation Skin General skin exam: no rashes or lesions noted Neuro General: patient oriented x3 Extrem Other: 4/5 empty can 4-/5 lift off 45 deg passive ER Psych Mental Status: mental status grossly normal Assessment & Plan Assessment & Plan (1) Rotator cuff tear, right: Code(s): M75.101 - Unspecified rotator cuff tear or rupture of right shoulder, not specified as traumatic Category: Medical Plan Mr. Coles is a 60-year-old right-hand dominant male who presents to the office today for his routine preoperative history and physical examination pending right shoulder rotator cuff repair scheduled on 03/16/[address] Barcenas. I discussed in detail the procedure and what to expect pre and post operatively. We discussed the risks, benefits and alternatives to the surgery as well as the rehabilitation course. The risks; which include, but are not limited to infection, bleeding, nerve injury, ongoing pain, swelling, and stiffness, perioperative risk of injury to bones and soft tissues, and blood clots. I?ve answered all questions and with their understanding they have consented to move forward with right shoulder rotator cuff repair with Dr. Barcenas. Patient would like his postoperative pain medication sent to the [facility] pharmacy on the day of surgery. Physical therapy order has been placed while the office today with instruction with the patient calling to make an appointment within the 1st week postoperatively. Physical therapy business card was also provided to the patient attached to his postoperative instructions. Sling will be obtained in the operating room for correct sizing. Patient is going to have his friend Ananda pick him up from surgery. Please call him once patient reaches the PACU as it takes this friend 35 minutes to arrive at the hospital. His phone number is [phone]. Coding Level of Care Code Global (98653) Diagnoses Rotator cuff tear, right M75.101
[2025-03-10 14:42] VITALS: BMI 33.3
== END 2025-03-10 14:59 | disposition home or self-care (01) ==
LOC: HO.HOS 14:08
PROVIDERS: PCP Registered Nurse; Visit Provider Physician Assistant
DX: M75.101 Unspecified rotator cuff tear or rupture of right shoulder, not specified as traumatic (principal)
CPT/HCPCS: 99024

== ENCOUNTER → 2025-03-10 14:07 | Outpatient (BNVA) | payer MEDICAID, SELFPAY | PROVIDERS: PCP Registered Nurse; Visit Provider Physician Assistant | DX: Z47.89 Encounter for other orthopedic aftercare (principal); Z98.890 Other specified postprocedural states | CPT/HCPCS: 99212 ==

== ENCOUNTER 2025-03-16 06:11 | Day surgery (SDC) | payer MEDICAID, SELFPAY ==
[2025-02-28 10:10] VITALS: BP 136/90; PULSE 98; RESP 16; O2SAT 94; BMI 33.3
--- OUTSIDE RECORDS SUMMARY | 2025-02-28 10:38 | XMS_ITS | Encounter Summary ---
Author Organization [employer] Address 75 [facility] 7t [place] [address] Care Team Providers Care Forestry Aide Name Role Phone Lana Couch Primary Care Provider [phone] Reason for Visit * Reason Onset Date Comments Pt1 05/16/2023 Encounter Details Date Type Department Care Team (Late st Contact Info) Description 05/16/2023 Telephone [facility] MEDICINE [address] [place] [address] Lana Couch FNP [address] [place] [address] Pt1 Social History Tobacco Use Types Packs/Day [...] Hafsa Coello - 05/16/2023 2:00 PM EDT Automation Controls Expert left message for pt stating to call PT1 today to schedule pickup for 05/20/23. Per PT1 policy you must call at least 3 days in advance to schedule transportation. * Telephone Encounter - Hafsa Coello - 05/16/2023 1:58 PM EDT Patient will recieve approval / denial letter via mail. PT-1 Request [id number] [address] [address] * Telephone Encounter - Carly Brown - 05/16/2023 1:02 PM EDT Tc from pt requesting a pt1 Location: [address] [place] [address] Specialty: Urology Date&Time: 05/20/23 Crochet Machine Operator: no * Telephone Encounter - Carly Brown - 05/16/2023 12:52 PM EDT Tc from pt requesting a pt1 Location: [address] [place] [address] Specialty: Urology Date&Time: 05/20/23 Crochet Machine Operator: no documented in this encounter Plan of Treatment Upcoming Encounters Date Type Department Care Team (Late st Contact Info) Description 03/14/2025 1:15 PM EDT Office Visit [facility] MED & PEDS [address] [place] [address] Lana Couch FNP 505 [place] [address] 03/18/2025 10:00 AM EDT Office Visit [facility] MEDICINE [address] [place] [address] Anil Metzger MD [address] [place] [address] 03/25/2025 2:30 PM EDT Office Visit [address] [address] Joe De Leon MD 230 [place] [address] documented as of this encounter Visit Diagnoses Not on filedocumented in this encounter Care Teams Forestry Aide Relationship Specialty Start Date End Date Lana Couch FNP [address] [place] [address] PCP - General Family Medicine 01/28/23 documented as of this encounter
--- OUTSIDE RECORDS SUMMARY | 2025-02-28 10:38 | XMS_ITS | Encounter Summary ---
Author Organization [employer] Address 75 [facility] 7t [place] [address] Care Team Providers Care Microbiology Lab Analyst Name Role Phone Lana Couch Primary Care Provider [phone] Reason for Visit * Reason Onset Date Comments Pt1 12/31/2022 Encounter Details Date Type Department Care Team ([facility] st Contact Info) Description 12/31/2022 Telephone [facility] MEDICINE [address] [place] [address] Lana Couch FNP [address] [place] [address] Pt1 Social History Tobacco Use Types Packs/Day [...] requesting a PT1 PT1 Name of facility: [facility] Specialty: Appt Location: [address] [place] [address] Date: n/a Time: n/a fax: n/a Phone: n/a wheelchair: n/a Medical Unit Secretary: n/a documented in this encounter Plan of Treatment Upcoming Encounters Date Type Department Care Team (Late st Contact Info) Description 03/14/2025 1:15 PM EDT Office Visit [facility] MED & PEDS 505 [place] [address] Lana Couch FNP 505 [place] [address] 03/18/2025 10:00 AM EDT Office Visit [facility] MEDICINE 230 [place] [address] Anil [place]zger MD [address] [place] [address] 03/25/2025 2:30 PM EDT Office Visit [facility] [address] [place] [address] Joe De Leon MD [address] [place] [address] documented as of this encounter Visit Diagnoses Diagnosis Opioid abuse (CMS/[facility]) Nondependent opioid abuse, unspecified documented in this encounter Care Teams Microbiology Lab Analyst Relationship Specialty Start Date End Date Lana Couch FNP [address] [place] [address] PCP - General Family Medicine 01/28/23 documented as of this encounter
--- OUTSIDE RECORDS SUMMARY | 2025-02-28 10:38 | XMS_ITS | Encounter Summary ---
Author Organization [employer] Address 75 [facility] 7t [place] [address] Care Team Providers Care Shot Peen Operator Name Role Phone Lana Couch Primary Care Provider [phone] Reason for Visit * Reason Onset Date Comments Verbal Orders 02/04/2023 Encounter Details Date Type Department Care Team ([facility] st Contact Info) Description 02/04/2023 Telephone [facility] MEDICINE [address] [place] [address] Lana Couch FNP [address] [place] [address] Verbal Orders Social History Tobacco Use Types [...] - 02/04/2023 11:43 AM EDT Tc from [facility] requesting some Verbal orders regarding pt Please contact at [phone] documented in this encounter Plan of Treatment Upcoming Encounters Date Type Department Care Team (Late st Contact Info) Description 03/14/2025 1:15 PM EDT Office Visit [facility] MED & PEDS [address] [place], [place] [phone] Lana Couch FNP [address] [place], [place] 03/18/2025 10:00 AM EDT Office Visit [facility] MEDICINE [address] [place] [address] Anil Metzger MD [address] [place] [address] 03/25/2025 2:30 PM EDT Office Visit [facility] MEDICINE [address] [place] [address] Joe De Leon MD [address] [place] [address] documented as of this encounter Visit Diagnoses Not on filedocumented in this encounter Care Teams Shot Peen Operator Relationship Specialty Start Date End Date Lana Couch FNP [address] [place] [address] PCP - General Family Medicine 01/28/23 documented as of this encounter
--- OUTSIDE RECORDS SUMMARY | 2025-02-28 10:38 | XMS_ITS | Encounter Summary ---
Author Organization [employer] Address 75 [facility] 7t [place] [address] Care Team Providers Care Sandal Parts Assembler Name Role Phone Lana Couch GRECIA Primary Care Provider [phone] Reason for Visit * Reason Onset Date Comments Med Refill 12/27/2024 Encounter Details Date Type Department Care Team (Late st Contact Info) Description 12/27/2024 Refill [facility] MEDICINE [address] [place] [address] Macie Mcgregor RN Uncomplicated opioid dependence (CMS/HCC) [...] t he electric, gas, oil or water [employer] threatened to shut off services in your [...] Description 03/14/2025 1:15 PM EDT Office Visit [facility] MED & PEDS [address] [place] [address] Lana Couch FNP 505 [place] [address] 03/18/2025 10:00 AM EDT Office Visit [facility] MEDICINE [address] [place] [address] Anil Metzger MD [address] [place] [address] 03/25/2025 2:30 PM EDT Office Visit [facility] MEDICINE [address] [place] [address] Joe De Leon MD [address] [place] [address] documented as of this encounter Visit Diagnoses Diagnosis Uncomplicated opioid dependence (CMS/HCC) documented in this encounter Additional Health Concerns Assessment Noted Time PHQ-9 Depression Total Score: 0 05/29/20 11:15 AM EDT documented as of this encounter Care Teams Sandal Parts Assembler Relationship Specialty Start Date End Date Lana Couch FNP [address] [place] [address] PCP - General Family Medicine 01/28/23 documented as of this encounter
--- OUTSIDE RECORDS SUMMARY | 2025-02-28 10:38 | XMS_ITS | Encounter Summary ---
Author Organization [employer] Address 75 [facility] 7t [place] [address] Care Team Providers Care Lift Team Technician Name Role Phone Lana Couch Primary Care Provider [phone] Reason for Visit * Reason Onset Date Comments Nurse Triage 12/15/2023 Encounter Details Date Type Department Care Team ([facility] st Contact Info) Description 12/15/2023 Telephone [facility] MED & PEDS [address] [place], [place] [phone] Lana Couch FNP [address] [place] [address] Nurse Triage Social History Tobacco Use Types [...] with others, in a hotel, in a alf, living outside on the street, on a [...] Dorman - 12/31/2023 7:38 AM EDT Reviewed [facility] ED notes, there was concern for possible pulmonary nodules. Pt will require ED follow up visit to discuss next steps for imaging regarding lungs and shoulder. Thank you. * Telephone Encounter - Vee Lovelace RN - 12/19/2023 1:24 PM EST [facility] ED notes received and scanned into chart. Pt informed of need to be seen prior to MRI being ordered. Pt agrees to sick appt next week. * Telephone Encounter - GRECIA Dorman - 12/19/2023 12:02 PM EST Please call pt to let him know that we are still waiting on ED note from [facility]. If sufficient documentation, insurance may approve MRI [...] not yet received. Faxed ED request to [facility] again and will scan into chart once it arrives for PCP review. * Telephone Encounter - Yara Geller - 12/17/2023 2:51 PM EST Tc from pt requesting MR order for shoulder pain. * Telephone Encounter - GRECIA Dorman - 12/16/2023 9:05 PM EST I will need some degree of documentation in order for further imaging to be ordered/approved through insurance. If [facility] ED note sufficient, I may be able to place order directly. [facility] * Telephone Encounter - Ericka Molina LPN - 12/15/2023 2:53 PM EST Please obtain notes from [facility] ED date 12/13/23. No appt scheduled at this time patient reports xray was completed at time of visit. * Telephone Encounter - Ericka Molina LPN - 12/15/2023 2:52 PM EST Triage call returned to patient for reported shoulder pain. Patient reports that he fell 2 days agowas seen in [facility] ED and had xray completed. is in a sling and reports i know my body i did not break anything i tore something in my shoulder . No ED report on file at time of call. No PCPor Team appts available. Patient does not want any further advice and request only a referral for MRI. Unable to complete triage at time of call. [facility] ED records requested. No appts booked as [...] accepted this outcome Please contact pt @ [phone] documented in this encounter Plan of Treatment Upcoming Encounters Date Type Department Care Team (Late st Contact Info) Description 03/14/2025 1:15 PM EDT Office Visit [facility] MED & PEDS [address] [place] [address] Lana Couch FNP [address] [place] [address] 03/18/2025 10:00 AM EDT Office Visit [facility] MEDICINE [address] [place] [address] Anil Metzger MD [address] [place] [address] 03/25/2025 2:30 PM EDT Office Visit [facility] MEDICINE [address] [place] [address] Joe De Leon MD [address] [place] [address] documented as of this encounter Visit Diagnoses Not on filedocumented in this encounter Additional Health Concerns Assessment Noted Time PHQ-9 Depression Total Score: 0 05/29/20 11:15 AM EDT documented as of this encounter Care Teams Lift Team Technician Relationship Specialty Start Date End Date Lana Couch FNP [address] [place] [address] PCP - General Family Medicine 01/28/23 documented as of this encounter
--- OUTSIDE RECORDS SUMMARY | 2025-02-28 10:38 | XMS_ITS | Encounter Summary ---
Author Organization [employer] Address 75 [facility] 7t [place] [address] Care Team Providers Care Childcare Worker Name Role Phone Lana Couch GRECIA Primary Care Provider [phone] Encounter Details Date Type Department Care Team (Late st Contact Info) Description 12/29/2024 Telephone [facility] MEDICINE [address] [place] [address] Macie Mcgregor RN Social History Tobacco Use [...] Description 03/14/2025 1:15 PM EDT Office Visit [facility] MED & PEDS [address] [place] [address] Lana Couch FNP 505 [place] [address] 03/18/2025 10:00 AM EDT Office Visit [facility] MEDICINE [address] [place] [address] Anil [place]zger MD [address] [place] [address] 03/25/2025 2:30 PM EDT Office Visit [facility] MEDICINE [address] [place] [address] Joe De Leon MD [address] [place] [address] documented as of this encounter Visit Diagnoses Not on filedocumented in this encounter Additional Health Concerns Assessment Noted Time PHQ-9 Depression Total Score: 0 05/29/20 11:15 AM EDT documented as of this encounter Care Teams Childcare Worker Relationship Specialty Start Date End Date Lana Couch FNP [address] [place] [address] PCP - General Family Medicine 01/28/23 documented as of this encounter
--- OUTSIDE RECORDS SUMMARY | 2025-02-28 10:38 | XMS_ITS | Encounter Summary ---
Author Organization [employer] Address [address] [facility] 7t [place] [address] Care Team Providers Care Nurse Sitter Name Role Phone Lana Couch Primary Care Provider [phone] Encounter Details Date Type Department Care Team (Late st Contact Info) Description 02/07/2023 Orders Only [facility] MEDICINE [address] [place], [place] [phone] Ying Rudolph RN Social History Tobacco Use [...] Description 03/14/2025 1:15 PM EDT Office Visit [facility] CHC MED & PEDS [address] [place] [address] Lana Couch FNP [address] [place], [place] [phone] 03/18/2025 10:00 AM EDT Office Visit [facility] MEDICINE [address] [place], [place] [phone] Anil Metzger MD [address] [place], [place] [phone] 03/25/2025 2:30 PM EDT Office Visit [facility] MEDICINE [address] [place], [place] [phone] Joe De Leon MD [address] [place], [place] [phone] documented as of this encounter Visit Diagnoses Not on filedocumented in this encounter Care Teams Nurse Sitter Relationship Specialty Start Date End Date Lana Couch FNP [address] [place] [phone] PCP - General Family Medicine 01/28/23 documented as of this encounter
--- OUTSIDE RECORDS SUMMARY | 2025-02-28 10:38 | XMS_ITS | Encounter Summary ---
Author Organization [employer] Address [address] [facility] 7t [place] [address] Care Team Providers Care Director Of Group Counseling Program Name Role Phone Lana Couch Primary Care Provider [phone] Reason for Visit * Reason Onset Date Comments Pre op 01/28/2025 Encounter Details Date Type Department Care Team (Late st Contact Info) Description 01/28/2025 Telephone [facility] MEDICINE [address] [place] [address] Lana Couch FNP [address] [place], [place] [phone] Pre op Social History Tobacco Use Types [...] with others, in a hotel, in a intermediate, living outside on the street, on a [...] Yes Surgeon's name: Dr.Noah Barcenas Facility name: [facility] Surgeon's office number: [phone] Surgeon's office fax number: [phone] Contact name (person you spoke with): Leann Last office note from surgeon requested: Yes Send Message to Sharon Zheng and Ricardo Javier Pt was Cleared by [facility] Cardiology. Contact Leann at [phone] documented in this encounter Plan of Treatment Upcoming Encounters Date Type Department Care Team (Late st Contact Info) Description 03/14/2025 1:15 PM EDT Office Visit [facility] CHC MED & PEDS [address] [place] [address] Lana Couch, GRECIA [address] [place] [address] 03/18/2025 10:00 AM EDT Office Visit [facility] MEDICINE [address] [place] [address] Anil Metzger MD [address] [place], [place] [phone] 03/25/2025 2:30 PM EDT Office Visit [facility] MEDICINE [address] [place], [place] [phone] Joe De Leon MD [address] [place] [address] documented as of this encounter Visit Diagnoses Not on filedocumented in this encounter Additional Health Concerns Assessment Noted Time PHQ-9 Depression Total Score: 0 05/29/20 11:15 AM EDT documented as of this encounter Care Teams Director Of Group Counseling Program Relationship Specialty Start Date End Date Lana Couch FNP [address] [place] [address] [phone] PCP - General Family Medicine 01/28/23 documented as of this encounter
--- OUTSIDE RECORDS SUMMARY | 2025-02-28 10:39 | XMS_ITS | Encounter Summary ---
Author Organization [employer] Address [address] [facility] 7t [place] [address] Care Team Providers Care Composing Machine Operator Name Role Phone Lana Couch Primary Care Provider Reason for Visit * Reason Onset Date Comments Letter for School/Work 05/05/2023 Encounter Details Date Type Department Care Team ([facility] st Contact Info) Description 05/05/2023 Telephone [facility] MEDICINE [address] [place] [address] Lana Couch FNP [address] [place] [address] Letter for School/Work Social History Tobacco Use [...] pt medical conditions. Please contact pt at [phone] documented in this encounter Plan of Treatment Upcoming Encounters Date Type Department Care Team (Late st Contact Info) Description 03/14/2025 1:15 PM EDT Office Visit [facility] CHC MED & PEDS [address] [place], [place] [phone] Lana Couch FNP 505 [place] [address] 03/18/2025 10:00 AM EDT Office Visit [facility] MEDICINE [address] [place] [address] Anil Metzger MD [address] [place] [address] 03/25/2025 2:30 PM EDT Office Visit [address] [address] Joe De Leon MD [address] [place] [address] documented as of this encounter Visit Diagnoses Not on filedocumented in this encounter Care Teams Composing Machine Operator Relationship Specialty Start Date End Date Lana Couch FNP [address] [place] [phone] PCP - General Family Medicine 01/28/23 documented as of this encounter
--- OUTSIDE RECORDS SUMMARY | 2025-02-28 10:39 | XMS_ITS | Encounter Summary ---
Author Organization [employer] Address [address] [facility] 7t [place] [address] Care Team Providers Care Power Shovel Engineer Name Role Phone Lana Couch GRECIA Primary Care Provider [phone] Encounter Details Date Type Department Care Team (Late st Contact Info) Description 2025 Telephone [facility] MEDICINE [address] [place], [place] [phone] Anil Metzger MD [address] [place], [place] [phone] Social History Tobacco Use Types Packs/Day Years [...] with others, in a hotel, in a senior living, living outside on the street, on a [...] encounter Miscellaneous Notes * Telephone Encounter - Anil Metzger MD - 2025 12:[address] Garcia recently saw Ananda for a pre-op schedule. She asked that I contact Ananda to review pre, gus and post op Suboxone. I LVM. If I don't hear from him, I will try to reach next week. documented in this encounter Plan of Treatment Upcoming Encounters Date Type Department Care Team (Late st Contact Info) Description 03/14/2025 1:15 PM EDT Office Visit [facility] CHC MED & PEDS 505 [place] [address] Lana Couch FNP [address] [place] [address] 03/18/2025 10:00 AM EDT Office Visit [facility] MEDICINE [address] [place] [address] Anil Metzger MD [address] [place] [address] 03/25/2025 2:30 PM EDT Office Visit [facility] MEDICINE [address] [place] [address] Joe De Leon MD [address] [place] [phone] documented as of this encounter Visit Diagnoses Not on filedocumented in this encounter Additional Health Concerns Assessment Noted Time PHQ-9 Depression Total Score: 0 05/29/20 23 11:15 AM EDT documented as of this encounter Care Teams Power Shovel Engineer Relationship Specialty Start Date End Date Lana Couch FNP [address] [place] [address] PCP - General Family Medicine 01/28/23 documented as of this encounter
--- OUTSIDE RECORDS SUMMARY | 2025-02-28 10:39 | XMS_ITS | Encounter Summary ---
Author Organization [employer] Address [address] [facility] 7t [place] [address] Care Team Providers Care Underground Miner Name Role Phone Lana Couch Primary Care Provider [phone] Encounter Details Date Type Department Care Team (Late st Contact Info) Description 03/24/2023 Orders Only [facility] MEDICINE [address] [place] [address] Lana Couch FNP [address] [place] [address] Social History Tobacco Use Types Packs/Day Years [...] 1:15 PM EDT Office Visit [facility] CHC MED & PEDS [address] [place] [address] Lana Couch FNP [address] [place] [address] 03/18/2025 10:00 AM EDT Office Visit [facility] MEDICINE [address] [place] [address] Anil Metzger MD [address] [place] [address] 03/25/2025 2:30 PM EDT Office Visit [facility] MEDICINE [address] [place] [address] Joe De Leon MD [address] [place] [address] documented as of this encounter Visit Diagnoses Not on filedocumented in this encounter Care Teams Underground Miner Relationship Specialty Start Date End Date Lana Couch FNP [address] [place] [address] PCP - General Family Medicine 01/28/23 documented as of this encounter
--- OUTSIDE RECORDS SUMMARY | 2025-02-28 10:40 | XMS_ITS | Encounter Summary ---
Author Organization [employer] Address [address] [facility] [address]t [place] [address] Care Team Providers Care Wellness Guide Name Role Phone Lana Couch Primary Care Provider [phone] Reason for Visit * Reason Onset Date Comments Call Back Request 10/09/2023 Encounter Details Date Type Department Care Team ([facility] st Contact Info) Description 10/09/2023 Telephone [facility] CHC MED & PEDS [address] [place], [place] [phone] Lana Couch FNP [address] [place] [address] Call Back Request Social History Tobacco Use [...] others, in a hotel, in a senior care, living outside on the street, on a [...] to message below. Please contact pt at [phone]. CHW Dori Braun placed outbound call to patient for follow up call on SDOH needs. No answer at this time. CHW LVM introducing herself from [facility] CM Department. Requested call back. CHW reinforced direct contact information or CM for any additional questions or concerns and extended clinic hours on Mondays and Wednesdays, and Walk-In Urgent Care Located in [facility]. Patient provided with after-hours line for [facility], , which offer night time triage service and option to transfer to outside solar sales consultant provider if needed. CHW will attempt another follow up call within 10 days.[id number] documented in this encounter Plan of Treatment Upcoming Encounters Date Type Department Care Team (Late st Contact Info) Description 03/14/2025 1:15 PM EDT Office Visit [facility] CHC MED & PEDS [address] [place] [address] Lana Couch FNP [address] [place] [address] 03/18/2025 10:00 AM EDT Office Visit [facility] MEDICINE [address] [place] [address] Anil Metzger MD [address] [place] [address] 03/25/2025 2:30 PM EDT Office Visit [facility] MEDICINE [address] [place], [place] [phone] Joe De Leon MD [address] [place] [address] documented as of this encounter Visit Diagnoses Not on filedocumented in this encounter Additional Health Concerns Assessment Noted Time PHQ-9 Depression Total Score: 0 05/29/20 11:15 AM EDT documented as of this encounter Care Teams Wellness Guide Relationship Specialty Start Date End Date Lana Couch FNP [address] [place] [phone] PCP - General Family Medicine 01/28/23 documented as of this encounter
--- OUTSIDE RECORDS SUMMARY | 2025-02-28 10:40 | XMS_ITS | Clinical Summary ---
Author Organization [employer] Address [address] [facility] 7[address] [place] [address] Care Team Providers Care Breastfeeding Peer Counselor Name Role Phone Lana Couch GRECIA Primary Care Provider [phone] Allergies No known active allergies Medications * [...] (Ventolin HFA) 108 (90 Base) MCG/ACT inhalerIndicatio ns:Tobacco use INHALE 2 PUFFS BY MOUTH EVERY 4 [...] with concern of possible pulm nodules during [facility] visit 12/31/23 Maintenance: Spiriva 1.25mcg/act, 2 puffs daily Rescue: albuterol PRN Referral to Pulm Abnormal electrocardiogram (ECG) (EKG) 4 Overview (11/24/2024): Dx: suspected CAD/diastolic CHF/EKG changes noted during hospitalization January: Referral to [facility] 08/26/24: [facility] Cards - Dr. Jacobo. Eval for abnormal [...] ambulation no swelling -requested today SAGAR-Delisa in [facility] to try to get record of last [...] as pharmacomtherapy, [facility] smoking cessation group, and [facility] pharmacy smoking cessation clinic -Recommended low-dose CT for lung cancer screening. Patient declines 11/24/2024 Assessment & Plan (08/28/2023 2:22 PM EST): -Currently smoking 1 ppd -Encouraged smoking cessation resources such as pharmacomtherapy, [facility] smoking cessation group, and [facility] pharmacy smoking cessation clinic Assessment & Plan (04/27/2023 8:33 PM EDT): -Currently smoking 1/2-1 ppd -Encouraged smoking cessation resources such as pharmacomtherapy, [facility] smoking cessation group, and [facility] pharmacy smoking cessation clinic Assessment [...] cont following with psych team -Referral to [facility] Derm team placed Assessment & Plan (12/31/2022 3:48 PM EDT): Prescribed Bactrim for cellulitis infection and hydrocortisone for surrounding areas with atopic dermatitis. Opioid dependence, uncomplicated 12/10/2022 Alcohol use disorder 09/10/2022 Assessment & Plan (11/24/2024 4:29 PM EST): Currently drinking approximately 10 nips per day Declines assistance with rehab on 11/24/2024, met with head men's golf coach Scheduled for [facility] appointment on 11/26/2024 Continues [...] Reviewed med safety and SE Referral to [facility] Pain Management placed 08/28/23 Referral to [facility] Pain Management place 05/23/24 Assessment & Plan (08/28/2023 2:18 PM EST): ?? MRI on 01/14/23 showed multilevel degenerative changes of the lumbar spine most severe at L3-L4 and L4-L5 ?? Soreness and pain in BLE, shared decision making to increase gabapentin to 800mg TID. Reviewed med safety and SE ?? Referral to [facility] Pain Management placed 08/28/23 Assessment & Plan (04/27/2023 8:39 PM EDT): Refill of gabapentin 600mg TID, reviewed med safety and SE Orthopedic hardware present 09/10/2022 Mixed anxiety and depressive disorder 10/25/2021 History of repair of rotator cuff 10/25/2021 Overview (02/15/2024): Followed by [facility] Ortho Per consult January 2024: Large massive RTC tear in setting of prior surgery > 10 years ago Plan to book surgery for RTC repair Assessment & Plan (05/23/2024 3:24 PM EDT): Pre-op completed 05/18/24. In need of cardiac clearance/eval prior to scheduling surgery Assessment & Plan (06/01/2023 9:07 AM EDT): With current chronic bilat shoulder pain Referral to [facility] Ortho on 05/30/23 History of hepatitis C [...] to his current residency [facility] given pt does not have a phone [...] -if no improvement will need to see pet food deboner if ongoing symptoms. Class 1 obesity 02/14/2023 [...] organization. Date Type Department Care Team Description 2025 Telephone [facility] MEDICINE [address] [place] [address] Anil Metzger MD 02/23/2025 9:45 AM EDT Office Visit [facility] MED & PEDS [address] [place] [address] Megan Garcia MD Tobacco use (Primary Dx); Preop examination; Opioid dependence, uncomplicated (CMS/HCC); Alcohol use disorder 02/23/2025 Travel 02/22/2025 Telephone [facility] MEDICINE [address] [place] [address] Palmer BarbaraSAGAR 02/18/2025 9:30 AM EDT Office Visit [facility] MEDICINE [address] [place] [phone] Anil Metzger MD Uncomplicated opioid dependence (CMS/HCC) (Primary Dx); Alcohol use disorder; Vapes nicotine containing substance; Cellulitis, unspecified cellulitis site; Seborrheic dermatitis 02/18/2025 Travel 02/15/2025 Patient Outreach [facility]INE [address] [place] [phone] David Marcial Recovery Supports 02/15/2025 Refill [facility] [address] [place] [phone] Macie Mcgregor RN Uncomplicated opioid dependence (CMS/HCC) 02/14/2025 Patient Outreach [facility] MEDICINE [address] [place] [phone] Fabrice Cantu Recovery Supports 02/14/2025 Telephone [facility] WALK-IN CENTER [address] [place] [address] Aditya Summers MD 02/02/2025 Refill [facility]EDS [address] [place], [place] [phone] Lana Couch FNP Acute pain of right shoulder 01/28/2025 Telephone [facility] MED[facility]INE [address] [place] [phone] Lana Couch FNP Pre op 01/21/2025 9:00 AM EDT Office Visit [address] [phone] Anil Metzger MD Opioid type dependence, continuous (CMS/HCC) (Primary Dx); Alcohol use disorder; Uncomplicated opioid dependence (CMS/HCC); Vapes nicotine containing substance 01/21/2025 Travel 01/14/2025 Refill [facility] MED[facility]INE [address] [place] [phone] Macie Mcgregor RN Uncomplicated opioid dependence (CMS/HCC) 01/03/2025 Patient Outreach [facility]INE [address] [place] [phone] Alfredo Coello Outreach/No Answer (F/u on possible inpatient detox treatment ) 12/31/2024 Telephone [facility] MEDICINE [address] [place] [address] Macie Mcgregor, JOHN 12/29/2024 Refill [facility] [address] [place] [address] Macie Mcgregor, JOHN Uncomplicated opioid dependence (CMS/HCC) 12/29/2024 Telephone [facility] [address] [place] [address] Macie Mcgregor, JOHN 12/27/2024 Refill [facility] [address] [place] [address] Macie Mcgregor RN Uncomplicated opioid dependence (CMS/HCC) 12/27/2024 Refill [facility] [address] [place] [address] Lana Couch FNP Cellulitis, unspecified cellulitis site; Uncomplicated opioid dependence (CMS/HCC) 12/24/2024 Population Health [facility] () Department [address] [place] [phone] Provider, Population Health Generic 12/22/2024 Telephone [facility] MEDICINE [address] [place] [phone] Lana Couch FNP 12/20/2024 Telephone [facility] PED[facility] [address] [place], [place] [phone] Sarika Escalante MA Chart Prep 12/20/2024 Refill [facility] [address] [place] [address] Macie Mcgregor RN Uncomplicated opioid dependence ([facility]/HCC) 12/08/2024 Telephone [facility]INE [address] [place] [phone] Anil Metzger MD 12/08/2024 Telephone [facility] [address] [place] [phone] Anil Metzger MD 12/03/2024 9:45 AM EST Office Visit [facility]INE [address] [place] [phone] Anil Metzger MD Uncomplicated opioid dependence (CMS/HCC) (Primary Dx); Alcohol use disorder; Vapes nicotine containing substance 12/03/2024 Travel 12/01/2024 Refill [facility] MED[facility]INE [address] [place], [place] [phone] Macie Mcgregor RN Uncomplicated opioid dependence (CMS/HCC) from Last 3 Months Immunizations Immunization Administration [...] Description 03/14/2025 1:15 PM EDT Office Visit [facility] [address] [place] [address] Lana Couch FNP [address] [place] [address] 03/18/2025 10:00 AM EDT Office Visit [facility] MEDICINE [address] [place] [phone] Anil Metzger MD [address] [place] [address] 03/25/2025 2:30 PM EDT Office Visit [facility]INE [address] [place] [phone] Joe De Leon MD [address] [place] [address] Health Maintenance Due Date Last Done Comments CT Colonography 1965 FIT DNA/Cologuard 1965 FIT 1965 FOBT 1965 Sigmoidoscopy 1965 Alcohol/Substance Use Screening 1977 Hepatitis A Vaccines (1 of 2 - Risk 2-dose series) 02/26/1984 Pneumococcal Vaccine: 50+ Years (1 of 2 - PCV) 02/26/1984 Zoster Vaccines (1 of 2) 2015 Colonoscopy 02/26/2020 2010 Colorectal Cancer Screening 02/26/2020 Depression Screening 05/29/2024 05/29/2023, 05/29/2023 COVID-19 Vaccine (4 - 2023-2 5 season) 2024 12/31/2022, 07/13/2021, 06/22/2021 Influenza Vaccine (#1) 2024 07/14/2013 SDOH Screening 09/24/2024 09/24/2023 Hepatitis B Vaccines (1 of 3 - Risk 3-dose series) 2025 RSV Patients and Patients Aged 60 years or older (1 - Risk 60-74 years 1-dose series) 2025 Tobacco Screening 11/24/2025 11/24/2024 Lipid Panel 03/01/2027 03/01/2022 DTaP/Tdap/Td Vaccines (2 - T d or Tdap) 09/01/2033 09/01/2023 HIV Screening Completed 04/07/2023, 01/12/2021 HIB Vaccines [...] Procedure Name Priority Date/Time Associated Diagnosis Comments PROTHROMBIN TIME-INR Routine 02/23/2025 10:28 AM EDT Preop examination CBC WITH AUTO DIFFERENTIAL Routine 02/23/2025 10:28 AM EDT Preop examination BASIC METABOLIC PANEL Routine 02/23/2025 10:28 AM EDT Preop examination POCT RONAK-14 URINE DRUG SCREEN Routine 02/18/2025 [...] Recently Relevant to Health Maintenance Results * (ABNORMAL) CBC auto differential (02/23/2025 10:28 AM EDT) White Blood Count 7.1 4.8 - 10.8 X10*3/uL [facility] Red Blood Count 3.99(L) 4.60 - 5.80 X10*6/uL [facility] Hemoglobin 14.5 14.0 - 18.0 g/dl [facility] Hematocrit 40.6(L) 42.0 - 52.0 % [facility] Mean Corpuscular Volume 101.8(H) 80.0 - 98.0 fL [facility] Mean Corpuscular Hemoglobin 36.3(H) 27.0 - 33.0 pg [facility] Mean Corpuscular HGB Conc 35.7 31.0 - 36.0 g/dl [facility] Red Cell Distribution Width 13.1 11.0 - 16.0 % [facility] Platelet Count 271 160 - 400 X10*3/uL [facility] Mean Platelet Volume 10.9 9.4 - 12.4 fL [facility] Neutrophils Percent Auto 44.7(L) 45 - 73 % [facility] Imm Gran Pct Auto 0.4 0.0 - 0.4 % [facility] Lymphocytes Percent Auto 34.4 20 - 40 % [facility] Monocytes Percent Auto 14.6(H) 2 - 11 % [facility] Eosinophils Percent Auto 5.2(H) 0 - 4 % [facility] Basophils Percent Auto 0.7 0 - 2 % [facility] NRBC Pct Auto 0.0 0.0 - 0.2 /100WBC [facility] Neutrophils Absolute Auto 3.2 2.0 - 8.3 x10*3/uL [facility] Imm Gran Abs Auto 0.03 0.00 - 0.03 X10*3/uL [facility] Lymphocytes Absolute Auto 2.4 1.2 - 4.9 X10*3/uL [facility] Monocytes Absolute Auto 1.0 0.1 - 1.2 X10*3/uL [facility] Eosinophils Absolute Auto 0.4 0.0 - 0.4 X10*3/uL [facility] Basophils Absolute Auto 0.1 0.0 - 0.2 X10*3/uL [facility] NRBC Abs Auto 0.000 0.0 - 0.012 X10*3/uL [facility] Blood Venous blood specimen / Unknown 02/23/2025 10:28 AM EDT 02/23/2025 2:49 PM EDT us Megan Garcia MD LAB BLOOD ORDERABLES Final Re sult [facility] [address] [place] [address] [phone] * Prothrombin Time-INR (02/23/2025 10:28 AM EDT) Prothrombin Time 11.1 10.9 - 12.4 SEC [facility] INTERNATIONAL NORM RATIO 1.0 0.9 - 1.1 [facility] Comment:INTERNATIONAL NORMAL IZED RATIO (INR) REFERENCE RANGES Reference RangeFor patients not on anticoagulant therapy: 0.9 - 1.1INR ranges for oral anticoagulanttherapy:For prevention and treatment of venous thrombosis and pulmonary embolism: 2.0 - 3.0For acute myocardial infarction with aspirin therapy: 2.0 - 3.0For acute myocardial infarction without aspirin therapy: 3.0 - 4.0For patients with mechanical prosthetic heart valves: 2.5 - 3.5 Blood Venous blood specimen / Unknown 02/23/2025 10:28 AM EDT 02/23/2025 2:49 PM EDT us Megan Garcia MD LAB BLOOD ORDERABLES Final Re sult [facility] [address] [place] [phone] * (ABNORMAL) Basic Metabolic Panel (02/23/2025 10:28 AM EDT) Sodium 142 135 - 145 mmol/L [facility] Potassium 3.8 3.3 - 5.1 mmol/L [facility] Chloride 113(H) 96 - 108 mmol/L [facility] Carbon Dioxide 20(L) 22 - 29 mmol/L [facility] Anion Gap 13 12 - 20 [facility] Urea Nitrogen (BUN) 10 9 - 16 mg/dL [facility] Creatinine, Serum 0.79 0.5 - 1.4 mg/dL [facility] Estimated Glomerular Filt Rate >60 [facility] Comment:Chronic Kidney Disea se: Estimated GFR < 60 mL/min/1.11v9Ggypop Kidney Disease: Estimated GFR < 15 mL/min/1.73m2 Glucose 98 60 - 115 mg/dL [facility] Calcium 8.9 8.4 - 10.2 mg/dL [facility] Blood Venous blood specimen / Unknown 02/23/2025 10:28 AM EDT 02/23/2025 2:49 PM EDT Megan Garcia MD LAB BLOOD ORDERABLES Final Re sult [facility] [address] [place] [address] [phone] * POCT RONAK-14 Urine Drug Screen (02/18/2025 [...] 9:46 AM EDT) Nordiazepam, GCMS Urine NEGATIVE [facility] Comment:REFERENCE RANGE: <50 ng/mL Oxazepam, GCMS Urine 124 [facility] Comment:REFERENCE RANGE: <50 ng/mL Lorazepam GCMS Urine NEGATIVE [facility] Comment:REFERENCE RANGE: <50 ng/mL Alprazolam, GCMS Urine NEGATIVE [facility] Comment:REFERENCE RANGE: <25 ng/mL Alphahydroxytriazolam, GCMS Ur NEGATIVE [facility] Comment:REFERENCE RANGE: <50 ng/mL Temazepam, GCMS Urine NEGATIVE [facility] Comment:REFERENCE RANGE: <50 ng/mL Alphahydroxymidazolam,GC MS Ur NEGATIVE [facility] Comment:REFERENCE RANGE: <50 ng/mL Aminoclonazepam, GCMS Urine NEGATIVE [facility] Comment:REFERENCE RANGE: <25 ng/mL Flurazepam Metabolite,GCMS Ur NEGATIVE [facility] Comment:REFERENCE RANGE: <50 ng/mL Benzodiazepines Comments SEE NOTE [facility] Comment:This drug testing is for medical [...] their analyticalperformance characteristics have been determined by [employer]. It has not been cleared or approved by the FDA.This assay has been validated pursuant to the CLIAregulations and is used for clinical purposes.Healthcare Providers needing Interpretation assistance,please contact us at [phone] ( ) M-F,8am to 10pm ESTTHIS TEST PERFORMED AT:[facility] [address] [phone] DIRECTOR: DIGNA HOOKS MD Urine 01/21/2025 9:46 AM EDT 01/21/2025 11:45 AM EDT us Anil Metzger MD LAB URINE ORDERABLES Final Res ult [facility] [address] [place] [address] [phone] * HIV-1/2 Antigen and Antibodies, Fourth Generation, with Reflexes (04/07/2023 10:08 AM EDT) Pathologist [facility] HIV Antigen/Antibody, 4th Generation NON-REAC TIVE NON-REAC TIVE [employer] [facility] | [facility] Comment: HIV-1 antigen and HIV-1/HIV-2 antibodies were [...] ?? For additional information please refer to http://ITC.[employer]/faq/DVL745 (This link is being provided for informational/ educational purposes only.) The performance of this assay has not been clinically validated in patients less than 2 years old. Blood Venous blood specimen / Unknown 04/07/2023 10:08 AM EDT 04/07/2023 10:08 AM EDT Narrative [facility] - 04/13/2023 11:56 PM EDT FASTING:NO FASTING: NO Aditya Summers MD LAB BLOOD ORDERABLES Final Resul t [facility] [address], [place] [phone] [employer] [facility] [address] [place] [phone] * LIPID PANEL, STANDARD (03/01/2022 11:10 AM [...] ?? Didier FLORES et al. DANIEL. 2013;310(19): 3078-6119 ?? (http://education.[employer]/faq/KRR876) Non-HDL Cholesterol 105 <130 mg/dL (calc) [facility] Comment: For patients with diabetes plus 1 major ASCVD risk ?? factor, treating to a non-HDL-C goal of <100 mg/dL ?? (LDL-C of <70 mg/dL) is considered a therapeutic ?? option. Triglycerides 62 <150 mg/dL [facility] 03/01/2022 11:1 0 AM EDT Barbara Escobar PAPER STACKER LAB BLOOD ORDERABLES Final Res ult [facility] [address] * Colonoscopy (2010) Colonoscopy Normal Normal Historical Provider MD HEALTH MAINTENANCE Final Result from Last 3 Months or Most Recently Relevant to Health Maintenance Insurance Advance Directives Documents on File Type Date Recorded Patient Non Profit Job Titles Expl anation Advance Directives and Ari g Will 09/24/2024 9:34 AM Hippa Form Care Teams Breastfeeding Peer Counselor Relationship Specialty Start Date End Date Lana Couch FNP [address] [place] [phone] PCP - General Family Medicine 01/28/23"
--- OUTSIDE RECORDS SUMMARY | 2025-02-28 10:40 | XMS_ITS | Encounter Summary ---
Author Organization [employer] Address [address] [place] [address] Care Team Providers Care City Weighmaster Name Role Phone Lana Couch Primary Care Provider [phone] Reason for Visit * Reason Onset Date Comments Appointment Request 09/22/2023 Encounter Details Date Type Department Care Team (Late st Contact Info) Description 09/22/2023 Telephone [facility] [address] [place] [address] Lana Couch FNP [address] [place], [place] [phone] Appointment Request Social History Tobacco Use Types [...] Description 03/14/2025 1:15 PM EDT Office Visit [facility] [address] [place] [address] Lana Couch FNP [address] [place] [address] 03/18/2025 10:00 AM EDT Office Visit [facility] [address] [place] [phone] Anil Metzger MD [address] [place] [address] 03/25/2025 2:30 PM EDT Office Visit [facility] [address] [place] [address] Joe De Leon MD [address] [place] [address] documented as of this encounter Visit Diagnoses Not on filedocumented in this encounter Additional Health Concerns Assessment Noted Time PHQ-9 Depression Total Score: 0 05/29/20 11:15 AM EDT documented as of this encounter Care Teams City Weighmaster Relationship Specialty Start Date End Date Lana Couch FNP [address] [place] [address] PCP - General Family Medicine 01/28/23 documented as of this encounter
--- OUTSIDE RECORDS SUMMARY | 2025-02-28 10:40 | XMS_ITS | Encounter Summary ---
Author Organization [employer] Address [address] [facility] 7t [place] [address] Care Team Providers Care Wire Mesh Knitter Name Role Phone Lana Couch GRECIA Primary Care Provider [phone] Reason for Visit * Reason Comments Pre-op Exam Encounter Details Date Type Department Care Team (Latest Contact Info) Description 02/23/2025 9:45 AM EDT Office Visit [facility] MED & PEDS [address] [place], [place] [phone] Megan Gacria MD [address] [place] [address] Tobacco use (Primary Dx); Preop examination; Opioid dependence, uncomplicated (CMS/HCC); Alcohol use disorder Social History Tobacco Use Types Packs/Day Years [...] with others, in a hotel, in a half-way, living outside on the street, on a [...] Description 03/14/2025 1:15 PM EDT Office Visit [facility] MED & PEDS [address] [place] [address] Lana Couch FNP [address] [place] [address] 03/18/2025 10:00 AM EDT Office Visit [facility] MEDICINE [address] [place] [address] Anil Metzger MD [address] [place] [address] 03/25/2025 2:30 PM EDT Office Visit [facility] MED[facility]INE [address] [facility] [place] [address] Joe DeL eon MD [address] [place] [address] documented as of this encounter Procedures Procedure Name Priority Date/Time Associated Diagnosis Comments CBC WITH AUTO DIFFERENTIAL Routine 02/23/2025 10:28 AM EDT Preop examination PROTHROMBIN TIME-INR Routine 02/23/2025 10:28 AM EDT Preop examination BASIC METABOLIC PANEL Routine 02/23/2025 10:28 AM EDT Preop examination documented in this encounter Results * Prothrombin Time-INR (02/23/2025 10:28 AM EDT) Prothrombin Time 11.1 10.9 - 12.4 SEC [facility] INTERNATIONAL NORM RATIO 1.0 0.9 - 1.1 [facility] Comment:INTERNATIONAL NORMAL IZED RATIO (INR) [...] MD LAB BLOOD ORDERABLES Final Re sult [facility] [address] [place] [address] [phone] * (ABNORMAL) CBC auto differential (02/23/2025 10:28 AM EDT) White Blood Count 7.1 4.8 - 10.8 X10*3/uL [facility] Red Blood Count 3.99(L) 4.60 - 5.80 X10*6/uL [facility] Hemoglobin 14.5 14.0 - 18.0 g/dl [facility] Hematocrit 40.6(L) 42.0 - 52.0 % [facility] Mean Corpuscular Volume 101.8(H) 80.0 - 98.0 fL [facility] Mean Corpuscular Hemoglobin 36.3(H) 27.0 - 33.0 pg [facility] Mean Corpuscular HGB Conc 35.7 31.0 - 36.0 g/dl [facility] Red Cell Distribution Width 13.1 11.0 - 16.0 % [facility] Platelet Count 271 160 - 400 X10*3/uL [facility] Mean Platelet Volume 10.9 9.4 - 12.4 fL [facility] Neutrophils Percent Auto 44.7(L) 45 - 73 % [facility] Imm Gran Pct Auto 0.4 0.0 - 0.4 % [facility] Lymphocytes Percent Auto 34.4 20 - 40 % [facility] Monocytes Percent Auto 14.6(H) 2 - 11 % [facility] Eosinophils Percent Auto 5.2(H) 0 - 4 % [facility] Basophils Percent Auto 0.7 0 - 2 % [facility] NRBC Pct Auto 0.0 0.0 - 0.2 /100WBC [facility] Neutrophils Absolute Auto 3.2 2.0 - 8.3 x10*3/uL [facility] Imm Gran Abs Auto 0.03 0.00 - 0.03 X10*3/uL [facility] Lymphocytes Absolute Auto 2.4 1.2 - 4.9 X10*3/uL [facility] Monocytes Absolute Auto 1.0 0.1 - 1.2 X10*3/uL [facility] Eosinophils Absolute Auto 0.4 0.0 - 0.4 X10*3/uL [facility] Basophils Absolute Auto 0.1 0.0 - 0.2 X10*3/uL [facility] NRBC Abs Auto 0.000 0.0 - 0.012 X10*3/uL [facility] Blood Venous blood specimen / Unknown 02/23/2025 10:28 AM EDT 02/23/2025 2:49 PM EDT Megan Garcia MD LAB BLOOD ORDERABLES Final Re sult Performing Organization Address [facility] Co de Phone Number [facility] [address] [place] [phone] * (ABNORMAL) Basic Metabolic Panel (02/23/2025 10:28 AM EDT) Sodium 142 135 - 145 mmol/L [facility] Potassium 3.8 3.3 - 5.1 mmol/L [facility] Chloride 113(H) 96 - 108 mmol/L [facility] Carbon Dioxide 20(L) 22 - 29 mmol/L [facility] Anion Gap 13 12 - 20 [facility] Urea Nitrogen (BUN) 10 9 - 16 mg/dL [facility] Creatinine, Serum 0.79 0.5 - 1.4 mg/dL [facility] Estimated Glomerular Filt Rate >60 [facility] Comment:Chronic Kidney Disea se: Estimated GFR < 60 mL/min/1.40y5Gffckp Kidney Disease: Estimated GFR < 15 mL/min/1.73m2 Glucose 98 60 - 115 mg/dL [facility] Calcium 8.9 8.4 - 10.2 mg/dL [facility] Blood Venous blood specimen / Unknown 02/23/2025 10:28 AM EDT 02/23/2025 2:49 PM EDT Megan Garcia MD LAB BLOOD ORDERABLES Final Re sult Performing Organization Address [facility] Co de Phone Number [facility] [address] [place] [phone] documented in this encounter Visit Diagnoses Diagnosis Tobacco use- Primary Preop examination Unspecified pre-operative examination Opioid dependence, uncomplicated (CMS/HCC) Alcohol use disorder documented in this encounter Additional Health Concerns Assessment Noted Time PHQ-9 Depression Total Score: 0 05/29/20 11:15 AM EDT documented as of this encounter Care Teams Wire Mesh Knitter Relationship Specialty Start Date End Date Lana Couch FNP [address] [place] [address] PCP - General Family Medicine 01/28/23 documented as of this encounter
--- OUTSIDE RECORDS SUMMARY | 2025-02-28 10:40 | XMS_ITS | Encounter Summary ---
Author Organization [employer] Address [address] [facility] 7[address] [place] [address] Care Team Providers Care Dietitian Research Name Role Phone Lana Couch GRECIA Primary Care Provider [phone] Encounter Details Date Type Department Care Team [...] Description 03/14/2025 1:15 PM EDT Office Visit [facility] MED & PEDS [address] [place] [address] Lana Couch FNP [address] [place] [address] 03/18/2025 10:00 AM EDT Office Visit [facility] MEDICINE [address] [place] [address] Anil Metzger MD [address] [place] [address] 03/25/2025 2:30 PM EDT Office Visit [address] [address] Joe De Leon MD [address] [place] [phone] documented as of this encounter Visit Diagnoses Not on filedocumented in this encounter Additional Health Concerns Assessment Noted Time PHQ-9 Depression Total Score: 0 05/29/20 23 11:15 AM EDT documented as of this encounter Care Teams Dietitian Research Relationship Specialty Start Date End Date Lana Couch FNP [address] [place] [phone] PCP - General Family Medicine 01/28/23 documented as of this encounter
--- OUTSIDE RECORDS SUMMARY | 2025-02-28 10:40 | XMS_ITS | Encounter Summary ---
Author Organization [employer] Address [address] [facility] 7t [place] [address] Care Team Providers Care Etl Software Engineer Name Role Phone Lana Couch GRECIA Primary Care Provider [phone] Reason for Visit * Reason Comments Med Refill Encounter Details Date Type Department Care Team (Late st Contact Info) Description 09/02/2024 Refill [facility] [address] [place], [place] [phone] Aditya Summers MD [address] [place], [place] [phone] Social History Tobacco Use Types Packs/Day Years [...] with others, in a hotel, in a skilled nursing, living outside on the street, on a [...] Description 03/14/2025 1:15 PM EDT Office Visit [facility] CHC MED & PEDS [address] [place], [place] [phone] Lana Couch FNP [address] [place] [address] 03/18/2025 10:00 AM EDT Office Visit [facility] MEDICINE [address] [place] [phone] Anil Metzger MD [address] [place] [phone] 03/25/2025 2:30 PM EDT Office Visit [address] [address] Joe De Leon MD [address] [place] [phone] documented as of this encounter Visit Diagnoses Not on filedocumented in this encounter Additional Health Concerns Assessment Noted Time PHQ-9 Depression Total Score: 0 05/29/20 11:15 AM EDT documented as of this encounter Care Teams Etl Software Engineer Relationship Specialty Start Date End Date Lana Couch FNP [address] [place] [phone] PCP - General Family Medicine 01/28/23 documented as of this encounter
--- NOTE | 2025-02-28 10:44 | P.CONAN_ITS ---
Documented by User: Lisa Mejia NP 03/14/25 15:11 HPI - Anesthesia Eval Consult details Narrative: 60yo M for Right Arthroscopic Rotator Cuff Repair, 03/16/25 Cardiac optimized. Preop risk stratify done by [facility] cardiology with echo/stress Medically optimized per PCP No recent illness No CP/SOB with walking outside ETOH 2-3 x weekly ~ 2 beers. Previous withdrawal. Discussed slow decrease preop Suboxone daily: Plans to decrease to 12mg daily leading up to day of surgery. Also discussed with prescriber COPD: Rare albuterol. Coarse bases on eval - encourage cough and deep breathe exercises preop. +Utox 09/2024, repeat DOS PMFSH Active Problems Active Problems: All Active Problems Elevated liver enzymes (Acute) Seizure (Acute) Bifascicular block (Acute) Preoperative cardiovascular examination (Acute) Rotator cuff tear, right (Acute) Patellofemoral arthritis of right knee (Acute) Past Medical History Medical History Wears dentures Recent bereavement Back pain History of fracture of ankle Acute respiratory failure with hypoxia Knee pain Skin lesion Obesity Tobacco use Cellulitis Atopic dermatitis Opioid dependence Viral hepatitis C Rupture of rotator cuff of shoulder Orthopedic hardware present Opioid abuse Depression Anxiety Lumbar radiculopathy History of alcohol abuse Chronic pain Family History Family History Father No problems noted. Mother No problems noted. Surgical History Surgical History History of surgery History of repair of rotator cuff Social History Social History Household Members Other:: step sister Housing: Apartment Are you a primary lawn care worker to a significant other at home: No Do you presently have visiting nurse or other home services: No Patient Tobacco Use Status: Current everyday Tobacco user Tobacco use type: Cigarette Cigarettes Per Day: 3 Second Hand Smoke Exposure: No Substance Use Type: Opiates Substance Use Type Other:: on Suboxone for 1 year Have you been hit, kicked, punched, or otherwise hurt by someone within the past year? If so, by whom?: No Are you DNR?: No Advance Directives: No Advance Directives Information Provided: Yes Advance Directives on File: No Poor oral hygiene: Yes Current occupational status: unemployed Meds Allergies Allergy/AdvReac Type Severity Reaction Status Date / Time No Known Allergies Allergy Verified 03/10/25 14:42 Home Medications ?Medication ?Instructions ?Recorded ?Confirmed ?Last Taken ?Type buprenorphine 8 mg-naloxone 2 mg 1 film sublingual TID 10/01/24 02/28/25 03/16/25 History sublingual film (Suboxone) ibuprofen 800 mg tablet 800 mg PO BID PRN pain 10/01/24 02/28/25 09/30/24 History triamcinolone acetonide 0.1 % 1 appl topical BID 10/01/24 02/28/25 09/30/24 History topical cream albuterol sulfate 90 mcg/actuation 2 puff inhalation Q4H PRN 02/28/25 02/28/25 Unknown History aerosol inhaler (Ventolin HFA) Shortness Of Breath Or Wheezing quetiapine 50 mg tablet 50 - 100 mg PO BEDTIME PRN Insomnia 02/28/25 02/28/25 Unknown History Exam Height,Weight and Vital Signs: Height 5 ft 8 in Weight 99.337 kg Last Vital Signs Pulse 98 02/28/25 10:10 Resp 16 02/28/25 10:10 BP 136/90 H 02/28/25 10:10 Pulse Ox 94 02/28/25 10:10 O2 Del Method Room Air 02/28/25 10:10 Pertinent Lab Results Pertinent Lab Results: Laboratory Tests 02/23/25 10:28 WBC 7.1 Hgb 14.5 Hct 40.6 L Plt Count 271 D Sodium 142 Potassium 3.8 Chloride 113 H Carbon Dioxide 20 L BUN 10 Creatinine 0.79 Narrative Narrative: EKG 09/2024 Vent. Rate : 083 BPM Atrial Rate : 083 BPM P-R Int : 178 ms QRS Dur : 164 ms QT Int : 434 ms P-R-T Axes : 047 -43 010 degrees QTc Int : 509 ms Normal sinus rhythm Left axis deviation Right bundle branch block Abnormal ECG No previous ECGs available Per PCP clearance visit, RBBB is chronic Per Cardiac clearance: Echocardiogram with LVEF 55-60%; no significant valvular findings. Stress echo unremarkable at 6.3METS work load. Airway Mallampati Class: III TM Dist: >3cm Neck ROM: Full Denture: Upper and Lower Heart: RRR Lungs: Coarse bases otherwise clear Assessment and Plan Assessment Anesthesia Assessment: Anesthesia Plan Discussed, Smoking Cess. Discussed and PAT Visit Documented by User: José Miguel Lopez MD 03/16/25 07:01 [facility] Past Medical History Medical History Wears dentures Recent bereavement Back pain History of fracture of ankle Acute respiratory failure with hypoxia Knee pain Skin lesion Obesity Tobacco use Cellulitis Atopic dermatitis Opioid dependence Viral hepatitis C Rupture of rotator cuff of shoulder Orthopedic hardware present Opioid abuse Depression Anxiety Lumbar radiculopathy History of alcohol abuse Chronic pain Functional capacity: independent ambulation Family History Family History Father No problems noted. Mother No problems noted. Family history of problems with anesthesia: No Surgical History Surgical History History of surgery History of repair of rotator cuff History of Problems with Anesthesia: No Social History Social History Household Members Other:: step sister Housing: Apartment Are you a primary lawn care worker to a significant other at home: No Do you presently have visiting nurse or other home services: No Patient Tobacco Use Status: Current everyday Tobacco user Tobacco use type: Cigarette Cigarettes Per Day: 3 Second Hand Smoke Exposure: No Substance Use Type: Opiates Substance Use Type Other:: on Suboxone for 1 year Have you been hit, kicked, punched, or otherwise hurt by someone within the past year? If so, by whom?: No Are you DNR?: No Advance Directives: No Advance Directives Information Provided: Yes Advance Directives on File: No Poor oral hygiene: Yes Current occupational status: unemployed Meds Allergies Allergy/AdvReac Type Severity Reaction Status Date / Time No Known Allergies Allergy Verified 03/10/25 14:42 Home Medications ?Medication ?Instructions ?Recorded ?Confirmed ?Last Taken ?Type buprenorphine 8 mg-naloxone 2 mg 1 film sublingual TID 10/01/24 02/28/25 03/16/25 History sublingual film (Suboxone) ibuprofen 800 mg tablet 800 mg PO BID PRN pain 10/01/24 02/28/25 09/30/24 History triamcinolone acetonide 0.1 % 1 appl topical BID 10/01/24 02/28/25 09/30/24 History topical cream albuterol sulfate 90 mcg/actuation 2 puff inhalation Q4H PRN 02/28/25 02/28/25 Unknown History aerosol inhaler (Ventolin HFA) Shortness Of Breath Or Wheezing quetiapine 50 mg tablet 50 - 100 mg PO BEDTIME PRN Insomnia 02/28/25 02/28/25 Unknown History Exam Exam Date and Time: 03/16/2025 Narrative Narrative: EKG 09/2024 Vent. Rate : 083 BPM Atrial Rate : 083 BPMjune 4th P-R Int : 178 ms QRS Dur : 164 ms QT Int : 434 ms P-R-T Axes : 047 -43 010 degrees QTc Int : 509 ms,2024 Normal sinus rhythm Left axis deviation Right bundle branch block Abnormal ECG No previous ECGs available Per PCP clearance visit, RBBB is chronic Per Cardiac clearance: Echocardiogram with LVEF 55-60%; no significant valvular findings. Stress echo unremarkable at 6.3METS work load. Airway Loose/Missing/Broken Teeth: No Other: optimized for surgery Assessment and Plan Final Anesthetic Review Family History of Problems with Anesthesia: No History of Problems with Anesthesia: No NPO: Yes ASA Class: II Final Preanesthetic Review: No Changes in Pt Med Stat, Meds/Allgs Chart Reviewed, Consent Obtained/Reviewed and Anes Risks/Benef Reviewed Patient Risk: Intermediate Procedure Risk: Intermediate Anesthetic Plan Anesthetic Plan: GA and Regional Block Disposition: Standard PACU
[2025-03-16] VITALS (19 sets, daily range): BP systolic 111–141; BP diastolic 67–88; PULSE 92–105; RESP 14–18; TEMP 36.2–36.4; O2SAT 90–99; BMI 33.1
[2025-03-16] MEDS: Lactated Ringers 1,000 ML 100 ML IVCONT (06:35)
--- NOTE | 2025-03-16 07:03 | MHC.SHP ---
Pre-Procedural Eval Section A - 24 Hr Update-Section A only Date of Service: 03/16/25 The patient is an INPATIENT: No Changes since office visit: No Cold of Flu in the past 2 weeks, No New Medical Problems, No Changes in Medication and No Patient answered all questions The patient has been examined within 24 hours of the surgical procedure. The History & Physical has been completed within 30 days and I have reviewed it.: Yes Section B - Complete if H&P > 30 days Chief Complaint: Unspecified rotator cuff tear or rupture of right Allergies: Allergies Allergy/AdvReac Type Severity Reaction Status Date / Time No Known Allergies Allergy Verified 03/10/25 14:42 Plan I have reviewed the history and physical and performed a pertinent physical examination on my patient. No changes have occurred unless specified. Time Spent With Patient Time: Total time managing care of this patient today ____ minutes.
--- NOTE | 2025-03-16 07:03 | PC.NURSE ---
Dr. Barcenas and Dr. Lopez at bedside, okay to proceed without Utox collected.
[2025-03-16] MEDS: ceFAZolin Sodium/Dextrose,Iso 2 GM/50 ML PIGGYBACK IV (07:50)
--- NOTE | 2025-03-22 13:55 | P.BOP_ITS ---
Brief Operative Note Date of Service: 03/16/25 Pre-op diagnosis: Right rotator cuff tear Post-op diagnosis: other (Unrepairable right rotator cuff tear) Procedure: Right shoulder arthroscopy Implants: None Surgeon: Gab Barcenas MD Anesthesia: GETA and regional Was an Salesforce Business Analyst used for this Procedure?: Yes Salesforce Business Analyst: Laxmi Webster Estimated blood loss (mL): 20 IV fluids (mL): 500 Pathology: none sent Condition: stable Disposition: PACU
--- NOTE | 2025-03-22 13:57 | W.PM.OPN ---
Operative Note Operative Note Date of Service: 03/16/25 Narrative: Date of Service: 03/16/25 Pre-op diagnosis: Right rotator cuff tear Post-op diagnosis: other (Unrepairable right rotator cuff tear) Procedure: Right shoulder arthroscopy Implants: None Surgeon: Gab Barcenas MD Anesthesia: GETA and regional Was an Clinical Research Nurse Coordinator used for this Procedure?: Yes Clinical Research Nurse Coordinator: Laxmi Webster Estimated blood loss (mL): 20 IV fluids (mL): 500 Pathology: none sent Condition: stable Disposition: PACU Procedure in detail: Patient was brought to the operating room and placed the the beach chair position. All bony prominences were well padded and the limb was prepped and draped in standard sterile fashion. A time out was called to identify proper site, proper procedure and proper surgeon. IV antibiotics per weight were administered. I began by making a posterolateral stab incision with a 15 blade. A blunt trochar was placed into the glenohumeral joint and I insufflated the joint with saline and a 30 degree arthroscope was placed. I established an outside- in anterior portal just distal to the biceps tendon. I then began my inspection of the glenohumeral joint. There had been a part prior biceps tenotomy and there was fraying of the anterior and superior labrum. There were grade 1/2 changes of the cartilage surfaces of the glenohumeral joint. The subscapularis was retracted and there was old suture attached to this retracted stump medially. There was a full-thickness undersurface retracted rotator cuff tear that was massive and complete and had retracted to the level of the glenoid. I debrided the loose cartilage of the glenoid and the degenerative labral tearing. I then removed the trochar and entered the subacromial space. A direct lateral portal was then established and I performed a bursectomy. The cuff was then examined. The cuff had retracted to the level of the glenoid. I placed a grasper in an attempted to mobilize it and it was completely retracted and stiff and immobile. This was the entirety of the cuff. Once I was satisfied with the repair final images were captured and I removed all instrumentation. Portals were closed with nylon. Patient was placed in an abduction sling, extubated and brought to the recovery room in stable condition. There were no known complications.
== END 2025-03-16 14:19 | disposition home or self-care (01) ==
LOC: HO.SSS 06:11
PROVIDERS: PCP Registered Nurse; Visit Provider Orthopaedic Surgery
PROC: (CPT 29822; principal; 2025-03-16 07:30)
DX: M75.121 Complete rotator cuff tear or rupture of right shoulder, not specified as traumatic (principal); J44.9 Chronic obstructive pulmonary disease, unspecified; J96.01 Acute respiratory failure with hypoxia; R56.9 Unspecified convulsions; B19.20 Unspecified viral hepatitis C without hepatic coma; R74.8 Abnormal levels of other serum enzymes; G89.29 Other chronic pain; F11.20 Opioid dependence, uncomplicated; F10.11 Alcohol abuse, in remission; F32.A Depression, unspecified; F41.9 Anxiety disorder, unspecified; Z79.1 Long term (current) use of non-steroidal anti-inflammatories (NSAID); Z79.899 Other long term (current) drug therapy; F17.210 Nicotine dependence, cigarettes, uncomplicated; Z98.890 Other specified postprocedural states
CPT/HCPCS: 29822; J0131; J0171; J0665; J0690; J1100; J2003; J2250; J2371; J2405; J2704; J3010

== ENCOUNTER → 2025-03-16 06:11 | Outpatient (BNV) | payer MEDICAID, SELFPAY | PROVIDERS: PCP Registered Nurse; Visit Provider Orthopaedic Surgery | DX: S46.011A Strain of muscle(s) and tendon(s) of the rotator cuff of right shoulder, initial encounter (principal) | CPT/HCPCS: 29827 ==

== ENCOUNTER 2025-03-24 13:41 | Outpatient (AMB) | payer MEDICAID, SELFPAY ==
--- NOTE | 2025-03-24 13:46 | MHC.OFFVIS ---
Intake Visit Reasons: PO RT RTC repair 03/16/25 NE Intake Note: Ananda is a 60 year old male who presents today for a post op appointment s/p RT RTC repair 03/16/25 NE. Patient reports he is having pain in his shoulder and his ROM is limited. Allergies No Known Allergies Allergy (Verified 03/24/25 13:46) HPI HPI PO RT RTC repair 03/16/25 NE: Details: Mr. Coles is a 60 year old male who presents to the office today s/p right shoulder arthroscopy on 03/16/[address] Barcenas where an attempted rotator cuff repair was attempted. Unfortunately, The rotator cuff was retracted and irreparable. The patient states that he is having pain in the right shoulder and would like to know what the next step is in the treatment plan. [facility] Medical History Wears dentures Recent bereavement Back pain History of fracture of ankle Acute respiratory failure with hypoxia Knee pain Skin lesion Obesity Tobacco use Cellulitis Atopic dermatitis Opioid dependence Viral hepatitis C Rupture of rotator cuff of shoulder Orthopedic hardware present Opioid abuse Depression Anxiety Lumbar radiculopathy History of alcohol abuse Chronic pain Surgical History History of surgery History of repair of rotator cuff Family History Father No problems noted. Mother No problems noted. Social History Household Members Other:: step sister Housing: Apartment Are you a primary patient centered care specialist to a significant other at home: No Do you presently have visiting nurse or other home services: No Comment: COUNTS CORRECT Patient Tobacco Use Status: Current everyday Tobacco user Tobacco use type: Cigarette Cigarettes Per Day: 3 Second Hand Smoke Exposure: No Substance Use Type: Opiates Current occupational status: unemployed Review of Systems Const All systems reviewed & are unremarkable except as noted in HPI and below Physical Exam Const General: cooperative, healthy appearing and no acute distress Resp Effort & Inspection: normal respiratory effort and able to speak in complete sentences Extrem Other: Right shoulder incision sites are clean, dry, and intact. Sutures intact. NVI. Assessment & Plan Assessment & Plan (1) Rotator cuff tear, right: Code(s): M75.101 - Unspecified rotator cuff tear or rupture of right shoulder, not specified as traumatic Category: Medical Plan Mr. Coles is a 60 year old male who presents to the office today s/p right shoulder arthroscopy on 03/16/[address] Barcenas where an attempted rotator cuff repair was attempted. Unfortunately, The rotator cuff was retracted and irreparable. The patient states that he is having pain in the right shoulder and would like to know what the next step is in the treatment plan. Dr. Barcenas was available to speak to the patient with me in the office today and a collaborative treatment plan was created. Dr. Barcenas explained to the patient that the rotator cuff was unfortunately not repairable. The next step would be to discuss a total shoulder replacement. However, the patient must make a full recovery from this surgery in order to proceed. Sutures were removed and steri strips were applied. The patient may use the sling for comfort if needed. The patient will followup in [address] Barcenas, sooner if needed. Coding Level of Care Code Global (17311) Diagnoses Rotator cuff tear, right M75.101
--- OUTSIDE RECORDS SUMMARY | 2025-03-24 16:02 | XMS_ITS | Encounter Summary ---
Author Organization [employer] Address [address] [facility] [address] [place] [address] Care Team Providers Care Night Coordinator Name Role Phone Lana Couch Primary Care Provider [phone] Reason for Visit * Reason Onset Date Comments Pre op 01/28/2025 Encounter Details Date Type Department Care Team (Late st Contact Info) Description 01/28/2025 Telephone [facility] [address] [place] [address] Lana Couch FNP [address] [place], [place] [id number] Pre op Social History Tobacco Use Types [...] Yes Surgeon's name: Dr.Noah Barcenas Facility name: [facility] Surgeon's office number: [phone] Surgeon's office fax number: [phone] Contact name (person you spoke with): Leann Last office note from surgeon requested: Yes Send Message to Sharon Zheng and Ricardo Javier Pt was Cleared by [facility] Cardiology. Contact Leann at [phone] documented in this encounter Plan of Treatment Upcoming Encounters Date Type Department Care Team (Late st Contact Info) Description 04/08/2025 9:30 AM EDT Office Visit [facility] [address] [place] [address] Anil Metzger MD [address] [place] [address] 04/08/2025 11:15 AM EDT Office Visit [facility] [address] [place] [address] Lana Couch FNP [address] [place] [address] 06/24/2025 2:45 PM EDT Office Visit [facility] [address] [place] [address] Lana Couch FNP [address] [place] [address] documented as of this encounter Visit Diagnoses Not on filedocumented in this encounter Additional Health Concerns Assessment Noted Time PHQ-9 Depression Total Score: 0 05/29/20 11:15 AM EDT documented as of this encounter Care Teams Night Coordinator Relationship Specialty Start Date End Date Lana Couch FNP [address] [place] [address] PCP - General Family Medicine 01/28/23 documented as of this encounter
== END 2025-03-24 14:25 | disposition home or self-care (01) ==
LOC: HO.HOS 13:42
PROVIDERS: PCP Registered Nurse; Visit Provider Physician Assistant
DX: M75.101 Unspecified rotator cuff tear or rupture of right shoulder, not specified as traumatic (principal)
CPT/HCPCS: 99024

== ENCOUNTER → 2025-03-24 13:41 | Outpatient (BNVA) | payer MEDICAID, SELFPAY | PROVIDERS: PCP Registered Nurse; Visit Provider Physician Assistant | DX: M25.511 Pain in right shoulder (principal); M75.101 Unspecified rotator cuff tear or rupture of right shoulder, not specified as traumatic | CPT/HCPCS: 99212 ==

== ENCOUNTER 2025-05-30 12:27 | Outpatient (AMB) | payer MEDICAID, SELFPAY ==
--- NOTE | 2025-05-30 12:54 | MHC.OFFVIS ---
Vital Signs 05/30/25 12:57 Height 5 ft 8 in Weight 210 lb BMI 31.9 Intake Visit Reasons: PO RT RTC repair 03/16/25 NE Intake Note: Ananda is a 60 year old right hand dominant male who presents today for a follow up s/p RT RTC repair 03/16/25. His RTC tear was irrepairable, today he presents to discuss the process of proceeding with a TSA. Allergies No Known Allergies Allergy (Verified 03/24/25 13:46) HPI HPI PO RT RTC repair 03/16/25 NE: Details: Ananda is a 60 year old right hand dominant male who presents today for a follow up s/p RT RTC repair 03/16/25. His RTC tear was irrepairable, today he presents to discuss the process of proceeding with a TSA. He describes inability to lift anything to shoulder level. He has pain when he engages in daily activities. He feels quality of his life is diminished. He is frustrated because this is been going on for years. He understands that we were not able to fix the rotator cuff tear he feels that he needs to do something in order to get back to able to engage in daily activities pain free. He is right-hand dominant. Ananda has gotten this is life together over the past several months. He states he has not had a drop of alcohol in over 3 months no longer smokes cigarettes. He is stable on Suboxone for a history of opioid addiction. He recently lost his proximally 4 months ago and lives with his [id number]. He has had hepatitis which has been fully treated, according to him, and is no longer present in his system. His liver enzymes were elevated just under a year ago. I do not see any repeat labs. [facility] Medical History (Updated 05/30/25 @ 14:07 by Gab Barcenas MD) Wears dentures Recent bereavement Back pain History of fracture of ankle Acute respiratory failure with hypoxia Knee pain Skin lesion Obesity Tobacco use Cellulitis Atopic dermatitis Opioid dependence Viral hepatitis C Rupture of rotator cuff of shoulder Orthopedic hardware present Opioid abuse Depression Anxiety Lumbar radiculopathy History of alcohol abuse Chronic pain Surgical History History of surgery History of repair of rotator cuff Family History Father No problems noted. Mother No problems noted. Social History Household Members Other:: step sister Housing: Apartment Are you a primary home health aide caregiver to a significant other at home: No Do you presently have visiting nurse or other home services: No Comment: COUNTS CORRECT Patient Tobacco Use Status: Current everyday Tobacco user Tobacco use type: Cigarette Cigarettes Per Day: 3 Second Hand Smoke Exposure: No Substance Use Type: Opiates Current occupational status: unemployed Physical Exam Exam Exam: Pleasant gentleman who is in no acute distress. He is alert and oriented x3. Is right arm and shoulder exam is notable for a 4- out of 5 empty can and 4- out of 5 lift-off. Active abduction to 70 degrees without recruitment. Active forward flexion to 100 degrees without recruitment. Vital Signs: BMI result Body Mass Index 31.9 Assessment & Plan Assessment & Plan (1) Rotator cuff arthropathy of right shoulder: Code(s): M12.811 - Other specific arthropathies, not elsewhere classified, right shoulder Category: Medical Plan: This is a 60-year-old gentleman with right shoulder rotator cuff arthropathy. He is not able to functionally use his right shoulder for daily activities and would, in my opinion, benefit from a reverse total shoulder. It does have some risk factors all of which he states are controlled. He states his hepatitis has been cured he states is liver enzymes are back to normal. He states he no longer drinks and does not want to drink. He does not smoke. He has a stable living situation but is not his own home. I do think he would benefit from arthroplasty and it is reasonable to slowly proceed forward but we will need to continue to monitor his drinking and his labs. I did discuss arthroplasty with him. I food in the procedure and explained the risks, benefits and alternatives. I explained the risk of infection, fracture, dislocation, nerve injury, resection arthroplasty leading to inability to use right arm. I described the stiffness and the risk of postoperative falls treating the fractures and/or dislocations. He will obviously need to get medical clearance and have repeat labs done by his primary care doctor. I think this should be the 1st order of business and then he can come back and see me for follow up. (2) Atopic dermatitis: Code(s): L20.9 - Atopic dermatitis, unspecified Category: Medical Plan: Atopic dermatitis left knee. He states he takes a steroid cream. I renewed his prescription that was in his chart. Medications: New triamcinolone acetonide 0.1% 1 appl topical BID 30 grams 0RF Coding Level of Care Code Est Pt Level 4 (96621) Diagnoses Rotator cuff arthropathy of right shoulder M12.811 Atopic dermatitis L20.9
[2025-05-30 12:57] VITALS: BMI 31.9
--- OUTSIDE RECORDS SUMMARY | 2025-05-30 13:27 | XMS_ITS | Clinical Summary ---
Author Organization [facility] Address [address] [place] [address] Care Team Providers Care Autopsy Pathologist Name Role Phone Wiley Arroyo MD Primary Care Provider Un available Wiley Arroyo MD Unavailable Unavaila ble Medications oxyCODONE HCl (ROXICODONE) 30 MG immediate release tablet TAKE 1 TABLET Every 4 hours PRN MDD:5 TDD:5 150 0 09/26/2010 Active ALPRAZolam (XANAX) 1 MG tablet TAKE 1 TABLET BY MOUTH FOUR TIMES DAILY NEEDED 120 1 09/26/2010 Active Active Problems Problem Noted Date Diagnosed Date Generalized anxiety disorder 09/26/2010 Lower back pain 09/26/2010 Cervicalgia 09/26/2010 Social History Tobacco Use Types Packs/Day Years Used Date Smoking Tobacco: Never Assessed Comments:Current Smoker:Curr ent Smoker Sex and Gender Information Value Date Recorded Sex Assigned at Not on file Legal Sex Male 1:54 PM EDT Gender Identity Not on file Sexual Orientation Not on file Last Filed Vital Signs Vital Sign Reading Time Taken Comments Blood Pressure 120/80 08/01/2011 1:24 PM EDT Pulse 80 08/01/2011 1:24 PM EDT Temperature - - Respiratory Rate - - Oxygen Saturation - - Inhaled Oxygen Concentration - - Weight 78.8 kg (173 lb 12.6 oz) 08/01/2011 1:24 PM EDT Height 172.7 cm (5' 8 ) 08/01/2011 1:24 PM EDT Body Mass Index 26.42 08/01/2011 1:24 PM EDT Plan of Treatment Health Maintenance Due Date Last Done Comments Hepatitis C Screening 1965 DTaP/Tdap/Td (1 - Tdap) 1983 Pneumococcal 50+ years (1 of 1 - PCV) 2015 Zoster (Shingrix) (1 of 2) 2015 COVID-19 Vaccine (1 - 2024-2 5 season) 2024 Influenza (#1) 2025 RSV (1 - 1-dose 75+ series) 02/26/2040 HPV Vaccine (No Doses Required) Completed Hep A Aged Out No longer eligi ble based on patient's age to complete this topic Hep B Aged Out No longer eligi ble based on patient's age to complete this topic Hib Aged Out No longer eligi ble based on patient's age to complete this topic Meningococcal ACWY Aged Out No longer eligible based on patient's age to complete this topic Zoster (Zostavax) Discontinued Care Teams Autopsy Pathologist Relationship Specialty Start Date End Date Wiley Arroyo MD PCP - General 05/19/23 Wiley Arroyo MD PCP - Backup PCP Family Medicine 11/12/23
--- OUTSIDE RECORDS SUMMARY | 2025-05-30 13:27 | XMS_ITS | Clinical Summary ---
Author Organization [facility] Address [address] [place] [address] Care Team Providers Care Lawn And Tree Service Spray Supervisor Name Role Phone Unavailable Primary Care Provider Unavailabl e Social History Tobacco Use Types Packs/Day Years Used Date Smoking Tobacco: Never Assessed Sex and Gender Information Value Date Recorded Sex Assigned at Not on file Legal Sex Male 8:37 AM EST Gender Identity Not on file Sexual Orientation Not on file Plan of Treatment Health Maintenance Due Date Last Done Comments Pneumococcal Vaccine: 50+ Ye ars (1 of 1 - PCV) 2015 Zoster Vaccines (1 of 2) 2015 Cholesterol Screening (Lipid Panel) 11/11/2023 Colorectal Cancer Screening: Colonoscopy 11/11/2023 HIV Screening 11/11/2023 Hepatitis C Screening 11/11/2023 Social Influencers of Health Screening 11/11/2023 COVID-19 Vaccine (1 - 2023-2 5 season) 2024 Depression Screening 10/13/2024 Influenza Vaccine (#1) 2025 DTaP,Tdap,and Td Vaccines (2 - Td or Tdap) 09/01/2033 09/01/2023 RSV Immunization Adult Patie nts (1 - 1-dose 75+ series) 02/26/2040 HIB Vaccines Aged Out No longer eligi ble based on patient's age to complete this topic HPV Vaccines Aged Out No longer eligi ble based on patient's age to complete this topic Hepatitis A Vaccines Aged Out No long er eligible based on patient's age to complete this topic Hepatitis B Vaccines Aged Out No long er eligible based on patient's age to complete this topic IPV Vaccines Aged Out No longer eligi ble based on patient's age to complete this topic MMR Vaccines Aged Out No longer eligi ble based on patient's age to complete this topic Meningococcal ACWY Vaccine Aged Out N o longer eligible based on patient's age to complete this topic Meningococcal B Vaccine Aged Out No l onger eligible based on patient's age to complete this topic RSV Immunization Patients Un alistair 20 months Aged Out No longer eligible b ased on patient's age to complete this topic Varicella Vaccines Aged Out No longer eligible based on patient's age to complete this topic
--- OUTSIDE RECORDS SUMMARY | 2025-05-30 13:27 | XMS_ITS | Encounter Summary ---
Author Organization [facility] Address [address] [place] [address] Care Team Providers Care Well Shooter Name Role Phone Bella Cool RN Unavailable [phone] Yemi Robin DO Unavailable Yemi Robin DO Primary Care Provider [phone] Encounter Details Date Type Department Care Team (Late st Contact Info) Description 10/22/2016 Scanned Document [facility] [address] [address] Bella Cool, JOHN [address] [id number] Social History Tobacco Use Types Packs/Day Years Used Date Smoking Tobacco: Never Assessed Sex and Gender Information Value Date Recorded Sex Assigned at Not on file Legal Sex Male 11:26 AM EDT Gender Identity Not on file Sexual Orientation Not on file documented as of this encounter Plan of Treatment Not on file documented as of this encounter Visit Diagnoses Not on filedocumented in this encounter Care Teams Well Shooter Relationship Specialty Start Date End Date Yemi Robin DO [address] [place] [address] [address] [place] [address] PCP - General Internal Medicine 12/17/16 Bella Cool, RN [address] [address] Registered Nurse Hepatology 10/22/16 Yemi Robin DO [address] [facility] [address] [place] [address] Internal Medicine 10/22/16 documented as of this encounter
--- OUTSIDE RECORDS SUMMARY | 2025-05-30 13:27 | XMS_ITS | Encounter Summary ---
Author Organization [employer] Address [address] [facility] [address] [place] [address] Care Team Providers Care Teller Vault Name Role Phone Lana Couch Primary Care Provider [phone] Reason for Visit * Reason Onset Date Comments Pre op 01/28/2025 Encounter Details Date Type Department Care Team (Late st Contact Info) Description 01/28/[address] [facility] [address] [place] [address] Lana Couch FNP [address] [place], [place] [id number] Pre op Social History Tobacco Use Types [...] Yes Surgeon's name: Dr.Noah Barcenas Facility name: [facility] Surgeon's office number: [phone] Surgeon's office fax number: [phone] Contact name (person you spoke with): Leann Last office note from surgeon requested: Yes Send Message to Sharon Zheng and Ricardo Javier Pt was Cleared by [facility] Cardiology. Contact Leann at [phone] documented in this encounter Plan of Treatment Upcoming Encounters Date Type Department Care Team (Late st Contact Info) Description 06/03/2025 9:15 AM EDT Telemedicine [facility] [address] [place] [address] Anil Metzger MD [address] [place] [address] 06/24/2025 2:45 PM EDT Office Visit [facility] [address] [place] [address] Lana Couch FNP [address] [place] [address] documented as of this encounter Visit Diagnoses Not on filedocumented in this encounter Additional Health Concerns Assessment Noted Time PHQ-9 Depression Total Score: 0 05/29/20 11:15 AM EDT documented as of this encounter Care Teams Teller Vault Relationship Specialty Start Date End Date Lana Couch FNP [address] [place] [address] PCP - General Family Medicine 01/28/23 documented as of this encounter
--- OUTSIDE RECORDS SUMMARY | 2025-05-30 13:27 | XMS_ITS | Clinical Summary ---
Author Organization [facility] Address [address] [place] [address] Care Team Providers Care Power Crane Operator Name Role Phone Yemi Robin DO Primary Care Provider [phone] Allergies No known active allergies Medications Medication Sig Dispensed Refills Start Date End Date Status ALPRAZolam (XANAX) 1 MG tablet Take 1 mg by mouth every night at bedtime as needed for sleep. 0 Active OxyCODONE HCl ER (OXYCONTIN) 30 MG T12A controlled release tablet Take 30 mg by mouth every 12 (twelve) hours. 0 Active ibuprofen (ADVIL,MOTRIN) 600 MG tablet TAKE 1 TABLET ORALLY 3 TIMES A DAY NEEDED FOR PAIN 0 12/11/2016 Active oxyCODONE-acetamino phen (PERCOCET) 10-325 MG per tablet Take 10 tablets by mouth. 1-2 tablets q 4-6 hours for breakthrough pain. 0 12/13/2016 Active amoxicillin (AMOXIL) 500 MG capsule TAKE ONE CAPSULE BY MOUTH 3 TIMES A DAY FOR 10 DAYS 0 12/05/2016 Active ipratropium (ATROVENT) 0.06 % nasal spray USE 2 SPRAYS IN THE NOSTRILS FOUR TIMES A DAY 0 09/30/2016 Active VOLTAREN 1 % GEL topical 0 09/29/2017 Active folic acid (FOLVITE) tablet 1 mg 0 09/29/2017 Active ipratropium (ATROVENT) 0.06 % nasal spray 0 10/20/2017 Active Lactobacillus-Inuli n ([facility]) CAPS 0 10/20/2017 Active Magnesium Oxide 400 (241.3 MG) MG TABS tablet TAKE 1 TABLET BY MOUTH EVERY DAY FOR 14 DAYS 0 08/20/2017 Active methocarbamol (ROBAXIN) 500 MG tablet TAKE 1-2 TABLETS BY MOUTH AT BEDTIME FOR 10 DAYS 0 08/20/2017 Active mupirocin (BACTROBAN) 2 % ointment APPLY TWICE A DAY FOR 7 DAYS 1 08/12/2017 Active ofloxacin (OCUFLOX) 0.3 % ophthalmic solution INSTILL 1 DROP INTO LEFT EYE 4 TIMES A DAY FOR 5 DAYS 0 08/02/2017 Active Active Problems Problem Noted Date Diagnosed Date Left-sided low back pain with left-sided sciatic a 10/22/2017 Numbness of left foot 10/22/2017 Status post lumbar surgery 12/26/2016 Lumbar disc herniation with radiculopathy 2016 Social History Tobacco Use Types Packs/Day Years Used Date Smoking Tobacco: Every Day Cigarettes 1.5 Smokeless Tobacco: Current Alcohol Use Standard Drinks/Week Comments Yes 5 (1 standard drink = 0.6 oz pur e alcohol) hx etoh abuse Sex and Gender Information Value Date Recorded Sex Assigned at Not on file Gender Identity Not on file Sexual Orientation Not on file Last Filed Vital Signs Vital Sign Reading Time Taken Comments Blood Pressure 114/82 10/22/2017 11:55 AM EST Pulse 81 01/15/2017 3:21 PM EDT Temperature 36.6 C (97.9 F) 10/22/2017 11:55 AM EST Respiratory Rate 18 01/15/2017 3:21 PM EDT Oxygen Saturation 97% 01/15/2017 3:21 PM EDT Inhaled Oxygen Concentration - - Weight 82.6 kg (182 lb) 10/22/2017 11:55 AM EST Height 172.7 cm (5' 8 ) 10/22/2017 11:55 AM EST Body Mass Index 27.67 10/22/2017 11:55 AM EST Plan of Treatment Health Maintenance Due Date Last Done Comments Hepatitis C Screening 1965 COVID-19 Vaccine (#1) 1965 Pneumococcal Vaccine (1 of 2 - PCV) 1971 Depression Screening 1977 Preventative Health Evaluation 1983 DTap / Tdap / Td (1 - Tdap) 02/26/1984 Colon Cancer Screening (Colonoscopy) 2010 Shingrix-Zoster Vaccine (1 of 2) 2015 Influenza Vaccine (#1) 2025 RSV Adult > 60+ Yrs or Pregn ant (1 - 1-dose 75+ series) 02/26/2040 Hepatitis B Vaccines Aged Out No long er eligible based on patient's age to complete this topic RSV Ped < 20 months Aged Out No longe r eligible based on patient's age to complete this topic Medical Devices Implanted Type Area Graphic Arts Technician Device Identifier Shelf Expiration Date Model / Serial / Lot Duramatrix Onlay Plus 1x1 - [id number] - [id number] Implanted:Qty: 1 on 12/13/2016 by Shade Chawla DO at [facility] Left: Spine Lumbar ANNIKA IAN 04/11/2017 [id number] / / [id number] Care Teams Power Crane Operator Relationship Specialty Start Date End Date Yemi Robin DO [address] [place] [address] PCP - General Internal Medicine 01/06/15
== END 2025-05-30 13:37 | disposition home or self-care (01) ==
LOC: HO.HOS 12:27
PROVIDERS: PCP Registered Nurse; Visit Provider Orthopaedic Surgery
DX: M12.811 Other specific arthropathies, not elsewhere classified, right shoulder (principal); L20.9 Atopic dermatitis, unspecified
CPT/HCPCS: 99024

== ENCOUNTER 2025-07-01 09:39 | Outpatient (REF) | payer MEDICAID, SELFPAY ==
--- OUTSIDE RECORDS SUMMARY | 2025-07-01 09:30 | XMS_ITS | Encounter Summary ---
Author Organization [facility] Address [address] [facility] 7t [place] [address] Care Team Providers Care Silverware Washer Name Role Phone Lana Couch GRECIA Primary Care Provider [phone] Reason for Visit * Reason Comments OBAT F/U Encounter Details Date Type Department Care Team (Latest Contact Info) Description 07/01/2025 9:30 AM EDT Office Visit [facility] [address] [place], [place] [phone] Anil Metzger MD [address] [place], [place] [phone] Uncomplicated opioid dependence (CMS/HCC) (Primary Dx); Alcohol use disorder; Tobacco use Social History Tobacco Use Types Packs/Day Years Used Date Smoking Tobacco: Every Day Cigarettes Passive Smoke Exposure: Current Smokeless Tobacco: Never Alcohol Use Standard Drinks/Week Comments Yes 0 (1 standard drink = 0.6 oz pur e alcohol) Depression Answer Date Recorded Patient Health Questionnaire-9 Score 7 06/24/2025 Patient Health Questionnaire-9 Score 7 06/24/2025 Last PHQ-9: Questionnaire Data Not on file 0 06/24/2025 Housing Stability Answer Date Recorded What is your housing situation today? I have seng bustos 05/10/[address] you li ve. Do you have problems with any of the following? None of the above 05/10/2025 Food Insecurity Answer Date Recorded Within the past 12 months, y ou worried that your food would run out before you got money to buy more: Never True 05/10/2025 Within the past 12 months,th e food you bought just didn't last and you didn't have enough money to get more: Never True Transportation Answer Date Recorded In the past 12 months, has l ack of transportation kept you from medical appts, meetings, work or from getting things needed for daily living? No 05/10/2025 Utilities Answer Date Recorded In the past 12 months, has t he electric, gas, oil or water company threatened to shut off services in your home? No 05/10/2025 Depression Answer Date Recorded Patient Health Questionnaire-2 Score 2 06/24/2025 Internet Access Answer Date Recorded Internet Access Q1 Yes 05/10/2025 Internet Access Q2 Not on file 05/10/2025 Sex and Gender Information Value Date Recorded Sex Assigned at Male 08/12/2022 10:37 AM EDT Legal Sex Male 10:37 AM EDT Gender Identity Male 08/12/2022 10:37 AM EDT Sexual Orientation Straight 08/12/2022 10 :37 AM EDT documented as of this encounter Plan of Treatment Upcoming Encounters Date Type Department Care Team (Late st Contact Info) Description 07/29/2025 10:15 AM EDT Office Visit [facility] [address] [place] [phone] Anil Metzger MD [address] [place] [address] [phone] documented as of this encounter Procedures Procedure Name Priority Date/Time Associated Diagnosis Comments POCT RONAK-14 URINE DRUG SCREEN Routine 07/01/2025 9:22 AM EDT Uncomplicated opioid dependence ([facility]) documented in this encounter Results * (ABNORMAL) POCT RONAK-14 Urine Drug Screen (07/01/2025 9:22 AM EDT) THC Negative Negative Cocaine Screen, Urine Negative Negative Opiate Screen, Urine Negative Negative Methamphetamine Screen Urine Negative Negative Amphetamine Screen, Urine Negative Negative Benzodiazepines Screen, Urine Negative Negative Barbiturate Screen, Urine Negative Negative Methadone Screen, Urine Negative Negative Buprenophine Screen, Urine Positive(A) Negative TCA, Urine Negative Negative MDMA Urine Negative Negative ng/mL Oxycodone Screen, Urine Negative Negative Phencyclidine (PCP), Urine Negative Negative Fentanyl, Urine Negative Negative Urine Urine specimen obtained by clean catch procedure / Unknown 07/01/2025 9:22 AM EDT us Anil Metzger MD POINT OF CARE TEST ENTER/EDIT ORDERABLES Final Result documented in this encounter Visit Diagnoses Diagnosis Uncomplicated opioid dependence (CMS/HCC)- Primary Alcohol use disorder Tobacco use documented in this encounter Additional Health Concerns Assessment Noted Time PHQ-9 Depression Total Score: 7 06/24/20 25 3:12 PM EDT documented as of this encounter Care Teams Silverware Washer Relationship Specialty Start Date End Date Lana Couch FNP [address] [place] [address] PCP - General Family Medicine 01/28/23 documented as of this encounter
--- OUTSIDE RECORDS SUMMARY | 2025-07-01 10:14 | XMS_ITS | Encounter Summary ---
Author Organization [facility] Address [address] [facility] 7t [place] [address] Care Team Providers Care Fabrication Welder Name Role Phone Lana Couch Primary Care Provider [phone] Reason for Visit * Reason Onset Date Comments Call Back Request 10/09/2023 Encounter Details Date Type Department Care Team ([facility] st Contact Info) Description 10/09/2023 Telephone [facility] [address] [place], [place] [phone] Lana Couch FNP [address] [place] [address] Call Back Request Social History Tobacco Use [...] with others, in a hotel, in a usp, living outside on the street, on a [...] to message below. Please contact pt at [phone]. CHW Dori Braun placed outbound call to patient for follow up call on SDOH needs. No answer at this time. CHW LVM introducing herself from [facility] CM Department. Requested call back. CHW reinforced direct contact information or CM for any additional questions or concerns and extended clinic hours on Mondays and Wednesdays, and Walk-In Urgent Care Located in [facility] of [facility]. Patient provided with after-hours line for [facility], , which offer night time triage service and option to transfer to protection mgr provider if needed. CHW will attempt another follow up call within 10 days.[email or web address] documented in this encounter Plan of Treatment Upcoming Encounters Date Type Department Care Team (Late st Contact Info) Description 07/29/2025 10:15 AM EDT Office Visit [facility] [address] [place] [address] Anil Metzger MD [address] [place] [address] documented as of this encounter Visit Diagnoses Not on filedocumented in this encounter Additional Health Concerns Assessment Noted Time PHQ-9 Depression Total Score: 0 05/29/20 23 11:15 AM EDT documented as of this encounter Care Teams Fabrication Welder Relationship Specialty Start Date End Date Lana Couch FNP [address] [place] [address] PCP - General Family Medicine 01/28/23 documented as of this encounter
--- OUTSIDE RECORDS SUMMARY | 2025-07-01 10:14 | XMS_ITS | Encounter Summary ---
Author Organization [facility] Address [address] [facility] 7t [place] [address] Care Team Providers Care Import Export Clerk Name Role Phone Lana Couch Primary Care Provider [phone] Reason for Visit * Reason Onset Date Comments Referral 03/10/2025 Encounter Details Date Type Department Care Team (Late st Contact Info) Description 03/10/2025 Telephone [facility] MEDICINE [address] [place] [address] Lana Couch FNP [address] [place], [place] [phone] Referral Social History Tobacco Use Types Packs/Day Years [...] encounter Miscellaneous Notes * Telephone Encounter - Radha Squires RN - 03/11/2025 9:43 AM EDT [facility] orthopedics note states that that office placed physical therapy referral and gave the pt business card with the info. Called pt who stated that he may have lost the card. He is asking for PT1 for physical therapy appts. Advised him to call [facility] orthopedics to clarify where the PT referral was made and call [facility] back with that info so that PT1 referral can be made. Pt verbalized understanding, to call back [facility]. * Telephone Encounter - Joie Gaytan - 03/10/2025 12:58 PM EDT Tc from pt requesting Physical Therapy referral due to Right Rotator Cuff repair surgery. documented in this encounter Plan of Treatment Upcoming Encounters Date Type Department Care Team (Late st Contact Info) Description 07/29/2025 10:15 AM EDT Office Visit [facility] MEDICINE [address] [place], [place] [phone] Anil Metzger MD [address] [place] [address] documented as of this encounter Visit Diagnoses Not on filedocumented in this encounter Additional Health Concerns Assessment Noted Time PHQ-9 Depression Total Score: 0 05/29/20 23 11:15 AM EDT documented as of this encounter Care Teams Import Export Clerk Relationship Specialty Start Date End Date Lana Couch FNP [address] [place] [address] PCP - General Family Medicine 01/28/23 documented as of this encounter
--- OUTSIDE RECORDS SUMMARY | 2025-07-01 10:14 | XMS_ITS | Encounter Summary ---
Author Organization [facility] Address [address] [facility] 7t [place] [address] Care Team Providers Care Box Blank Machine Feeder Name Role Phone Lana Couch Primary Care Provider [phone] Reason for Visit * Reason Onset Date Comments fyi 03/18/2025 Encounter Details Date Type Department Care Team (Late st Contact Info) Description 03/18/2025 Telephone [facility] [address] [place] [address] Lana Couch FNP [address] [place], [place] [phone] fyi Social History Tobacco Use Types Packs/Day Years [...] encounter Miscellaneous Notes * Telephone Encounter - Zoey Gaines - 03/18/2025 3:28 PM EDT Telephone call from patient reporting he received a text message notifying him of a scheduled appointment for 03/25/2025 he was not aware of and was unsure of its purpose. News Camera Person reviewed appointmentnotes and notify pt it was for rash who responded, Cancel that crap, don't need that, requesting cancellation documented in this encounter Plan of Treatment Upcoming Encounters Date Type Department Care Team (Late st Contact Info) Description 07/29/2025 10:15 AM EDT Office Visit [facility] [address] [place] [address] Anil Metzger MD [address] [place] [address] documented as of this encounter Visit Diagnoses Not on filedocumented in this encounter Additional Health Concerns Assessment Noted Time PHQ-9 Depression Total Score: 0 05/29/20 11:15 AM EDT documented as of this encounter Care Teams Box Blank Machine Feeder Relationship Specialty Start Date End Date Lana Couch FNP [address] [place] [address] PCP - General Family Medicine 01/28/23 documented as of this encounter
--- OUTSIDE RECORDS SUMMARY | 2025-07-01 10:14 | XMS_ITS | Encounter Summary ---
Author Organization [facility] Address [address] [facility] 7t [place] [address] Care Team Providers Care Residential Solar Sales Consultant Name Role Phone Lana Couch Primary Care Provider [phone] Reason for Visit * Reason Onset Date Comments PT1 03/10/2025 Encounter Details Date Type Department Care Team (Late st Contact Info) Description 03/10/2025 Telephone [facility] MED[facility]INE [address] [place] [address] Lana Couch FNP [address] [place], [place] [phone] PT1 Social History Tobacco Use Types Packs/Day Years [...] with others, in a hotel, in a [place] [facility], living outside on the street, on a [...] encounter Miscellaneous Notes * Telephone Encounter - Joie Gaytan - 03/10/2025 12:50 PM EDT Patient calling requesting PT1 Home Address verified: Y/N: Yes Provider name or facility name: [address], [place] [address] Escort needed: Y/N: No Do you have a wheelchair: Y/N: No If yes- Manual or electric: N/A Visits: (2x monthly) Patient calling requesting PT1 Home Address verified: Y/N: Yes Provider name or facility name: [address] [address] Escort needed: Y/N: No Do you have a wheelchair: Y/N: No If yes- Manual or electric: N/A Visits: (1x monthly) Patient calling requesting PT1 Home Address verified: Y/N: Yes Provider name or facility name: [facility] [address] [facility] [address] Escort needed: Y/N: No Do you have a wheelchair: Y/N: No If yes- Manual or electric: N/A Visits: (2x monthly) documented in this encounter Plan of Treatment Upcoming Encounters Date Type Department Care Team (Late st Contact Info) Description 07/29/2025 10:15 AM EDT Office Visit [address] [address] Anil Metzger MD [address] [place] [address] documented as of this encounter Visit Diagnoses Not on filedocumented in this encounter Additional Health Concerns Assessment Noted Time PHQ-9 Depression Total Score: 0 05/29/20 11:15 AM EDT documented as of this encounter Care Teams Residential Solar Sales Consultant Relationship Specialty Start Date End Date Lana Couch FNP [address] [place] [address] PCP - General Family Medicine 01/28/23 documented as of this encounter
--- OUTSIDE RECORDS SUMMARY | 2025-07-01 10:14 | XMS_ITS | Encounter Summary ---
Author Organization [facility] [facility] Address [address] [facility] 7t [place] [address] Care Team Providers Care Field Service Representative Name Role Phone Lana Couch Primary Care Provider [phone] Reason for Visit * Reason Onset Date Comments Pre op 01/28/2025 Encounter Details Date Type Department Care Team (Late st Contact Info) Description 01/28/2025 Telephone [facility] MEDICINE [address] [place] [address] Lana Couch FNP [address] [place], [place] [phone] Pre op Social History Tobacco Use Types [...] Yes Surgeon's name: Dr.Noah Barcenas Facility name: [facility] Surgeon's office number: [phone] Surgeon's office fax number: [phone] Contact name (person you spoke with): Leann Last office note from surgeon requested: Yes Send Message to Sharon Zheng and Ricardo Javier Pt was Cleared by [facility] Cardiology. Contact Leann at [phone] documented in this encounter Plan of Treatment Upcoming Encounters Date Type Department Care Team (Late st Contact Info) Description 07/29/2025 10:15 AM EDT Office Visit [facility] MEDICINE [address] [place] [address] Anil Metzger MD [address] [place] [address] documented as of this encounter Visit Diagnoses Not on filedocumented in this encounter Additional Health Concerns Assessment Noted Time PHQ-9 Depression Total Score: 0 05/29/20 11:15 AM EDT documented as of this encounter Care Teams Field Service Representative Relationship Specialty Start Date End Date Lana Couch FNP [address] [place] [address] PCP - General Family Medicine 01/28/23 documented as of this encounter
--- OUTSIDE RECORDS SUMMARY | 2025-07-01 10:14 | XMS_ITS | Encounter Summary ---
Author Organization [employer] [facility] Address [address] [facility] [address] 7[address] [place] [address] Care Team Providers Care Induction Machine Setter Name Role Phone Lana Couch Primary Care Provider [phone] Encounter Details Date Type Department Care Team (Late st Contact Info) Description 03/18/2025 Telephone [facility] MEDICINE [address] [place] [address] Lana Couch FNP [address] [place], [place] [phone] Social History Tobacco Use Types Packs/Day Years [...] with others, in a hotel, in a [facility], living outside on the street, on a [...] Description 07/29/2025 10:15 AM EDT Office Visit [facility] MEDICINE [address] [place] [address] Anil Metzger MD [address] [place] [address] documented as of this encounter Visit Diagnoses Not on filedocumented in this encounter Additional Health Concerns Assessment Noted Time PHQ-9 Depression Total Score: 0 05/29/20 23 11:15 AM EDT documented as of this encounter Care Teams Induction Machine Setter Relationship Specialty Start Date End Date Lana Couch FNP [address] [place] [address] PCP - General Family Medicine 01/28/23 documented as of this encounter
--- OUTSIDE RECORDS SUMMARY | 2025-07-01 10:14 | XMS_ITS | Encounter Summary ---
Author Organization [facility] Address [address] [place] [address] Care Team Providers Care Manager Photo Name Role Phone Bella Cool RN Unavailable [phone] Yemi Robin DO Unavailable Yemi Robin DO Primary Care Provider [phone] Encounter Details Date Type Department Care Team (Late st Contact Info) Description 10/22/2016 Scanned Document [facility] [address] [address] Bella Cool, JOHN [address] [phone] Social History Tobacco Use Types Packs/Day Years [...] on filedocumented in this encounter Care Teams Manager Photo Relationship Specialty Start Date End Date Yemi Robin DO [address] [place] [address] [address] [place] [address] PCP - General Internal Medicine 12/17/16 Bella Cool, RN [address] [address] Registered Nurse Hepatology 10/22/16 Yemi Robin DO [address] [facility] [address] [place] [address] Internal Medicine 10/22/16 documented as of this encounter
--- OUTSIDE RECORDS SUMMARY | 2025-07-01 10:15 | XMS_ITS | Encounter Summary ---
Author Organization [employer] Address [address] [facility] 7t [place] [address] Care Team Providers Care Paralegal Assistant Name Role Phone Lana Couch GRECIA Primary Care Provider [phone] Encounter Details Date Type Department Care Team (Latest Contact Info) Description 07/01/2025 Travel Social History Tobacco Use Types Packs/Day [...] Description 07/29/2025 10:15 AM EDT Office Visit [facility] MEDICINE [address] [place] [address] Anil Metzger MD [address] [place] [address] documented as of this encounter Visit Diagnoses Not on filedocumented in this encounter Additional Health Concerns Assessment Noted Time PHQ-9 Depression Total Score: 7 06/24/20 25 3:12 PM EDT documented as of this encounter Care Teams Paralegal Assistant Relationship Specialty Start Date End Date Lana Couch FNP [address] [place] [address] PCP - General Family Medicine 01/28/23 documented as of this encounter
--- OUTSIDE RECORDS SUMMARY | 2025-07-01 10:15 | XMS_ITS | Clinical Summary ---
Author Organization [facility] Address [address] [place] [address] Care Team Providers Care Tour Operator Name Role Phone Yemi Robin DO Primary Care Provider [phone] Allergies No known active allergies Medications Medication [...] nasal spray 0 10/20/2017 Active Lactobacillus-Inuli n ([facility]) CAPS 0 10/20/2017 Active Magnesium [...] this topic Medical Devices Implanted Type Area Exterior Work Helper Device Identifier Shelf Expiration Date Model / Serial / Lot Duramatrix Onlay Plus 1x1 - [id number] - [id number] Implanted:Qty: 1 on 12/13/2016 by Shade Chawla DO [facility] Left: Spine Lumbar ANNIKA IAN 04/11/2017 [id number] / / [id number] Care Teams Tour Operator Relationship Specialty Start Date End Date Yemi Robin DO [address] [place] [address] PCP - General Internal Medicine 01/06/15
--- OUTSIDE RECORDS SUMMARY | 2025-07-01 10:15 | XMS_ITS | Encounter Summary ---
Author Organization [employer] Address 75 [facility] 7t [place] [address] Care Team Providers Care Recording Engineer Name Role Phone Lana Couch Primary Care Provider [phone] Reason for Visit * Reason Onset Date Comments Pt1 05/16/2023 Encounter Details Date Type Department Care Team (Late st Contact Info) Description 05/16/2023 Telephone [facility] MEDICINE [address] [place] [address] Lana Couch FNP [address] [place] [address] Pt1 Social History Tobacco Use Types Packs/Day [...] Hafsa Coello - 05/16/2023 2:00 PM EDT [employer] Front Desk Clerk left message for pt stating to call PT1 today to schedule pickup for 05/20/23. Per PT1 policy you must call at least 3 days in advance to schedule transportation. * Telephone Encounter - Hafsa Coello - 05/16/2023 1:58 PM EDT Patient will recieve approval / denial letter via mail. PT-1 Request [id number] [address] [address] * Telephone Encounter - Carly Brown - 05/16/2023 1:02 PM EDT Tc from pt requesting a pt1 Location: [address] [place] [address] Specialty: Urology Date&Time: 05/20/23 Tool Supervisor: no * Telephone Encounter - Carly Brown - 05/16/2023 12:52 PM EDT Tc from pt requesting a pt1 Location: [address] [place] [address] Specialty: Urology Date&Time: 05/20/23 Tool Supervisor: no documented in this encounter Plan of Treatment Upcoming Encounters Date Type Department Care Team (Late st Contact Info) Description 07/29/2025 10:15 AM EDT Office Visit [facility] MEDICINE [address] [place] [address] Anil Metzger MD 230 [place] [address] documented as of this encounter Visit Diagnoses Not on filedocumented in this encounter Care Teams Recording Engineer Relationship Specialty Start Date End Date Lana Couch FNP [address] [place] [address] PCP - General Family Medicine 01/28/23 documented as of this encounter
--- OUTSIDE RECORDS SUMMARY | 2025-07-01 10:15 | XMS_ITS | Encounter Summary ---
Author Organization [employer] Address 75 [facility] 7t [place] [address] Care Team Providers Care Integrated Circuit Layout Designer Name Role Phone Lana Couch GRECIA Primary Care Provider [phone] Reason for Visit * Reason Comments Med Refill Encounter Details Date Type Department Care Team (Late st Contact Info) Description 09/02/2024 Refill [facility] [address] [place], [place] [phone] Aditya Summers MD [address] [place], [place] [phone] Social History Tobacco Use Types Packs/Day Years [...] Description 07/29/2025 10:15 AM EDT Office Visit [facility] MED[facility]INE [address] [place] [address] Anil Metzger MD [address] [place] [address] documented as of this encounter Visit Diagnoses Not on filedocumented in this encounter Additional Health Concerns Assessment Noted Time PHQ-9 Depression Total Score: 0 05/29/20 11:15 AM EDT documented as of this encounter Care Teams Integrated Circuit Layout Designer Relationship Specialty Start Date End Date Lana Couch FNP [address] [place] [address] PCP - General Family Medicine 01/28/23 documented as of this encounter
--- OUTSIDE RECORDS SUMMARY | 2025-07-01 10:15 | XMS_ITS | Encounter Summary ---
Author Organization [facility] Address [address] [place] [address] Care Team Providers Care Insurance Billing Clerk Name Role Phone Bella Cool RN Unavailable [phone] Yemi Robin DO Unavailable Yemi Robin DO Primary Care Provider [phone] Encounter Details Date Type Department Care Team (Late st Contact Info) Description 2019 Scanned Document [facility] [address] [address] Provider, MD Bro [address] [place] [address] Social History Tobacco Use Types Packs/Day Years [...] on filedocumented in this encounter Care Teams Insurance Billing Clerk Relationship Specialty Start Date End Date Yemi Robin DO [address] [place] [address] [address] [place] [address] PCP - General Internal Medicine 12/17/16 Bella Cool, RN 85 [facility] [address] [place], [place] [phone] Registered Nurse Hepatology 10/22/16 Yemi Robin DO 863 [facility] 103 [place] [address] Internal Medicine 10/22/16 documented as of this encounter
--- OUTSIDE RECORDS SUMMARY | 2025-07-01 10:15 | XMS_ITS | Encounter Summary ---
Author Organization [employer] Address 75 [facility] 7t [place] [address] Care Team Providers Care Concrete Precast Moulder Name Role Phone Lana Couch Primary Care Provider [phone] Reason for Visit * Reason Onset Date Comments Appointment Request 09/22/2023 Encounter Details Date Type Department Care Team ([facility] st Contact Info) Description 09/22/2023 Telephone [facility] MEDICINE [address] [place] [address] Lana Couch FNP [address] [place], [place] [phone] Appointment Request Social History Tobacco Use Types [...] Description 07/29/2025 10:15 AM EDT Office Visit [facility] MEDICINE [address] [place] [address] Anil Metzger MD [address] [place] [address] documented as of this encounter Visit Diagnoses Not on filedocumented in this encounter Additional Health Concerns Assessment Noted Time PHQ-9 Depression Total Score: 0 05/29/20 23 11:15 AM EDT documented as of this encounter Care Teams Concrete Precast Moulder Relationship Specialty Start Date End Date Lana Couch FNP 230 [place] [address] PCP - General Family Medicine 01/28/23 documented as of this encounter
--- OUTSIDE RECORDS SUMMARY | 2025-07-01 10:15 | XMS_ITS | Encounter Summary ---
Author Organization [employer] Address 75 [facility] 7t [place] [address] Care Team Providers Care Farm Equipment Mechanic Apprentice Name Role Phone Lana Couch Primary Care Provider [phone] Reason for Visit * Reason Onset Date Comments PT-1 05/31/2025 Encounter Details Date Type Department Care Team (Late st Contact Info) Description 05/31/2025 Telephone [facility] MEDICINE [address] [place] [address] Lana Couch FNP [address] [place], [place] [phone] PT-1 Social History Tobacco Use Types Packs/Day Years Used Date Smoking Tobacco: Every Day Cigarettes Passive Smoke Exposure: Current Smokeless Tobacco: Never Alcohol Use Standard Drinks/Week Comments Yes 0 (1 standard drink = 0.6 oz pur e alcohol) Depression Answer Date Recorded Patient Health Questionnaire-9 Score 0 05/29/2023 Housing Stability Answer Date Recorded What is your housing situation today? I have sengcynthia bustos 05/10/[address] you [...] Recorded Patient Health Questionnaire-2 Score 0 05/29/2023 Internet Access Answer Date Recorded Internet Access [...] Miscellaneous Notes * Telephone Encounter - Heath Galvan - 05/31/2025 2:28 PM EDT Patient calling requesting PT1 Home Address verified: Y/N: Yes Provider name or facility name: [facility] Facility Address: [address] [place] [address] Escort needed: Y/N: No Do you have a wheelchair: Y/N: No If yes- Manual or electric: N/A Visits: twice a month - Patient calling requesting PT1 Home Address verified: Y/N: Yes Provider name or facility name: [facility] Facility Address: [address] [place] [address] Escort needed: Y/N: No Do you have a wheelchair: Y/N: No If yes- Manual or electric: N/A Visits: Twice a month - Patient calling requesting PT1 Home Address verified: Yes Provider name or facility name: Gab Barcenas MD Facility Address: [address] [place] [address] [address], [place] [address] Escort needed: Y/N: No Do you have a wheelchair: Y/N: No If yes- Manual or electric: N/A Visits: once a month documented in this encounter Plan of Treatment Upcoming Encounters Date Type Department Care Team ([facility] st Contact Info) Description 07/29/2025 10:15 AM EDT Office Visit [facility] MEDICINE [address] [place] [address] Anil Metzger MD [address] [place] [address] documented as of this encounter Visit Diagnoses Not on filedocumented in this encounter Additional Health Concerns Assessment Noted Time PHQ-9 Depression Total Score: 0 05/29/20 11:15 AM EDT documented as of this encounter Care Teams Farm Equipment Mechanic Apprentice Relationship Specialty Start Date End Date Lana Couch FNP [address] [place] [address] PCP - General Family Medicine 01/28/23 documented as of this encounter
--- OUTSIDE RECORDS SUMMARY | 2025-07-01 10:15 | XMS_ITS | Encounter Summary ---
Author Organization [employer] Address 75 [facility] 7t [place] [address] Care Team Providers Care Gas Meter Mechanic Name Role Phone Lana Couch Primary Care Provider [phone] Reason for Visit * Reason Onset Date Comments Verbal Orders 02/04/2023 Encounter Details Date Type Department Care Team ([facility] st Contact Info) Description 02/04/2023 Telephone [facility] MEDICINE [address] [place] [address] Lana Couch FNP [address] [place] [address] Verbal Orders Social History Tobacco Use Types [...] - 02/04/2023 11:43 AM EDT Tc from [facility] requesting some Verbal orders regarding pt Please contact at [phone] documented in this encounter Plan of Treatment Upcoming Encounters Date Type Department Care Team (Late st Contact Info) Description 07/29/2025 10:15 AM EDT Office Visit [facility] MEDICINE [address] [place] [address] Anil Metzger MD [address] [place] [address] documented as of this encounter Visit Diagnoses Not on filedocumented in this encounter Care Teams Gas Meter Mechanic Relationship Specialty Start Date End Date Lana Couch FNP [address] [place] [address] PCP - General Family Medicine 01/28/23 documented as of this encounter
--- OUTSIDE RECORDS SUMMARY | 2025-07-01 10:15 | XMS_ITS | Encounter Summary ---
Author Organization [employer] Address [address] [facility] [address] 7t [place] [address] Care Team Providers Care Sqe Name Role Phone Lana Couch Primary Care Provider [phone] Reason for Visit * Reason Comments Care Coordination CHW outreach for SDO H PT-1 and food needs-referral completed Encounter Details Date Type Department Care Team (Latest Contact Info) Description 06/30/2025 Patient Outreach [facility] MEDICINE [address] [place] [address] Lana Couch FNP [address] [place] [address] Care Coordination (CHW outreach for SDOH PT-1 and food needs-referral completed /) Social History Tobacco Use Types Packs/Day Years [...] as of this encounter Progress Notes * Iban Durán - 06/30/2025 11:47 AM EDT CHW Iban Durán, placed outbound call to patient for assistance with SDOH as a referral was received by the provider. Patient's name and were confirmed. Patient screened positive for the following SDOH food insecurities. CHW referral patient to the local list of pantries in the area for help. PT-1 requested was send out in behalf of patient for Nursenav appt. Patient verbalizes understandin g, and able to agree with plan to follow up. Patient educated on extended clinic hours on Mondays through Wednesdays, and Walk-In Urgent Care Located in [facility] of [facility]. Patient provided with after-hours line for [facility], , which offer night time triage service and option to transfer to aqua ammonia operator provider if needed. documented in this encounter Plan of Treatment Upcoming Encounters Date Type Department Care Team (Late st Contact Info) Description 07/29/2025 10:15 AM EDT Office Visit [facility] MEDICINE [address] [place] [address] Anil Metzger MD [address] [place] [address] documented as of this encounter Visit Diagnoses Not on filedocumented in this encounter Additional Health Concerns Assessment Noted Time PHQ-9 Depression Total Score: 7 06/24/20 25 3:12 PM EDT documented as of this encounter Care Teams Sqe Relationship Specialty Start Date End Date Lana Couch FNP [address] [place] [address] PCP - General Family Medicine 01/28/23 documented as of this encounter
--- OUTSIDE RECORDS SUMMARY | 2025-07-01 10:15 | XMS_ITS | Encounter Summary ---
Author Organization [employer] Address 75 [facility] 7t [place] [address] Care Team Providers Care Swatch Folder Name Role Phone Lana Couch GRECIA Primary Care Provider Reason for Visit * Reason Onset Date Comments Med Refill 06/24/2025 Encounter Details Date Type Department Care Team (Late st Contact Info) Description 06/24/2025 Refill [facility] MEDICINE [address] [place] [address] Macie Mcgregor RN Uncomplicated opioid dependence (CMS/HCC) [...] AM EDT documented as of this encounter Functional Status * Over the past 2 weeks, how often have you been bothered by any of the following problems? Question Answer Date of Assessment Author Patient Health Questionnaire-2 Score 2 06/13 3:12 PM EDT Abena Bal MA * Little interest or pleasure in doing things Answer Date of Assessment Author More than half the days 06/24/2025 3:12 PM EDT Abena Gambino MA * Feeling down, depressed, or hopeless Answer Date of Assessment Author Not at all 06/24/2025 3:12 PM EDT Marline Bal MA * Trouble falling or staying asleep, or sleeping too much Answer Date of Assessment Author More than half the days 06/24/2025 3:12 PM EDT Abena Gambino MA * Feeling tired or having little energy Answer Date of Assessment Author Nearly every day 06/24/2025 3:12 PM EDT Chapito Bal MA * Poor appetite or overeating Answer Date of Assessment Author Not at all 06/24/2025 3:12 PM EDT Marline Bal MA * Feeling bad about yourself - or that you are a failure or have let yourself or your family down Answer Date of Assessment Author Not at all 06/24/2025 3:12 PM EDT Marline Bal MA * Trouble concentrating on things, such as reading the newspaper or watching television Answer Date of Assessment Author Not at all 06/24/2025 3:12 PM EDT Marline Bal MA * Moving or speaking so slowly that other people could have noticed? Or the opposite - being so fidgety or restless that you have been moving around a lot more than usual. Answer Date of Assessment Author Not at all 06/24/2025 3:12 PM EDT Marline aBl MA * Thoughts that you would be better off or hurting yourself in some way Answer Date of Assessment Author Not at all 06/24/2025 3:12 PM EDT Marline Bal MA * Patient Health Questionnaire-9 Score Answer Date of Assessment Author 7 06/24/2025 3:12 PM EDT Marline Bal MA * How difficult have these problems made it for you to do your work, take care of things at home, or get along with other people? Answer Date of Assessment Author Not difficult at all 06/24/2025 3:12 PM EDT Abena Porter MA documented as of this encounter Plan of Treatment Upcoming Encounters Date Type Department Care Team (Late st Contact Info) Description 07/29/2025 10:15 AM EDT Office Visit [facility] MEDICINE [address] [place] [address] Anil Metzger MD [address] [place] [address] documented as of this encounter Visit Diagnoses Diagnosis Uncomplicated opioid dependence (CMS/HCC) documented in this encounter Additional Health Concerns Assessment Noted Time PHQ-9 Depression Total Score: 7 06/24/20 25 3:12 PM EDT documented as of this encounter Care Teams Swatch Folder Relationship Specialty Start Date End Date Lana Couch FNP [address] [place] [address] PCP - General Family Medicine 01/28/23 documented as of this encounter
--- OUTSIDE RECORDS SUMMARY | 2025-07-01 10:15 | XMS_ITS | Encounter Summary ---
Author Organization [employer] Address 75 [facility] 7t [place] [address] Care Team Providers Care Commissioner Of Internal Revenue Name Role Phone Lana Couch Primary Care Provider [phone] Reason for Visit * Reason Onset Date Comments Nurse Triage 12/15/2023 Encounter Details Date Type Department Care Team ([facility] st Contact Info) Description 12/15/2023 Telephone [facility] MED & PEDS [address] [place], [place] [phone] Lana Couch FNP 505 [place] [address] Nurse Triage Social History Tobacco Use Types [...] Dorman - 12/31/2023 7:38 AM EDT Reviewed [facility] ED notes, there was concern for possible pulmonary nodules. Pt will require ED follow up visit to discuss next steps for imaging regarding lungs and shoulder. Thank you. * Telephone Encounter - Vee Lovelace RN - 12/19/2023 1:24 PM EST [facility] ED notes received and scanned into chart. Pt informed of need to be seen prior to MRI being ordered. Pt agrees to sick appt next week. * Telephone Encounter - GRECIA Dorman - 12/19/2023 12:02 PM EST Please call pt to let him know that we are still waiting on ED note from [facility]. If sufficient documentation, insurance may approve MRI [...] not yet received. Faxed ED request to [facility] again and will scan into chart once it arrives for PCP review. * Telephone Encounter - Yara Geller - 12/17/2023 2:51 PM EST Tc from pt requesting MR order for shoulder pain. * Telephone Encounter - GRECIA Dorman - 12/16/2023 9:05 PM EST I will need some degree of documentation in order for further imaging to be ordered/approved through insurance. If [facility] ED note sufficient, I may be able to place order directly. [facility] * Telephone Encounter - Ericka Molina LPN - 12/15/2023 2:53 PM EST Please obtain notes from [facility] ED date 12/13/23. No appt scheduled at this time patient reports xray was completed at time of visit. * Telephone Encounter - Ericka Molina LPN - 12/15/2023 2:52 PM EST Triage call returned to patient for reported shoulder pain. Patient reports that he fell 2 days agowas seen in [facility] ED and had xray completed. is in a sling and reports i know my body i did not break anything i tore something in my shoulder . No ED report on file at time of call. No PCPor Team appts available. Patient does not want any further advice and request only a referral for MRI. Unable to complete triage at time of call. [facility] ED records requested. No appts booked as [...] accepted this outcome Please contact pt @ [phone] documented in this encounter Plan of Treatment Upcoming Encounters Date Type Department Care Team ([facility] st Contact Info) Description 07/29/2025 10:15 AM EDT Office Visit [facility] MEDICINE [address] [place] [address] Anil Metzger MD [address] [place] [address] documented as of this encounter Visit Diagnoses Not on filedocumented in this encounter Additional Health Concerns Assessment Noted Time PHQ-9 Depression Total Score: 0 05/29/20 23 11:15 AM EDT documented as of this encounter Care Teams Commissioner Of Internal Revenue Relationship Specialty Start Date End Date Lana Couch FNP [address] [place] [address] PCP - General Family Medicine 01/28/23 documented as of this encounter
--- OUTSIDE RECORDS SUMMARY | 2025-07-01 10:15 | XMS_ITS | Encounter Summary ---
Author Organization [employer] Address 75 [facility] 7t [place] [address] Care Team Providers Care Marketing Financial Analyst Name Role Phone Lana Couch Primary Care Provider [phone] Reason for Visit * Reason Onset Date Comments Pt1 12/31/2022 Encounter Details Date Type Department Care Team ([facility] st Contact Info) Description 12/31/2022 Telephone [facility] MEDICINE [address] [place] [address] Lana Couch FNP [address] [place] [address] Pt1 Social History Tobacco Use Types Packs/Day [...] requesting a PT1 PT1 Name of facility: [facility] Specialty: Appt Location: [address] [place] [address] Date: n/a Time: n/a fax: n/a Phone: n/a wheelchair: n/a Shoe Stitcher: n/a documented in this encounter Plan of Treatment Upcoming Encounters Date Type Department Care Team (Late st Contact Info) Description 07/29/2025 10:15 AM EDT Office Visit [facility] MEDICINE [address] [place] [address] Anil Metzger MD [address] [place] [address] documented as of this encounter Visit Diagnoses Diagnosis Opioid abuse (CMS/[facility]) Nondependent opioid abuse, unspecified documented in this encounter Care Teams Marketing Financial Analyst Relationship Specialty Start Date End Date Lana Couch FNP [address] [place] [address] PCP - General Family Medicine 01/28/23 documented as of this encounter
--- OUTSIDE RECORDS SUMMARY | 2025-07-01 10:15 | XMS_ITS | Encounter Summary ---
Author Organization [employer] [facility] Address 75 [facility] 7t [place] [address] Care Team Providers Care Clark Driver Name Role Phone Lana Couch Primary Care Provider [phone] Encounter Details Date Type Department Care Team (Late Contact Info) Description 02/07/2023 Orders Only [facility] MEDICINE [address] [place] [address] Ying Rudolph RN Social History Tobacco Use [...] Description 07/29/2025 10:15 AM EDT Office Visit [facility] MEDICINE [address] [place] [address] Anil Metzger MD [address] [place] [address] documented as of this encounter Visit Diagnoses Not on filedocumented in this encounter Care Teams Clark Driver Relationship Specialty Start Date End Date Lana Couch FNP [address] [place] [address] PCP - General Family Medicine 01/28/23 documented as of this encounter
--- OUTSIDE RECORDS SUMMARY | 2025-07-01 10:15 | XMS_ITS | Encounter Summary ---
Author Organization [employer] Address 75 [facility] 7t [place] [address] Care Team Providers Care It Compliance Analyst Name Role Phone Lana Couch Primary Care Provider [phone] Reason for Visit * Reason Onset Date Comments pt1 06/30/2025 Encounter Details Date Type Department Care Team ([facility] st Contact Info) Description 06/30/2025 Telephone [facility] MED & PEDS [address] [place], [place] [phone] Lana Couch FNP [address] [place] [address] pt1 Social History Tobacco Use Types Packs/Day Years [...] encounter Miscellaneous Notes * Telephone Encounter - Joy Wright - 06/30/2025 11:38 AM EDT Patient calling requesting PT1 Home Address verified: Y/N: Yes Provider name or facility name: [address] [place] [address] Escort needed: Y/N: No Do you have a wheelchair: Y/N: No If yes- Manual or electric: Visits: 2x a month documented in this encounter Plan of Treatment Upcoming Encounters Date Type Department Care Team (Late st Contact Info) Description 07/29/2025 10:15 AM EDT Office Visit [facility] MEDICINE [address] [place] [address] Anil Metzger MD [address] [place] [address] documented as of this encounter Visit Diagnoses Not on filedocumented in this encounter Additional Health Concerns Assessment Noted Time PHQ-9 Depression Total Score: 7 06/24/20 25 3:12 PM EDT documented as of this encounter Care Teams It Compliance Analyst Relationship Specialty Start Date End Date Lana Couch FNP [address] [place] [address] PCP - General Family Medicine 01/28/23 documented as of this encounter
--- OUTSIDE RECORDS SUMMARY | 2025-07-01 10:15 | XMS_ITS | Encounter Summary ---
Author Organization [employer] Address [address] [facility] [address] [place] [address] Care Team Providers Care Siene Maker Name Role Phone Lana Couch Primary Care Provider [phone] Encounter Details Date Type Department Care Team (Late st Contact Info) Description 03/24/2023 Orders Only [facility] [address] [place] [address] Lana Couch FNP [address] [place] [address] Social History Tobacco Use Types Packs/Day Years [...] Description 07/29/2025 10:15 AM EDT Office Visit [facility] [address] [place] [address] Anil Metzger MD [address] [place] [address] documented as of this encounter Visit Diagnoses Not on filedocumented in this encounter Care Teams Siene Maker Relationship Specialty Start Date End Date Lana Couch FNP [address] [place] [address] PCP - General Family Medicine 01/28/23 documented as of this encounter
--- OUTSIDE RECORDS SUMMARY | 2025-07-01 10:15 | XMS_ITS | Encounter Summary ---
Author Organization [employer] Address [address] [place] [address] Care Team Providers Care Greeting Card Editor Name Role Phone Lana Couch Primary Care Provider [phone] Encounter Details Date Type Department Care Team (Late st Contact Info) Description 06/02/2025 Telephone [facility] [address] [place] [address] Lana Couch FNP [address] [place], [place] [id number] Social History Tobacco Use Types Packs/Day Years [...] Description 07/29/2025 10:15 AM EDT Office Visit [facility] [address] [place] [address] Anil Metzger MD [address] [place] [address] documented as of this encounter Visit Diagnoses Not on filedocumented in this encounter Additional Health Concerns Assessment Noted Time PHQ-9 Depression Total Score: 0 05/29/20 23 11:15 AM EDT documented as of this encounter Care Teams Greeting Card Editor Relationship Specialty Start Date End Date Lana Couch FNP [address] [place] [address] PCP - General Family Medicine 01/28/23 documented as of this encounter
--- OUTSIDE RECORDS SUMMARY | 2025-07-01 10:15 | XMS_ITS | Encounter Summary ---
Author Organization [email or web address] Address [address] [facility] [address] [place] [address] Care Team Providers Care Patient Flow Coordinator Name Role Phone Lana Couch Primary Care Provider [phone] Reason for Visit * Reason Onset Date Comments Letter for School/Work 05/05/2023 Encounter Details Date Type Department Care Team ([facility] st Contact Info) Description 05/05/2023 Telephone [facility] [address] [place] [address] Lana Couch FNP [address] [place], [place] [id number] Letter for School/Work Social History Tobacco Use [...] pt medical conditions. Please contact pt at [phone] documented in this encounter Plan of Treatment Upcoming Encounters Date Type Department Care Team (Late st Contact Info) Description 07/29/2025 10:15 AM EDT Office Visit [facility] [address] [place] [address] Anil Metzger MD [address] [place] [address] documented as of this encounter Visit Diagnoses Not on filedocumented in this encounter Care Teams Patient Flow Coordinator Relationship Specialty Start Date End Date Lana Couch FNP [address] [place] [address] PCP - General Family Medicine 01/28/23 documented as of this encounter
--- OUTSIDE RECORDS SUMMARY | 2025-07-01 10:15 | XMS_ITS | Encounter Summary ---
Author Organization [employer] Address [address] [facility] [address] [place] [address] Care Team Providers Care Jboss Developer Name Role Phone Lana Couch Primary Care Provider [phone] Reason for Referral * Consultation (Routine) - Authorized Specialty Diagnoses / Procedures Referred By Contac t Referred To Contact Neurosurgery Diagnoses Lumbar radiculopathy Lumbar nerve root impingement Lana Couch FNP [address] [place] [address] Phone: tel: fax: Neurosurgery, [address] [place], [place] Phone: tel: fax: Referral ID Status Reason Start Date Expiration Date Visits Requested Visits Authorized [id number] Authorized Specialty Services Required 06/17/2025 06/17/2026 1 1 * Consultation (Routine) - Authorized Specialty Diagnoses / Procedures Referred By Contac t Referred To Contact Pain Medicine Diagnoses Lumbar radiculopathy Lumbar nerve root impingement Lana Couch FNP [address] [place] [address] Phone: tel: fax: [facility] [address] [place] [address] Phone: tel: fax: Referral ID Status Reason Start Date Expiration Date Visits Requested Visits Authorized [id number] Authorized Specialty Services Required 06/17/2025 06/17/2026 1 1 Encounter Details Date Type Department Care Team ([facility] st Contact Info) Description 06/17/2025 Results Follow-Up [facility] [address] [place] [address] Lana Couhc, POWER TRANSFORMER REPAIR SUPERVISOR [address] [place] [address] MR Lumbar Spine w/o Contrast Social History Tobacco Use Types Packs/Day Years [...] Upcoming Encounters Date Type Department Care Team ([facility] st Contact Info) Description 07/29/2025 10:15 AM EDT Office Visit [facility] [address] [place] [address] Anil Metzger MD [address] [place] [address] Scheduled Referrals Name Type Priority Associated Diagnoses Orde r Schedule Referral to Pain Medicine Outpatient Referral Routine Lumbar radiculopathy Lumbar nerve root impingement Expected: 06/17/2025 (Approximate), Expires: 06/17/2026 Referral to Neurosurgery Outpatient Referral Routine Lumbar radiculopathy Lumbar nerve root impingement Expected: 06/17/2025 (Approximate), Expires: 06/17/2026 documented as of this encounter Visit Diagnoses Diagnosis Lumbar radiculopathy- Primary Thoracic or lumbosacral neuritis or radiculitis, unspecified Lumbar nerve root impingement Thoracic or lumbosacral neuritis or radiculitis, unspecified documented in this encounter Additional Health Concerns Assessment Noted Time PHQ-9 Depression Total Score: 0 05/29/20 23 11:15 AM EDT documented as of this encounter Care Teams Jboss Developer Relationship Specialty Start Date End Date Lana Couch FNP [address] [place] [address] PCP - General Family Medicine 01/28/23 documented as of this encounter
--- OUTSIDE RECORDS SUMMARY | 2025-07-01 10:15 | XMS_ITS | Clinical Summary ---
Author Organization [employer] Address [address] [facility] [address] [place] [address] Care Team Providers Care Sorter Laundry Articles Name Role Phone Lana Couch GRECIA Primary Care Provider [phone] Allergies No known active allergies Medications * This document contains information received from the source organization and may not represent a complete record from that organization. triamcinolone (Kenalog) 0.1 % cream Apply topically 2 times daily. 15 g 1 09/24/20 24 Active Blood Pressure kit 1 each 2 times daily. 1 kit 09/24/20 24 025 Active ketoconazole (NIZOral) 2 % cream Apply twice daily for rash 60 g 02/19/20 25 Active mupirocin (Bactroban) 2 % ointment APPLY TWICE A DAY FOR 7 DAYS 08/12/20 17 Active nicotine (Nicoderm CQ) 21 MG/24HR patchIndications :Tobacco use Place 1 patch on the skin 1 (one) time each day at the same time. 30 patch 04/21/20 25 Active folic acid (Folvite) 1 MG tabletIndication s:Alcohol use disorder Take 1 tablet (1 mg) by mouth Once per day. 30 tablet 2 05/06/20 25 025 Active thiamine (Vitamin B-1) 100 MG tablet Take 1 tablet (100 mg) by mouth Once per day. 30 tablet 2 05/06/20 25 025 Active Multiple Vitamin (multivitamin) tabletIndication s:Alcohol use disorder Take 1 tablet by mouth Once per day. 90 tablet 2 05/06/20 25 Active hydrOXYzine pamoate (Vistaril) 50 MG capsule 1 or 2 capsules PO at bedtime prn sleep 60 capsule 2 06/03/20 25 Active ketoconazole (NIZOral) 2 % cream Apply BID for rash 60 g 2 06/03/20 25 Active ibuprofen 600 MG tablet Take 1 tablet (600 mg) by mouth every 6 (six) hours if needed (pain or fever). 100 tablet 2 06/24/20 25 025 Active albuterol (Ventolin HFA) 108 (90 Base) MCG/ACT inhalerIndicatio ns:Tobacco use INHALE 2 PUFFS BY MOUTH EVERY 4 HOURS NEEDED FOR WHEEZING OR SHORTNESS OF BREATH 18 g 3 06/24/20 25 Active tiotropium (Spiriva Respimat) 1.25 MCG/ACT inhalerIndicatio ns:Acute respiratory failure with hypoxia (CMS/HCC) Inhale 2 puffs Once per day. 4 g 3 06/24/20 25 Active gabapentin (Neurontin) 800 MG tabletIndication s:Lumbar radiculopathy Take 1 tablet (800 mg) by mouth 3 times daily. 90 tablet 5 06/24/20 25 026 Active lidocaine (Lidoderm) 5 % patchIndications :Other chronic pain Apply 1 patch topically if needed each day for moderate pain. Remove & discard patch within 12 hours or as directed by provider. 30 patch 3 06/24/20 25 025 Active cloNIDine (Catapres) 0.1 MG tablet Take 1 tablet by mouth 6 (six) times a day. 05/31/20 25 Active magnesium oxide (Mag-Ox) 400 (240 Mg) MG tablet Take 1 tablet by mouth Once per day. 05/31/20 25 Active Buprenorphine HCl-Naloxone HCl (Suboxone) 8-2 MG SL filmIndications: Uncomplicated opioid dependence (CMS/HCC) Place 1 Film under the tongue 3 times daily for 28 days. 84 Film 07/01/20 25 025 Active gabapentin (Neurontin) 800 MG tabletIndication s:Lumbar radiculopathy Take 1 tablet (800 mg) by mouth 3 times daily. 90 tablet 5 08/25/20 23 025 Discontinued(R eorder (will not trigger notification to Pharmacy)) tiotropium (Spiriva Respimat) 1.25 MCG/ACT inhalerIndicatio ns:Acute respiratory failure with hypoxia (CMS/HCC) Inhale 2 puffs Once per day. 4 g 3 02/09/20 24 025 Discontinued(R eorder (will not trigger notification to Pharmacy)) furosemide (Lasix) 40 MG tabletIndication s:Lower extremity edema Take 1 tablet (40 mg) by mouth Once per day. 90 tablet 1 11/16/19 25 025 Discontinued(T herapy completed) acamprosate (Campral) 333 MG EC tabletIndication s:Alcohol use disorder 1 pill PO BID on first, then 1 pill PO TID for 2 days, then 2 pills PO TID. day Do not crush, chew, or split. 90 tablet 12/03/19 25 025 Discontinued(T herapy completed) acamprosate (Campral) 333 MG EC tabletIndication s:Alcohol use disorder I tablet PO BID x 2 days, then 2 tablets PO TID. Do not crush, chew, or split. 90 tablet 2 12/08/19 25 025 Discontinued(T herapy completed) predniSONE (Deltasone) 20 MG tabletIndication s:Cellulitis, unspecified cellulitis site 2 tabs po daily for 5 days. Take with food. 10 tablet 02/19/20 025 Discontinued(T herapy completed) albuterol (Ventolin HFA) 108 (90 Base) MCG/ACT inhalerIndicatio ns:Tobacco use INHALE 2 PUFFS BY MOUTH EVERY 4 HOURS NEEDED FOR WHEEZING OR SHORTNESS OF BREATH 18 g 3 02/24/20 025 Discontinued(R eorder (will not trigger notification to Pharmacy)) ibuprofen 600 MG tablet 1 tablet 2-3 x daily for pain. Take with food. 30 tablet 03/18/20 25 025 Discontinued(T herapy completed) amoxicillin (Amoxil) 500 MG capsuleIndicatio ns:Cellulitis, unspecified cellulitis site Take 1 capsule po BID for 3 days 6 capsule 04/26/20 025 Discontinued(T herapy completed) Buprenorphine HCl-Naloxone HCl (Suboxone) 8-2 MG SL filmIndications: Uncomplicated opioid dependence (CMS/HCC) Place 1 Film under the tongue 3 times daily for 14 days. 42 Film 04/29/20 25 025 Discontinued(D uplicate order (will not trigger notification to Pharmacy)) hydrOXYzine pamoate (Vistaril) 25 MG capsule 1 or 2 capsule PO at bedtime prn sleep 60 capsule 1 05/06/20 25 025 Discontinued(D ose adjustment) Buprenorphine HCl-Naloxone HCl (Suboxone) 8-2 MG SL filmIndications: Uncomplicated opioid dependence (CMS/HCC) Place 1 Film under the tongue 3 times daily for 28 days. 84 Film 05/27/20 25 025 Discontinued(R eorder (will not trigger notification to Pharmacy)) Buprenorphine HCl-Naloxone HCl (Suboxone) 8-2 MG SL filmIndications: Uncomplicated opioid dependence (CMS/HCC) Place 1 Film under the tongue 3 times daily for 28 days. Do not start before July 01, 2025. 84 Film 07/01/20 25 025 Discontinued(R eorder (will not trigger notification to Pharmacy)) Active Problems Problem Noted Date Diagnosed Date Pulmonary nodules 06/26/2025 Overview (06/26/2025): Oct 2024: CT Chest/Abdomen: Few scattered pulmonary micronodules. According to the UPDATED 2017 Fleischner Society recommendations, the advised follow-up imaging for nodules <6mm in the upper lobes is not necessarily required in low-risk patients. In high-risk patients with a nodule in the upper lobe and/or demonstrating suspicious morphology, an optional CT follow-up at 12 months may be obtained. If stable at 12 months, no further follow-up is recommended. Plan: repeat CT Chest approx Oct 2025 Healthcare maintenance 06/24/2025 Overview (06/26/2025): Last Physical: 06/24/25 LDCT: agreed 06/24/25 --> last CT in Oct 2024 PSA: ordered 06/24/25 Colon CA screening: pt would like to proceed with Cologuard. Declined order on 06/24/25, but reports will discuss next appt. Lower extremity edema 11/16/2024 Assessment & Plan (06/26/2025 12:21 PM EDT): - h/o possible CHF (see R94.31). Previously rx furosemide 40mg daily with good response - Currently asymptomatic off medication. Assessment & Plan (11/16/2024 2:41 PM EST): H/o CHF, Off Lasix for months for unclear reasons. Refuses CXR or ER for further work up. Denies cerebral pain or SOB. -advised to resume lasix 40 mg once a day -labs ordered -ER precautions discussed Chronic left shoulder pain 05/23/2024 Acute respiratory failure with hypoxia 4 Assessment & Plan (06/26/2025 12:19 PM EDT): Hx of tobacco use - ?COPD Also with concern of possible pulm nodules during [facility] ED visit 12/31/23 Maintenance: Spiriva 1.25mcg/act, 2 puffs daily Rescue: albuterol PRN Previously referred to Pulm. Reports well controlled at this time with current regimen. Assessment & Plan (02/15/2024 2:13 PM EDT): Hx of tobacco use - ?COPD Also with concern of possible pulm nodules during [facility] ED visit 12/31/23 Maintenance: Spiriva 1.25mcg/act, 2 puffs daily Rescue: albuterol PRN Referral to Pulm Abnormal electrocardiogram (ECG) (EKG) 4 Overview (06/26/2025): Dx: suspected CAD/diastolic CHF/EKG changes noted during hospitalization January: Referral to [facility] 08/26/24: [facility] Cards - Dr. Jacobo. Eval for abnormal EKG - at office demonstrated bifasicular block: right bundle branch block & left anterior fasicular block. Proceeded with further evaluation: Echocardiogram with LVEF 55-60%; no significant valvular findings. Stress echo unremarkable at 6.3 METS work load. Per cards: May proceed with shoulder surgery. Low cardiac risk. Per [facility], there is also mention of CHF, although pt is not currently medically managed, denies SOB/LR, and last EF > 50%. Assessment & Plan (06/26/2025 12:02 PM EDT): - Smoking cessation strongly encouraged - ED/urgent care precautions reviewed Assessment & Plan (11/24/2024 4:19 PM EST): - Reports scheduled for stress test on 11/25/2024 - Continues with furosemide 40 mg daily with good response - ED/urgent care precautions reviewed Assessment & Plan (02/15/2024 2:32 PM EDT): Echo and Cards eval pending Tobacco use 01/28/2023 Assessment & Plan (06/26/2025 12:40 PM EDT): -Decreased to 1 pack per week, congratulated on improvement! Previously smoking 1 ppd. Continues vaping throughout the day -Encouraged smoking cessation resources such as pharmacomtherapy, [facility] smoking cessation group, and [facility] pharmacy smoking cessation clinic -Recommended low-dose CT for lung cancer screening. Patient declined 11/24/2024. Agreed during appt on 06/24/25 --> did have Chest CT Oct 2024. Referral on hold. Assessment & Plan (11/24/2024 4:29 PM EST): -Currently smoking 1 ppd, vaping -Encouraged smoking cessation resources such as pharmacomtherapy, [facility] smoking cessation group, and [facility] pharmacy smoking cessation clinic -Recommended low-dose CT for lung cancer screening. Patient declines 11/24/2024 Assessment & Plan (08/28/2023 2:22 PM EST): -Currently smoking 1 ppd -Encouraged smoking cessation resources such as pharmacomtherapy, [facility] smoking cessation group, and [facility] pharmacy smoking cessation clinic Assessment & Plan (04/27/2023 8:33 PM EDT): -Currently smoking 1/2-1 ppd -Encouraged smoking cessation resources such as pharmacomtherapy, [facility] smoking cessation group, and [facility] pharmacy smoking cessation clinic Assessment & Plan (01/28/2023 6:32 PM EDT): -Currently smoking 1 ppd -Initially hesitant about smoking cessation resources, but then expressed interest in patch -Start 21mg NRT patch daily Recurrent cellulitis 12/31/2022 Assessment & Plan (06/26/2025 12:13 PM EDT): >>ASSESSMENT AND PLAN FOR CELLULITIS WRITTEN ON 11/16/2024 2:42 PM BY SYED MOON MD Rash with evidence of superimposed cellulitis. Pt refuses all medications except amoxicillin and prednisone. I explained this is not the first choice of coverage but he was instant on that combo which is likely better than nothing given evidence of inflammation. Assessment & Plan (06/26/2025 12:13 PM EDT): >>ASSESSMENT AND PLAN FOR CELLULITIS WRITTEN ON 11/24/2024 4:29 PM BY GRECIA SANCHEZ Rash with evidence of superimposed cellulitis. Pt refuses all medications except amoxicillin and prednisone. Not the first choice of coverage but he was instant on that combo which is likely better than nothing given evidence of inflammation. Assessment & Plan (05/11/2023 11:00 AM EDT): [...] cont following with psych team -Referral to [facility] Derm team placed Assessment & Plan (12/31/2022 3:48 PM EDT): Prescribed Bactrim for cellulitis infection and hydrocortisone for surrounding areas with atopic dermatitis. Opioid dependence, uncomplicated 12/10/2022 Assessment & Plan (06/26/2025 12:16 PM EDT): Following with [facility] program - well controlled with Suboxone at this time Alcohol use disorder 09/10/2022 Assessment & Plan (06/26/2025 12:17 PM EDT): Reports has not had a drink over the 1-2 months (aside from 1/2 a Twisted tea) since he came out of rehab. Denies cravings for alcohol. Congratulated on progress. Assessment & Plan (11/24/2024 4:29 PM EST): Currently drinking approximately 10 nips per day Declines assistance with rehab on 11/24/2024, met with addictions recovery specialist Scheduled for [facility] appointment on 11/26/2024 Continues with Suboxone for OUD. Naltrexone interacts with Suboxone, may be candidate for acamprosate Lumbar nerve root impingement 09/10/2022 Overview (06/26/2025): 06/14/2025: Lumbar MRI demonstrated: multilevel spondylosis and neural impingement. L3-4, severe right subarticular recess and mild to moderate spinal stenosis with transiting right L4 nerve impinged due to broad bulging disc and subarticular protrusion. L4-5, severe disc degeneration with broad discosteophyte facet joint arthrosis encroaching upon both transiting L5 and exiting L4 nerves. L5-S1 severe disc degeneration with broad bulge and mild to moderate neuroforaminal stenoses. Exiting L5 nerve roots contacted without high-grade compression. Referrals to [facility] sent on 06/17/25 Previous MRI: 01/14/23: demonstrated multilevel degenerative changes of the lumbar spine most severe at L3-L4 and L4-L5 Assessment & Plan (06/26/2025 12:11 PM EDT): Cont Gabapentin 800mg 3x/day. Reviewed med safety and SE No bowel/bladder incontinence or saddle paresthesia. Follow up precautions. Encouraged to f/up with specialists as scheduled, sooner PRN Assessment & Plan (05/18/2025 1:30 PM EDT): MRI on 01/14/23 showed multilevel degenerative changes of the lumbar spine most severe at L3-L4 and L4-L5 Gabapentin to 800mg 1-3x/day. Reviewed med safety and SE Referral to [facility] Management placed 08/28/23 Referral to [facility] place 05/23/24 Plan: repeat lumbar MRI given worsening symptoms. No bowel/bladder incontinence or saddle paresthesia. Follow up precautions. Assessment & Plan (05/23/2024 3:18 PM EDT): MRI on 01/14/23 showed multilevel degenerative changes of the lumbar spine most severe at L3-L4 and L4-L5 Soreness and pain in BLE, shared decision making to increase gabapentin to 800mg TID. Reviewed med safety and SE Referral to [facility] Management placed 08/28/23 Referral to [facility] place 05/23/24 Assessment & Plan (08/28/2023 2:18 PM EST): MRI on 01/14/23 showed multilevel degenerative changes of the lumbar spine most severe at L3-L4 and L4-L5 Soreness and pain in BLE, shared decision making to increase gabapentin to 800mg TID. Reviewed med safety and SE Referral to [facility] Management placed 08/28/23 Assessment & Plan (04/27/2023 8:39 PM EDT): Refill of gabapentin 600mg TID, reviewed med safety and SE Orthopedic hardware present 09/10/2022 Mixed anxiety and depressive disorder 10/25/2021 Assessment & Plan (06/26/2025 12:22 PM EDT): No acute concerns today, cont following with psych team History of repair of rotator cuff 10/25/2021 Overview (06/26/2025): Followed by [facility]o Per consult January 2024: Large massive RTC tear in setting of prior surgery > 10 years ago Plan to book surgery for RTC repair 03/16/25: Unsuccessful attempt at Right rotator cuff repair. Plan to consider TSA. Assessment & Plan (05/23/2024 3:24 PM EDT): Pre-op completed 05/18/24. 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 Knee pain 04/07/2023 06/26/2025 Assessment & Plan (04/07/2023 1:33 PM EDT): Reports acute on chronic knee pain w no jhx of trauma No major findings on exam but painful w ambulation no swelling -requested today Mouna in [facility] to try to get record of last XR report -x now lidocaine patch and diclofenac prn cream -will avoid tylenol and NSAIDS w significantly elevated hx of LFTS -referred To orthopedic -pt reports following w one x back pain and given acute on chronic symptoms advised to f w specialist Class 1 obesity 02/14/2023 02/15/2024 Atopic dermatitis 12/31/2022 08/28/2023 Assessment & Plan (12/31/2022 3:47 PM EDT): Prescribed hydrocortisone 2.5% cream. Instructed patient to use it on dry affected skin but to not place it on open wounds. Chronic pain 10/25/2021 08/28/2023 Opioid abuse 10/25/2021 08/28/2023 Encounters Date Type Department Care Team Description 07/01/2025 9:30 AM EDT Office Visit [facility] [address] [place] [address] [phone] Anil Metzger MD Uncomplicated opioid dependence (CMS/HCC) (Primary Dx); Alcohol use disorder; Tobacco use 07/01/2025 Travel 06/30/2025 Patient Outreach [facility] [address] [place] [address] Lana Couch FNP Care Coordination ([facility] outreach for SDOH PT-1 and food needs-referral completed /) 06/30/2025 Telephone [facility] [address], [place] [phone] Lana Couch FNP pt1 06/24/2025 2:45 PM EDT Office Visit [facility] [address], [place] [phone] aLna Couch FNP Encounter for routine history and physical examination of adult (Primary Dx); Dietary counseling; Exercise counseling; Healthcare maintenance; Tobacco use; Acute respiratory failure with hypoxia (CMS/HCC); Lumbar radiculopathy; Other chronic pain; Abnormal electrocardiogram (ECG) (EKG); Lumbar nerve root impingement; History of hepatitis C virus infection; Opioid dependence, uncomplicated (CMS/[facility]); Alcohol use disorder; History of repair of rotator cuff; Lower extremity edema; Mixed anxiety and depressive disorder; Elevated blood pressure reading; Pulmonary nodules 06/24/2025 Travel 06/24/2025 Refill [facility] [address] [place] [phone] Macie Mcgregor RN Uncomplicated opioid dependence (CMS/HCC) 06/23/2025 Telephone [facility] [address] [place] [address] Lana Couch FNP CHART PREP 06/17/2025 Results Follow-Up [facility] [address] [place] [address] Lana Couch FNP MR Lumbar Spine w/o Contrast 06/17/2025 Patient Outreach [address] [address] Lana Couch FNP Pre-visit Planning (SDOH screening completed on 05/10/25 ) 06/07/[address] [address] Lana Couch FNP PT1 06/03/2025 9:15 AM EDT Telemedicine [address] [address] Anil Metzger MD Uncomplicated opioid dependence ([facility]) (Primary Dx); Alcohol use disorder; Tobacco use; Seborrheic dermatitis 06/03/2025 Travel 06/02/[address] [address] Lana Couch FNP 06/01/2025 Patient Outreach [address] [address] Lana Couch FNP Care Coordination ([facility] outreach for SDOH PT-1 - LVM ) 05/31/[address] [address] Lana Couch FNP PT-1 05/27/2025 Refill [facility] [address] [place] [phone] Ying Rudolph RN Uncomplicated opioid dependence ([facility]/HCC) 05/25/2025 Refill [facility] [address] [place] [phone] Ying Rudolph RN Uncomplicated opioid dependence ([facility]/HCC) 05/25/2025 Refill [facility] [address] [place] [phone] Ying Rudolph RN Uncomplicated opioid dependence ([facility]/HCC) 05/18/2025 11:30 AM EDT Telemedicine [address] [address] Lana Couch FNP Lumbar radiculopathy (Primary Dx); Degeneration of intervertebral disc of lumbar region with discogenic back pain and lower extremity pain 05/18/2025 Travel 05/17/[address] [address] Lana Couch FNP CHART PREP 05/10/2025 Patient Outreach [address] [address] Lana Couch FNP Pre-visit Planning 05/06/2025 9:45 AM EDT Telemedicine [address] [address] Anil Metzger MD Uncomplicated opioid dependence ([facility]) (Primary Dx); Alcohol use disorder; Tobacco use 05/06/2025 Patient Outreach [address] [address] David Marcial Recovery Supports 05/06/2025 Travel 04/29/2025 Refill [facility] [address] [place] [phone] Ying Rudolph RN Uncomplicated opioid dependence ([facility]) 04/29/2025 Refill [facility] [address] [place] [phone] Ying Rudolhp RN Uncomplicated opioid dependence ([facility]/HCC) 04/26/[address] [address] Lana Couch FNP Referral 04/26/2025 Telephone [facility] [address] [place] [address] Anil Metzger MD 04/25/2025 Telephone [facility] [address] [place] [address] Ying Rudolph RN 04/21/2025 Refill [facility] [address] [place] [address] Ying Rudolph, JOHN Tobacco use 04/20/2025 Telephone [facility] [address] [place] [address] Ying Rudolph RN 04/13/2025 Refill [facility] [address] [place] [address] Tray Santos RN Uncomplicated opioid dependence ([facility]/HCC) 04/11/2025 Patient Outreach [facility] [address] [place] [phone] Fabrice Cantu Recovery Supports 04/08/2025 9:30 AM EDT Telemedicine [facility] [address] [place] [phone] Anil Metzger MD Uncomplicated opioid dependence ([facility]) (Primary Dx); Alcohol use disorder; Tobacco use 04/08/2025 Patient Outreach [facility] [address] [place] [phone] Lana Couch FNP Care Coordination ([facility] outreach for SDOH PT-1 - LVM ) 04/08/2025 Telephone [facility] [address] [place] [address] Lana Couch FNP pt1 04/08/2025 Travel 04/07/2025 Refill [facility] [address] [place] [address] Ying Rudolph, JOHN Uncomplicated opioid dependence ([facility]/HCC) 04/07/2025 Patient Outreach [facility] [address] [place] [phone] Fabrice Cantu Recovery Supports 04/06/2025 Telephone [facility] [address] [place] [address] Ying Rudolph RN 04/06/2025 Telephone [facility] [address] [place] [address] Anil Metzger MD 04/01/2025 Patient Outreach [facility] [address] [place] [address] Bradley Monteiro Pre-visit Planning (Pre visit planning LVM ) 04/01/2025 Patient Outreach [facility] [address] [place] [address] Fabrice Cantu Recovery Supports from Last 3 Months Immunizations Immunization Administration [...] Sign Reading Time Taken Comments Blood Pressure 142/90 06/24/2025 3:10 PM EDT Pulse 76 06/24/2025 3:10 PM EDT Temperature 36.9 C (98.4 F) 06/24/2025 3:10 PM EDT Respiratory Rate 16 06/24/2025 3:10 PM EDT Oxygen Saturation 97% 02/23/2025 9:59 AM EDT Inhaled Oxygen Concentration - - Weight 99.7 kg (219 lb 12.8 oz) 06/24/2025 3:10 PM EDT Height 172.7 cm (5' 8 ) 06/24/2025 3:10 PM EDT Body Mass Index 33.42 06/24/2025 3:10 PM EDT Plan of Treatment Upcoming Encounters Date Type Department Care Team (Late st Contact Info) Description 07/29/2025 10:15 AM EDT Office Visit [facility] [address] [place] [address] Anil Metzger MD [address] [place] [address] Health Maintenance Due Date Last Done Comments CT Colonography 1965 FIT DNA/Cologuard 1965 FIT 1965 FOBT 1965 Sigmoidoscopy 1965 Hepatitis A Vaccines (1 of 2 - Risk 2-dose series) 02/26/1984 Pneumococcal Vaccine: 50+ Years (1 of 2 - PCV) 02/26/1984 Zoster Vaccines (1 of 2) 2015 Colonoscopy 02/26/2020 2010 Colorectal Cancer Screening 02/26/2020 Hepatitis B Vaccines (1 of 3 - Risk 3-dose series) 2025 RSV Patients and Patients Aged 60 years or older (1 - Risk 60-74 years 1-dose series) 2025 COVID-19 Vaccine (4 - 2024-2 6 season) 2025 12/31/2022, 07/13/2021, 06/22/2021 Influenza Vaccine (#1) 2025 07/14/2013 Tobacco Screening 11/24/2025 11/24/2024 SDOH Screening 05/10/2026 05/10/2025 Alcohol/Substance Use Screening 06/24/2026 06/24/2025 Depression Screening 06/24/2026 06/24/2025, 06/24/2025 Disability Screening 06/24/2026 06/24/2025 Lipid Panel 03/01/2027 03/01/2022 DTaP/Tdap/Td Vaccines (2 [...] 07/01/2025 9:22 AM EDT Uncomplicated opioid dependence (CMS/HCC) MR LUMBAR SPINE WO CONTRAST Routine 06/14/2025 Lumbar radiculopathy Degeneration of intervertebral disc of lumbar region with discogenic back pain and lower extremity pain HIV 1/2 ANTIGEN/ANTIBODY, FOURTH GENERATION W/RFL Routine 04/07/2023 10:08 AM EDT Opioid dependence, uncomplicated (CMS/HCC) LIPID PANEL, STANDARD Routine 03/01/2022 11:10 AM EDT HM COLONOSCOPY Routine 2010 from Last 3 Months or Most Recently Relevant to Health Maintenance Results * (ABNORMAL) POCT RONAK-14 Urine Drug [...] procedure / Unknown 07/01/2025 9:22 AM EDT Anil Metzger MD POINT OF CARE TEST ENTER/EDIT ORDERABLES Final Result * MR Lumbar Spine w/o Contrast (06/14/2025) Anatomical Region Laterality Modality Spine, L-spine Magnetic Resonan ce Lana Couch MANAGER OF HEALTH IMG MRI PROCEDURES Final Resul t * HIV-1/2 Antigen and Antibodies, Fourth Generation, with Reflexes (04/07/2023 10:08 AM EDT) Pathologist [facility] HIV Antigen/Antibody, 4th Generation NON-REAC TIVE NON-REAC TIVE [facility] [employer] [facility] Comment: HIV-1 antigen and HIV-1/HIV-2 antibodies were not detected. There is no laboratory evidence of HIV infection. PLEASE NOTE: This information has been disclosed to you from records whose confidentiality may be protected by state law. If your state requires such protection, then the state law prohibits you from making any further disclosure of the information without the specific written consent of the person to whom it pertains, or as otherwise permitted by law. A general authorization for the release of medical or other information is NOT sufficient for this purpose. For additional information please refer to http://education.[employer]/faq/YMG758 (This link is being provided for informational/ educational purposes only.) The performance of this assay has not been clinically validated in patients less than 2 years old. Blood Venous blood specimen / Unknown 04/07/2023 10:08 AM EDT 04/07/2023 10:08 AM EDT Narrative [facility] - 04/13/2023 11:56 PM EDT FASTING:NO FASTING: NO us Aditya Summers MD LAB BLOOD ORDERABLES Final Resul t [employer] [address], [place] [address] [employer] [facility] [address] [place] [address] * LIPID PANEL, STANDARD (03/01/2022 11:10 AM EDT) Chol/HDLC Ratio 3.3 <5.0 (calc) [facility] Cholesterol, Total 150 <200 mg/dL [facility] HDL Cholesterol 45 > OR = 40 mg/dL [facility] LDL Cholesterol 91 mg/dL (calc) [facility] Comment: Reference range: <100 Desirable range <100 mg/dL for primary prevention; <70 mg/dL for patients with CHD or diabetic patients with > or = 2 CHD risk factors. LDL-C is now calculated using the Didier-Teresa calculation, which is a validated novel method providing better accuracy than the Friedewald equation in the estimation of LDL-C. Didier FLORES et al. DANIEL. 2013;310(19): 2526-9614 (http://education.[employer].Beijingyicheng/faq/KQN093) Non-HDL Cholesterol 105 <130 mg/dL (calc) [facility] Comment: For patients with diabetes plus 1 major ASCVD risk factor, treating to a non-HDL-C goal of <100 mg/dL (LDL-C of <70 mg/dL) is considered a therapeutic option. Triglycerides 62 <150 mg/dL [facility] 03/01/2022 11:1 0 AM EDT us Barbara Shawn MANAGER OF HEALTH LAB BLOOD ORDERABLES Final Res ult [facility] [address] * Colonoscopy (2010) Colonoscopy Normal Normal us Historical Provider HEALTH MAINTENANCE Final Result from Last 3 Months or Most Recently Relevant to Health Maintenance Insurance [facility] STANDARD Advance Directives Documents on File Type Date Recorded Patient Sole Cutter Expl anation Advance Directives and Livin g Will 09/24/2024 9:34 AM Hippa Form Care Teams Sorter Laundry Articles Relationship Specialty Start Date End Date Lana Couch FNP [address] [place] [address] PCP - General Family Medicine 01/28/23
--- OUTSIDE RECORDS SUMMARY | 2025-07-01 10:15 | XMS_ITS | Clinical Summary ---
Author Organization [facility] Address [address] [place] [address] Care Team Providers Care Fax Machine Repairer Name Role Phone TravonBella womack Emily RN Unavailable Yemi Robin DO Unavailable Yemi Robin DO Primary Care Provider [phone] Allergies No known active allergies Medications ALPRAZolam (XANAX) 1 MG tablet TK 1 T PO TID 0 7 Active amoxicillin (AMOXIL) 500 MG capsule TAKE ONE CAPSULE BY MOUTH 3 TIMES A DAY FOR 10 DAYS 0 7 Active ibuprofen (MOTRIN) 600 MG tablet TAKE 1 TABLET ORALLY 3 TIMES A DAY NEEDED FOR PAIN 0 7 Active ipratropium (ATROVENT) 0.06 % nasal spray USE 2 SPRAYS IN THE NOSTRILS FOUR TIMES A DAY 0 6 Active oxyCODONE (ROXICODONE) 10 mg Tab immediate release tablet TK 1 T PO BID FOR BREAKTHROUGH 0 7 Active oxyCODONE (ROXICODONE) 30 MG immediate release tablet TK 1 T PO TID 0 7 Active oxyCODONE-aceta minophen (PERCOCET) 10-325 mg per tablet Take by mouth. for pain 0 7 Active Probiotic Product ([employer] PROBIOTIC) Cap Take 1 capsule by mouth daily. 0 7 Active oxyCODONE-aceta minophen (PERCOCET) 5-325 mg per tablet Take 1 tablet by mouth every 4 (four) hours as needed. for pain 0 7 Active Active Problems No known active problems Social History Tobacco Use Types Packs/Day Years Used Date Smoking Tobacco: Never Assessed Sex and Gender Information Value Date Recorded Sex Assigned at Not on file Legal Sex Male 11:26 AM EDT Gender Identity Not on file Sexual Orientation Not on file Last Filed Vital Signs Vital Sign Reading Time Taken Comments Blood Pressure 140/87 11/10/2024 4:43 AM EST Pulse 66 11/10/2024 4:43 AM EST Temperature 36.1 C (96.9 F) 11/10/2024 4:06 AM EST Respiratory Rate 16 11/10/2024 4:43 AM EST Oxygen Saturation 96% 11/10/2024 4:43 AM EST Inhaled Oxygen Concentration - - Weight 82.3 kg (181 lb 8 oz) 02/19/2017 9:55 AM EDT Height 171.5 cm (5' 7.5 ) 02/19/2017 9:55 AM EDT Body Mass Index 28.01 02/19/2017 9:55 AM EDT Plan of Treatment Health Maintenance Due Date Last Done Comments DTaP/Tdap/Td Vaccines (1 - Tdap) 02/26/1984 Pneumococcal Vaccines 50+ (1 of 2 - PCV) 02/26/1984 Colonoscopy 2010 Zoster (Shingles) Vaccine (1 of 2) 2015 Influenza Vaccine 05/13/2025 07/14/2013 COVID-19 Vaccine ( - season) 2025 12/31/2022, 07/13/2021, 06/22/2021 RSV Vaccine 60 years and older and Patients (1 - 1-dose 75+ series) 02/26/2040 Hepatitis C Virus Screening Completed 02/10, 12/18/2016, 12/18/2016, Additional history exists HIV Screening Completed 04/07/2023 Hepatitis B Vaccines Aged Out No long er eligible based on patient's age to complete this topic Insurance [facility] Care Teams Fax Machine Repairer Relationship Specialty Start Date End Date Yemi Robin DO [address] [place] [address] PCP - General Internal Medicine 12/17/16 Bella oCol RN [address] [address] Registered Nurse Hepatology 10/22/16 Yemi Robin DO [address] [place] [id number] Internal Medicine 10/22/16
[2025-07-01 11:32] LABS: MANUAL DIFF FLAG NO
[2025-07-01 11:36] LABS: Hematocrit 38.4 % (42.0-52.0); Hemoglobin 13.5 g/dl (14.0-18.0); Imm Gran Abs Auto 0.01 X10*3/uL (0.00-0.03); Imm Gran Pct Auto 0.2 % (0.0-0.4); Lymphocytes Absolute Auto 1.9 X10*3/uL (1.2-4.9); Mean Corpuscular HGB Conc 35.2 g/dl (31.0-36.0); Mean Corpuscular Hemoglobin 31.0 pg (27.0-33.0); Mean Corpuscular Volume 88.3 fL (80.0-98.0); NRBC Abs Auto 0.000 X10*3/uL (0.0-0.012); NRBC Pct Auto 0.0 /100WBC (0.0-0.2); Platelet Count 192 X10*3/uL (160-400); Red Blood Count 4.35 X10*6/uL (4.60-5.80); White Blood Count 5.5 X10*3/uL (4.8-10.8)
[2025-07-01 11:51] LABS: Total Hemoglobin (HGBA1C) 3538.3394 umol/L
[2025-07-01 12:08] LABS: Alanine Aminotransferase 24 U/L (0-40); Albumin Level 4.2 g/dL (3.5-5.0); Alkaline Phosphatase 75 U/L (39-117); Anion Gap 12 (12-20); Aspartate Amino Transferase 36 U/L (5-37); Blood Urea Nitrogen 10 mg/dL (9-16); Calcium 9.0 mg/dL (8.4-10.2); Carbon Dioxide 25 mmol/L (22-29); Chloride 109 mmol/L (96-108); Cholesterol 166 mg/dL (<200); Estimated Glomerular Filt Rate > 60; HDL Cholesterol 38 mg/dL (>40); Potassium 4.1 mmol/L (3.3-5.1); Sodium 142 mmol/L (135-145); Total Protein 7.1 g/dL (6.5-8.0); Triglycerides 73 mg/dL (<150)
[2025-07-01 12:09] LABS: Alanine Aminotransferase 24 U/L (0-40); Albumin Level 4.2 g/dL (3.5-5.0); Alkaline Phosphatase 75 U/L (39-117); Anion Gap 11 (12-20); Aspartate Amino Transferase 33 U/L (5-37); Blood Urea Nitrogen 10 mg/dL (9-16); Calcium 9.1 mg/dL (8.4-10.2); Carbon Dioxide 26 mmol/L (22-29); Chloride 109 mmol/L (96-108); Estimated Glomerular Filt Rate > 60; Potassium 4.2 mmol/L (3.3-5.1); Prostate Specific Antigen 0.10 ng/mL (<0.05-4.0); Sodium 142 mmol/L (135-145); Total Protein 7.1 g/dL (6.5-8.0); ~Hepatitis A Antibody IgG 0.34 S/CO (0.00-0.99)
[2025-07-01 12:21] LABS: HBS Num1 0.12 mIU/mL (0-7.99); HBc Num1 0.08 S/CO (0.00-0.79); HBsAGNum1 0.43 S/CO (0.00-0.99); HIV Num 1 0.04 S/CO (0.00-0.99); Hepatitis B Surface Antigen Negative (Negative); ~HepC Num1 13.01 S/CO (0.00-0.79); ~Hepatitis B Surface Antibody NONREACTIVE (Nonreactive); ~Hepatitis C Antibody Reactive (Nonreactive)
[2025-07-01 12:23] LABS: Folate 13.3 ng/mL (> or = 4.0); Vitamin B12 617 pg/mL (200-900)
[2025-07-06 15:25] LABS: HCV Log PCR <1.18 NOT DETECTED Log IU/mL (NOT DETECTED); HepC Viral Load <15 NOT DETECTED IU/mL (NOT DETECTED)
[2025-07-09 17:48] LABS: FIB-ALT 18 U/L (9-46); FIB-Alpha-2-Macroglobulin 356 mg/dL (106-279); FIB-Apolipoprotein A1 126 mg/dL (94-176); FIB-GGT 27 U/L (3-70); FIB-Haptoglobin 128 mg/dL (43-212); FIB-Total Bilirubin 0.4 mg/dL (0.2-1.2); Liver Fibrosis Score 0.55; Liver Fibrosis Stage F2; Nec Inflam Act Grade A0; Nec Inflam Act Score 0.10
== END 2025-07-01 09:40 | disposition home or self-care (01) ==
LOC: HO.HHCL 09:39
PROVIDERS: Family Medicine; PCP Registered Nurse; Referring Provider Registered Nurse; Visit Provider Emergency Medicine
DX: Z00.00 Encounter for general adult medical examination without abnormal findings (principal); M79.89 Other specified soft tissue disorders; Z78.9 Other specified health status; F10.90 Alcohol use, unspecified, uncomplicated; Z86.19 Personal history of other infectious and parasitic diseases; Z11.3 Encounter for screening for infections with a predominantly sexual mode of transmission; Z11.4 Encounter for screening for human immunodeficiency virus [HIV]; Z11.59 Encounter for screening for other viral diseases
CPT/HCPCS: 36415; 80048; 80053; 80061; 80076; 81596; 82105; 82248; 82607; 82746; 83036; 84153; 84443; 85025; 86592; 86704; 86706; 86708; 86803; 87340; 87389; 87522

== ENCOUNTER 2025-09-23 09:53 | Outpatient (REF) | payer MEDICAID, SELFPAY | END 2025-09-23 09:54 | disposition home or self-care (01) | LOC: HO.CHCLDS 09:53 | PROVIDERS: Visit Provider Registered Nurse | DX: R53.83 Other fatigue (principal) | CPT/HCPCS: 36415; 84402; 84403 ==